=== PATIENT | male | born 1960 | race Caucasian/White ===

== ENCOUNTER 2020-06-11 11:12 | Emergency (ER) | payer MEDICAID, SELFPAY ==
[2020-06-11 11:17] VITALS: BP 150/98; PULSE 59; RESP 20; TEMP 36.6; O2SAT 99
--- NOTE | 2020-06-11 11:27 | ECG_ITS ---
Measurements Intervals [place] Rate: 51 P: 88 [place]: 156 QRS: 61 QRSD: 141 T: 87 QT: 467 QTc: 432 Interpretive Statements SINUS BRADYCARDIA RIGHT BUNDLE BRANCH BLOCK INFERIOR ST ELEVATION MYOCARDIAL INFARCT- ACUTE ABNORMAL ECG Electronically Signed On 06-11-2020 14:20:57 CDT by Steve De La Garza D.O.
--- NOTE | 2020-06-11 11:38 | ED.CHESTPAIN ---
HPI - Chest Pain General Chief Complaint: Chest Pain Stated Complaint: chest pain/lt arm pain/sore throat Time Seen by Provider: 06/11/20 11:20 Source: patient Mode of arrival: ambulatory Limitations: no limitations History of Present Illness HPI narrative: 59-year-old male. Presents to [facility] today ambulatory via triage. Chief complaint is onset of midsternal chest pressure radiating down left arm since yesterday. The patient denies any history of hypertension [place]. He is a non-smoker nondiabetic. The patient describes the pain as a burning sensation and pressure. It started intermittent and has now become constant. He notes associated dyspnea and trouble swallowing. Patient applied to EKG immediately upon arrival and noted to have ST elevations in lead I and II. MD complaint: chest pain and chest discomfort Pertinent past history: other (Denies ) Onset (ago): day(s) (1) Timing of current episode: constant Prior episodes: No Onset: during rest Pain location: substernal and left chest Pain radiation: left arm Severity: moderate Pain scale (0-10): 8 Quality: heaviness, sharp and burning Relieving factors: nothing Exacerbating factors: nothing Context: other (None reported ) Associated symptoms: dyspnea Treatment prior to arrival: none Related Data Home Medications Medication Instructions Recorded Confirmed No Home Medications 06/11/20 06/11/20 Allergies Allergy/AdvReac Type Severity Reaction Status Date / Time No Known Allergies Allergy Mild Unverified 06/11/20 11:24 Review of Systems Review of Systems: Narrative: CONSTITUTIONAL: Denies fever, chills, sweats. EYES: Denies visual changes, redness, discharge. ENT: Denies rhinorrhea, congestion, sore throat, otalgia. CARDIOVASCULAR: Mid-sternal Chest pain, dyspnea. RESPIRATORY: Denies dyspnea, wheezing, cough GASTROINTESTINAL: Denies abdominal pain, nausea, vomiting, diarrhea. GENITOURINARY: Denies dysuria, hematuria, abnormal discharge SKIN: Denies rash or itching. MUSCULOSKELETAL: Denies acute back pain, joint pain, or myalgia. NEUROLOGIC: Denies numbness, or focal weakness. PSYCHIATRIC: Denies anxiety or depression. All systems reviewed & are unremarkable except as noted in HPI and below PMFSH Past Medical History Medical History (Updated 06/11/20 @ 12:08 by Sachi A. Huegen, PROFESSOR OF GRAPHIC DESIGN-C) No known problems Exam Narrative: Exam Narrative: GENERAL: This is a well-nourished, well-developed patient, in no apparent distress. Obese. HEAD: normocephalic, atraumatic. EYES: PERRL. Sclera clear/white. Vision is grossly intact. EARS: External ears normal, auditory canals clear and without drainage, TMs normal without perforation. Hearing grossly intact. NOSE: External nose normal with no obvious nasal discharge, nares without redness, no rhinorrhea. THROAT: Mucous membranes moist, posterior pharynx clear. NECK: Neck supple, non-tender without lymphadenopathy, masses or thyromegaly. CARDIOVASCULAR: Bradycardia. RESPIRATORY: Clear to auscultation. Breath sounds equal bilaterally. No wheezes, rales, or rhonchi. GASTROINTESTINAL: Abdomen soft, non-tender, nondistended. Bowel sounds are active. No hepato-splenomegaly, or palpable masses. No guarding. SKIN: warm, intact with no suspicious lesions or rash, good texture and turgor. NEURO: awake, alert, and oriented to person, place and time. There were no obvious focal neurologic abnormalities. Steady gait EXTREMITIES: Normal range of motion. No edema. No calf tenderness. Negative Homans sign bilaterally. BACK: Nontender without deformity or crepitance. No flank tenderness. Vernal Coma Scale Eye Opening: Spontaneous 4 Vernal Coma Scale Motor: Obeys Commands 6 Davis Coma Scale Verbal: Oriented 5 Course Course Emergency Course: EKG completed 1132. ASA 324 given in clinic. Transfer Transfered to: [facility]: [facility] Transfer rationale: STEMI. Accepting physician: Concepcion CARDENAS @ [id number].
[2020-06-11] MEDS: ASPIRIN 81 MG CHEWABLE TABLET 324 MG PO (11:40)
== END 2020-06-11 11:43 | disposition short-term general hospital (02) ==
PROVIDERS: Emergency Provider Nurse Practitioner Adult Health
DX: I21.3 ST elevation (STEMI) myocardial infarction of unspecified site (principal)
CPT/HCPCS: 93005; 99215; A9270; G0463; J2250; J3010

== ENCOUNTER 2020-06-11 12:03 | Inpatient (IN) | payer MEDICAID, SELFPAY ==
[2020-06-11] VITALS (11 sets, daily range): BP systolic 128–161; BP diastolic 78–104; PULSE 48–78; RESP 16–22; TEMP 36.4–36.7; O2SAT 94–100; BMI 33.7
--- NOTE | ~2020-06-11 | US_ITS ---
EXAMINATION: US right upper quadrant EXAM DATE: 06/12/2020 11:41 INDICATION: Right upper quadrant pain. TECHNIQUE: Multiple grayscale and Doppler images of the abdomen right upper quadrant were obtained (b y a technologist who performed the scan) and subsequently reviewed. There is no prior study for shercie sutton. FINDINGS: Poor acoustic window, limiting evaluation of liver and pancreas. There is echogenic liver parenchyma, hepatic steatosis. Small region focal fatty sparing. There is no evidence of intrahepatic biliary duct dilation. Portal venous flow was seen in the hepatopedal, n ormal direction and has normal Doppler waveform. No right-sided hydronephrosis. Common bile duct is within normal size limits. Gallbladder is unremarkable. No cholelithiasis or p ericholecystic fluid. Technologist performing exam reports patient did not demonstrate sonographic Mu rphy's sign. Please note that this sign is less reliable in patients who have received pain medicati on. IMPRESSION: 1. Hepatic steatosis. Reviewed, dictated and finalized at location B. IMPRESSION: 1. Hepatic steatosis.
--- NOTE | 2020-06-11 11:55 | ED.CHESTPAIN ---
HPI - Chest Pain General Chief Complaint: Chest Pain Stated Complaint: STEMI Source: patient and EMS Mode of arrival: EMS Limitations: no limitations History of Present Illness HPI narrative: Patient presented via EMS for evaluation of chest pain. Patient initially seen at an urgent care this morning where he reported symptoms were present for over 24 hours. Patient had EKG done at which was consistent with STEMI, thus patient given ASA and transferred via EMS. Patient was not given nitroglycerin. At the time of arrival to our facility, patient is awake, alert and oriented. He reports mild neck discomfort, mild central chest pain. He reports pain is worse from yesterday but still mild overall in nature. He has some associated nausea, no vomiting, no shortness of breath or diaphoresis. Patient denies any abdominal pain. Patient states he does not see a primary care physician because he has no medical problems. Related Data Home Medications Medication Instructions Recorded Confirmed No Home Medications 06/11/20 06/11/20 Allergies Allergy/AdvReac Type Severity Reaction Status Date / Time No Known Allergies Allergy Mild Unverified 06/11/20 11:24 Review of Systems Review of Systems: Narrative: CONSTITUTIONAL: Denies fever CARDIOVASCULAR: Reports chest pain RESPIRATORY: Denies cough or dyspnea. GASTROINTESTINAL: Denies abdominal pain, reports nausea SKIN: Denies rash MUSCULOSKELETAL: Denies back pain NEUROLOGIC: Denies headache [facility] Social History Social History (Updated 06/11/20 @ 12:21 by Stacy Javier MD) Smoking status: Never smoker Exam Narrative: Exam Narrative: GENERAL: Awake, alert, conversant HEAD: Normocephalic, atraumatic. EYES: PERRLA and EOMI. ENT: Nares clear, no rhinorrhea or epistaxis. Mucous membranes moist. NECK: Supple. CHEST: No respiratory distress, breathing even and non labored HEART: Regular rate, sinus rhythm ABDOMEN:Non distended, non tender EXTREMITIES: Normal range of motion. No edema. SKIN: Warm, dry, no rash. NEURO:No focal deficits. Alert and oriented x3 Course Vital Signs Vital signs: Vital Signs Temperature 36.7 C 06/11/20 12:05 Pulse Rate 64 06/11/20 12:05 Respiratory Rate 20 06/11/20 12:05 Blood Pressure 138/82 06/11/20 12:05 Pulse Oximetry 97 06/11/20 12:05 Temperature 36.7 C 06/11/20 12:24 Pulse Rate 70 06/11/20 12:24 Respiratory Rate 18 06/11/20 12:24 Blood Pressure 132/78 06/11/20 12:24 Pulse Oximetry 98 06/11/20 12:24 MDM - Chest Pain MDM Narrative Medical decision making narrative: Patient is a 59-year-old who presented via EMS for evaluation of EKG changes and chest pain consistent with STEMI. Initial EKG from urgent care consistent with inferior STEMI, patient had began of an aspirin and nitroglycerin was held. Patient transported to our facility with stable vital signs, mild pain. At the time of assessment, pain continues to be mild he reports only mild nausea. He was given Zofran, pain medication, heparin bolus. Cardiology/Community Health Planning Director team reviewed the EKG and also felt it was consistent with inferior STEMI. Patient will be taking emergently to cardiac catheterization lab. Differential Diagnosis Differential diagnosis: Likely stable angina, unstable angina pectoris, atypical chest pain, st elevation myocardial infarction and chest pain Medical Records Data Attestation: I reviewed the patient's medical records. Lab Data Attestation: I reviewed the patient's lab results. ECG Data EKG #1: ECG completion date: 06/11/20 ECG completion time: 12:06 Interpretation: Rate 61, sinus rhythm, MD interval normal, QRS narrow, QTC normal, ST elevation inferiorly, leads II, 3, aVF with reciprocal changes, consistent with STEMI, STEMI called Compared to EKG from urgent care also consistent with STEMI. Critical Care Time Critical Care Time Critical Care Time: Yes Total Critical Care Time: 30 Discharg
--- NOTE | 2020-06-11 12:10 | ECG_ITS ---
Measurements Intervals [place] Rate: 61 P: 56 [place]: 123 QRS: 47 QRSD: 139 T: 88 QT: 429 QTc: 434 Interpretive Statements SINUS RHYTHM ATRIAL PREMATURE COMPLEX RIGHT BUNDLE BRANCH BLOCK INFERIOR ST ELEVATION MYOCARDIAL INFARCT- ACUTE BASELINE ARTIFACT- V1, V5 ABNORMAL ECG Electronically Signed On 06-11-2020 14:22:12 CDT by Steve De La Garza D.O.
--- NOTE | 2020-06-11 13:12 | ECG_ITS ---
Measurements Intervals [place] Rate: 69 P: 123 [place]: 110 QRS: 27 QRSD: 146 T: 34 QT: 417 QTc: 448 Interpretive Statements SINUS RHYTHM WITH SHORT [place] INTERVAL ATRIAL PREMATURE COMPLEXES RIGHT BUNDLE BRANCH BLOCK INFERIOR ST ELEVATION MYOCARDIAL INFARCT- ACUTE BASELINE WANDER- I, AVR, AVL ABNORMAL ECG Electronically Signed On 06-11-2020 14:22:40 CDT by Steve De La Garza D.O.
--- NOTE | 2020-06-11 13:18 | WPDCARDPROC ---
Cardiac Cath Procedure Note Date of procedure:: 06/11/20 Performing physician:: Jt Benoit MD Indication:: inferior wall ST-elevation [place] with late presentation Brief clinical history:: 59-year-old man without previous cardiac history reports onset of significant retrosternal chest pain with nausea yesterday afternoon at 3:00 p.m.. Symptoms worsened this morning and so he came to the emergency room late morning/ early afternoon. ECG demonstrates evidence of acute inferior wall injury pattern. Procedure Procedure performed:: Emergency coronary angiography and left ventriculography emergency PCI to distal RCA bifurcation with PTCA/kissing balloon angioplasty Sedation/Medication given:: fentanyl 50 mg Versed 2 mg case start time 12:26 p.m. case end time 1:07 p.m. sedation provided by Ioana [facility] RN, trained observer Access site:: right femoral Estimated blood loss:: 20-30 CC Procedure note:: patient was brought to the cardiac catheterization lab in the emergency setting as described above. The right femoral triangle was prepped and draped in the normal fashion. Anesthesia was provided with 10 cc of 1% lidocaine infiltrated locally. Using the modified Seldinger technique the femoral artery was punctured and a 6 [place] vascular sheath was placed. After this I used a standard 5 [place] FL4 catheter to engage inject the left coronary artery in multiple projections. Following this a 6 [place] JR4 guiding catheter was used to engage inject the right coronary artery. The same catheter was used to initiate PCI of the distal RCA as detailed below. Following initial inflations this catheter was exchanged for a 6 [place] JR4 with side holes. Prior to PCI the patient was systemically anticoagulated with Angiomax. He did receive 1 dose of Brilinta 180 mg p.o.. Patient received aspirin and heparin in the emergency room as well. Following completion of PCI the guiding catheter was removed and a 5 [place] angled pigtail catheter was used to measure left-sided hemodynamics and to injected LV g in the HOBBS projection. Pullback pressures were measured across the aortic valve. The case was then terminated the sheath was sutured into position any was taken to the ICU for recovery. Findings:: Hemodynamics: Central aortic pressure was 121/73 left ventricle 121/6 end-diastolic pressure 14 there is no systolic gradient on pullback across the aortic valve. The left ventricle is normal in size the mid to basal segment of the inferior wall is akinetic. The diaphragmatic segment contracts well the anterior wall contracts well global ejection fraction I would visually estimate to be 50%. The left main coronary artery is medium in caliber and nicely patent the LAD is a medium caliber artery that is diffusely disease. There is about 80% stenosis proximally and 70-80% stenosis in the midportion of the vessel. The entire vessel however has visible atherosclerosis the circumflex is a moderate caliber artery that is also severely diffusely diseased. The 1st OM takes off is a high ramus intermedius branch and has proximal 90-95% stenosis. The 2nd marginal branch is also a medium-sized artery that has proximal and mid 90% lesion. The distal 3rd OM branch is relatively small but also has proximal 90% stenosis. The right coronary artery is dominant to the posterior circulation is medium in caliber. The trunk of the right coronary artery is free of significant lesions but it is 100% occluded distally at the site of the PDA/PL bifurcation this is the culprit for the patient's presentation. Intervention: The patient initially as stated above had the right coronary engaged with the standard JR4 guiding catheter. a artery was wired using a 0.014 BMW wire which passed into the RPL system. I made a balloon inflation at the occlusion which did restore flow into the PL as well as into the PDA with these vessels could be visualized. It was clear
[2020-06-11 13:41] LABS: Basophils Absolute Auto 0.1 K/mm3 (0.0-0.1); Basophils Percent Auto 0.8 % (0.2-1.2); Eosinophils Absolute Auto 0.1 K/mm3 (0-0.3); Eosinophils Percent Auto 0.9 % (0-4.4); Hematocrit 46.9 % (42.0-52.0); Hemoglobin 16.3 g/dL (14.0-18.0); Immature Granulocyte Absolute 0.01 K/mm3 (0.00-0.031); Immature Granulocyte Percent A 0.1 % (0-0.5); Lymphocytes Absolute Auto 1.13 K/mm3 (0.9-3.2); Lymphocytes Percent Auto 14.6 % (18.3-44.2); Mean Corpuscular HGB Conc 34.8 g/dl (32-36); Mean Corpuscular Hemoglobin 31.1 pg (26-34); Mean Corpuscular Volume 89.5 fl (80-100); Mean Platelet Volume 10.7 fl (7.4-10.4); Monocytes Absolute Auto 0.4 K/mm3 (0.1-0.6); Neutrophils Absolute Auto 6.1 K/mm3 (1.3-6.7); Neutrophils Percent Auto 78.6 % (45.5-73.1); Platelet Count Result 165 k/mm3 (150-375); Red Blood Count 5.24 M/mm3 (4.6-6.20); Red Cell Distribution Width 12.4 % (11.5-14.5); White Blood Count 7.7 K/mm3 (4.5-10.0)
--- NOTE | 2020-06-11 13:50 | PM.IMHP ---
H&P: HPI History of Present Illness Date/Time: 06/11/20 13:50 Chief complaint: STEMI Narrative: Papa Fields is a 59 year old male Who presented to the emergency room a short time ago with chest pain and his electrocardiogram was consistent with an acute inferior wall myocardial infarction. I am seeing the patient in the cardiac catheterization lab very briefly while he is prepared for emergency angiography as the STEMI protocol was activated following his presentation. The patient reports that he has not been known to have any cardiac problems in the past in fact he was on no home medications for any prior medical problems. He reports that he started to experience these symptoms at about 3:00 p.m. yesterday afternoon he describes a retrosternal pain / burning like sensation associated with nausea. The symptoms were waxing and waning but they were present throughout the evening and worsened this morning so he came to the emergency room and called an ambulance. The patient as he is being prepped for emergency catheterization appears to be comfortable but is reporting residual 5/10 retrosternal chest pain. He is in sinus rhythm and there is no evidence of AV node dysfunction as of this time. Review of Systems Review of Systems: ROS unobtainable: Yes unobtainable due to medical condition [facility] Social History Social History (Updated 06/11/20 @ 12:21 by Stacy Javier MD) Smoking status: Never smoker Meds Home Medications and Allergies Home Medications Medication Instructions Recorded Confirmed Type No Home Medications 06/11/20 06/11/20 History Allergies Allergy/AdvReac Type Severity Reaction Status Date / Time No Known Allergies Allergy Mild Unverified 06/11/20 11:24 Vital Signs Vital Signs - 24 hr 06/11/20 12:05 06/11/20 12:24 Temperature 36.7 C 36.7 C Pulse Rate 64 70 Respiratory Rate 20 18 Blood Pressure 138/82 132/78 Pulse Oximetry 97 98 Exam Const: General: in distress and uncomfortable Other: 59-year-old man as described above with moderate chest pain appears to be otherwise reasonably comfortable given the situation HENMT: Mouth: Yes moist mucous membranes Eyes: Sclera: sclerae normal Pupils: Equal, round and reactive pupils present Neck: Neck: supple and no JVD Thyroid: thyroid normal Other: carotid pulses are intact and are free of bruits Resp: Effort & Inspection: normal respiratory effort Auscultation: clear to auscultation bilaterally Cardio: Rate: regular rate Rhythm: regular rhythm Other: no murmur no gallop no rub PMI is difficult to palpate GI: GI Palp: Yes Soft to palpation Auscultation: normal bowel sounds Skin: General skin exam: normal color Neuro: Cognition (Neuro): normal cognition Extrem: General: normal to inspection H&P: Results Labs Labs: Short CBC 06/11/20 Range/Units 13:36 WBC 7.7 (4.5-10.0) K/mm3 Hgb 16.3 (14.0-18.0) g/dL Hct 46.9 (42.0-52.0) % Plt Count 165 (150-375) k/mm3 Assessment and Plan Additional Plan 59-year-old man without many previous health problems presenting to the emergency room with acute inferior wall myocardial infarction. Unfortunately presentation is rather late in the course of the his event. He is nonetheless still having chest pain and so is being brought to the cardiac catheterization lab for emergency angiography in hopes of providing revascularization. Jt Benoit MD [facility]
[2020-06-11 13:52] LABS: INR 1.2
[2020-06-11 13:53] LABS: Partial Thromboplastin Time 39.4 SECONDS (22.3-36.8)
[2020-06-11 13:53] LABS: Alanine Aminotransferase 49 U/L (4-50); Alkaline Phosphatase 67 U/L (38-126); Anion Gap 9 mmol/L (8-16); Aspartate Amino Transferase 64 U/L (17-59); Bilirubin,Total 2.5 mg/dL (0.2-1.3); Blood Urea Nitrogen 11 mg/dL (9-20); Calcium 8.7 mg/dL (8.4-10.2); Carbon Dioxide 28 mmol/L (22-30); Chloride 103 mmol/L (98-107); Cholesterol 180 mg/dL (0-200); Estimated Glomerular Filt Rate > 60; Glucose 113 mg/dL (75-110); HDL Direct 31 mg/dL; Potassium 4.4 mmol/L (3.4-5.0); Sodium 140 mmol/L (137-145); Triglycerides 91 mg/dL (<150)
--- NOTE | 2020-06-11 13:56 | ADMGEN ---
This patient, Papa Fields, was admitted to Intensive Care Unit-10. Patient/family oriented to hospital policies and general routines including ID bracelet, bed and alarms, visiting hours, pain management, procedures, bathroom and other care routines, personal items, smoking policy, room service/diet, and visiting hours. Valuables list has been completed. Information on how to activate the Rapid Response Team has been discussed. Patient/Family are encouraged to report perceived risks to care and to ask questions if they do not understand what they are told or what they should do.
--- NOTE | 2020-06-11 14:04 | WPDCNINT ---
Assessment and Plan Assessment and plan (1) ST elevation (STEMI) myocardial infarction: Code(s): I21.3 - ST elevation (STEMI) myocardial infarction of unspecified site Status: Acute Assessment and Plan: status post diagnostic catheterization and balloon angioplasty. It showed multivessel coronary disease. No stent was placed as patient will likely need CABG. Plan to transfer patient to outside hospital for CABG by Cardiology . EKG done in ICU shows persistent ST-elevation in inferior leads continue Angiomax for now. Plan to remove sheath once Angiomax infusion is complete aspirin, beta-goran, ARB, statin troponin pending and serial troponin ordered will check echocardiogram (2) Dysphagia: Code(s): R13.10 - Dysphagia, unspecified Status: Acute Assessment and Plan: patient reports dysphagia with solid and liquid. No abnormality seen from outside. Will check CT without contrast (3) CAD (coronary artery disease): Code(s): I25.10 - Atherosclerotic heart disease of [place] coronary artery without angina pectoris Status: Acute Assessment and Plan: see above (4) DVT prophylaxis: Code(s): Z29.9 - Encounter for prophylactic measures, unspecified Status: Acute Assessment and Plan: currently on Angiomax. Start Lovenox tomorrow (5) Chest pain: Code(s): R07.9 - Chest pain, unspecified Status: Acute Assessment and Plan: patient continues to have mild chest pain although it is better since presentation. Will give sublingual nitroglycerin at this time and if persistent will start nitroglycerin infusion. Composite Bond Technician Consult Note Consult date: 06/11/20 Time Seen: 13:50 HPI: Papa Fields is a 59 year old male With no significant past med history who presented today to ER with chief complaint of chest pain that started suddenly yesterday around 3:00 p.m.. Pain in lower part of his chest, tightening in Quality, 5/10 severe, constant, radiated to left arm and jaw. pain was associated with nausea but no vomiting. No shortness of breath or palpitations. Pain persisted through today and led him to present to urgent care. An EKG was done there which was consistent with STEMI. Patient was given aspirin and sent to ER. Patient was emergently taken to cardiac catheterization lab and underwent balloon angioplasty. Catheterization showed 50% EF and multivessel coronary artery disease. Postprocedure patient was admitted to ICU for further evaluation and management. Patient states that his pain is now 2 to 3/10 severe but the radiation to his jaw and neck has gone. He denies any other complaints at this time. Review of system is positive for dysphagia which is intermittent has been going on for months. Patient states this both with solids and liquids and feels the food sticks in his throat like and knot with symptoms resolved spontaneously and he has not look for any medical treatment or evaluation for it. he has not seen a physician in last 5 years. Review system is also positive for left knee pain which is intermittent and not present at this time. it started and he was working while weight-bearing on his knee. he denies any pain with regular walking or knee movement but states that it hurts sometimes when he per presses on his knee and a specific point Review of Systems Review of Systems: All systems reviewed & are unremarkable except as noted in HPI and below (HPI) PMFSH Past Medical History Medical History No known problems Social History Social History Smoking status: Never smoker Alcohol intake: never Substance use: never Substance use type: does not use Gender identity (if verbalized by the patient): Male Spiritual care concerns: No Meds Home Medications and Allergies Home Medications
[2020-06-11 14:05] LABS: LDL Cholesterol Direct 124 mg/dL
[2020-06-11] MEDS: NITROGLYCERIN SL 0.4 MG TABLET SUBLINGUAL (14:22)
[2020-06-11] MEDS: SODIUM CHLORIDE 0.9% IV 1,000 ML 125 ML IV CONT (14:32)
[2020-06-11 15:01] LABS: Thyroid Stimulating Hormone 0.791 uIU/mL (0.465-4.680)
[2020-06-11] MEDS: ACETAMINOPHEN 500 MG TABLET 1000 MG PO (15:58)
--- NOTE | 2020-06-11 17:30 | PC.NURSE ---
sheath pulled and hemostasis achieved at 1700, vital monitored every 5 minutes during process and remained stable, site clean dry, no hematoma present
[2020-06-12] VITALS (11 sets, daily range): BP systolic 100–134; BP diastolic 61–85; PULSE 48–65; RESP 20–25; TEMP 36.5–37; O2SAT 95–98
--- NOTE | 2020-06-12 | ECHO_ITS ---
Patient Info Name: Papa Fields Age: 59 years : 1960 Gender: Male Ht: 75 in Wt: 263 lbs BSA: 2.54 m2 HR: 53 bpm BP: 100 / 66 mmHg Heart Rhythm: Bradycardia, Sinus Rhythm Technical Quality: Good Exam Date: 06/12/2020 8:49 AM Exam Location: [facility] Pulmonary Patient Status: Inpatient Admit Date: 06/11/2020 Staff Ordering Physician: Troy Vargas MD Control Chemist: Jonny Rosario, JORJE, RT Attending Provider: Jt Benoit MD Exam Type: CA echo dop color flow w con Study Info Indications I21.3 - ST elevation (STEMI) myocardial infarction of unspecified site Complete two-dimensional, color flow and Doppler transthoracic echocardiogram is performed with contrast to opacify the left ventricle and to improve the deliniation of the left ventricle endocardial borders. Summary 1. Normal left ventricular size with mild concentric hypertrophy. There is severe hypokinesis of the mid and distal inferior septal and inferior posterior abdullahi but the remainder of the ventricle has good contractility with an overall estimated ejection fraction of 60-65%. Normal diastolic function. 2. Right ventricular chamber dimension is mildly enlarged. 3. Left atrial chamber dimension is mildly enlarged. 4. Right ventricular systolic pressure could not be estimated on this study. 5. Sinus bradycardia. 6. Technically difficult study, definity echo contrast used. Left Ventricle Left ventricular chamber dimension is normal. Left ventricular systolic function is mildly reduced, estimated at 60-65%. There is mildly increased left ventricular wall thickness. Left ventricular septal wall motion is normal. The left ventricular diastolic function is normal. Normal left ventricular size with mild concentric hypertrophy. There is severe hypokinesis of the mid and distal inferior septal and inferior posterior abdullahi but the remainder of the ventricle has good contractility with an overall estimated ejection fraction of 60-65%. Normal diastolic function. Right Ventricle Right ventricular chamber dimension is mildly enlarged. Right ventricular systolic function is normal. Left Atria Left atrial chamber dimension is mildly enlarged. Right Atria Right atrial chamber dimension is normal. Aortic Valve The aortic valve is trileaflet. There is no aortic valve sclerosis. There is no aortic valve stenosis. There is no aortic valve regurgitation. Pulmonic Valve The pulmonic valve is normal. There is no pulmonic valve stenosis. There is no pulmonic regurgitation. Mitral Valve The mitral valve has normal leaflets. There is no mitral valve stenosis. There is trace mitral valve regurgitation. Tricuspid Valve The tricuspid valve leaflets are normal. There is no significant tricuspid valve stenosis. There is trace tricuspid valve regurgitation. No pulmonary hypertension, estimated pulmonary arterial systolic pressure is Empty. Pericardium/Pleural The pericardium appears normal. There is no pericardial effusion. Inferior Vena Cava Normal inferior vena cava with >50% collapse upon inspiration consistent with Empty right atrial pressure, Empty. Aorta The aortic root size at the sinus of Valsalva is normal. The prox ascending aorta size is normal. There is mild aortic atherosclerosis. Left Ventricular Outflow Tract Name Value Normal
[2020-06-12 04:49] LABS: Hematocrit 45.5 % (42.0-52.0); Hemoglobin 15.7 g/dL (14.0-18.0); Mean Corpuscular HGB Conc 34.5 g/dl (32-36); Mean Corpuscular Hemoglobin 30.9 pg (26-34); Mean Corpuscular Volume 89.6 fl (80-100); Mean Platelet Volume 11.3 fl (7.4-10.4); Platelet Count Result 172 k/mm3 (150-375); Red Blood Count 5.08 M/mm3 (4.6-6.20); Red Cell Distribution Width 12.2 % (11.5-14.5); White Blood Count 11.5 K/mm3 (4.5-10.0)
[2020-06-12 05:05] LABS: Alanine Aminotransferase 65 U/L (4-50); Alkaline Phosphatase 70 U/L (38-126); Anion Gap 10 mmol/L (8-16); Aspartate Amino Transferase 260 U/L (17-59); Bilirubin,Total 3.5 mg/dL (0.2-1.3); Blood Urea Nitrogen 10 mg/dL (9-20); Carbon Dioxide 25 mmol/L (22-30); Chloride 104 mmol/L (98-107); Estimated CRCL calculation 100 ml/min; Estimated Glomerular Filt Rate > 60; Glucose 120 mg/dL (75-110); Magnesium 1.9 mg/dL (1.6-2.3); Potassium 3.9 mmol/L (3.4-5.0); Sodium 139 mmol/L (137-145)
--- NOTE | 2020-06-12 05:11 | ECG_ITS ---
Measurements Intervals [place] Rate: 54 P: MT: 0 QRS: -42 QRSD: 140 T: -52 QT: 476 QTc: 452 Interpretive Statements SINUS OR ECTOPIC ATRIAL RHYTHM WITH SHORT MT INTERVAL RIGHT BUNDLE BRANCH BLOCK VOLTAGE CRITERIA FOR LVH INFERIOR ST ELEVATION MYOCARDIAL INFARCT- RECENT BASELINE ARTIFACT- II, III ABNORMAL ECG Electronically Signed On 06-12-2020 10:40:50 CDT by Steve De La Garza D.O.
--- NOTE | 2020-06-12 07:00 | WPDINTPN ---
Progress Note: A&P Assessment and Plan (1) ST elevation (STEMI) myocardial infarction: Code(s): I21.3 - ST elevation (STEMI) myocardial infarction of unspecified site Status: Acute Assessment and Plan: status post diagnostic catheterization and balloon angioplasty. It showed multivessel coronary disease. No stent was placed as patient will likely need CABG. Plan to transfer patient to outside hospital for CABG by Cardiology . patient now chest pain-free. Completed Angiomax yesterday and sheath removed continue aspirin, beta-goran, ARB, statin pending echocardiogram (2) Dysphagia: Code(s): R13.10 - Dysphagia, unspecified Status: Acute Assessment and Plan: patient reports dysphagia with solid and liquid. No abnormality seen from outside. Will check CT without contrast which is pending (3) CAD (coronary artery disease): Code(s): I25.10 - Atherosclerotic heart disease of [place] coronary artery without angina pectoris Status: Acute Assessment and Plan: see above (4) Chest pain: Code(s): R07.9 - Chest pain, unspecified Status: Acute Assessment and Plan: resolved at this time (5) Hyperbilirubinemia: Code(s): E80.6 - Other disorders of bilirubin metabolism Status: Acute Assessment and Plan: bilirubin 3.5 with normal alkaline phosphatase likely intrahepatic cholestasis elevated AST > ALT are likely more consistent with his SD check right upper quadrant ultrasound (6) DVT prophylaxis: Code(s): Z29.9 - Encounter for prophylactic measures, unspecified Status: Acute Assessment and Plan: subcutaneous Lovenox Subjective Date/time seen: 06/12/20 Overnight events reviewed. Afebrile. Vitals acceptable Patient denies any chest pain today. He does still have some nausea. no other complaints Patient denies fever, chest pain, shortness of breath, cough, vomiting, abdominal pain, diarrhea, headache or constipation. Review of Systems Review of Systems: All systems reviewed & are unremarkable except as noted in HPI and below (HPI) Exam Narrative: Exam Narrative: General: Pt is alert awake and in NAD Lungs/Chest: Trachea central Clear BS B/L, No crackles or wheezing. Cardiac: RRR. Normal S1 S2. No murmurs Circulation: Pedal pulses are intact and symmetrical. Abdomen: Normal bowel sounds.. Soft. NT. ND. Extremities: No clubbing, cyanosis or edema. Warm right groin with no swelling or hematoma, no swelling redness or tenderness noticed on his left knee : Keith in place Neurologic: Follows commands. Moves all 4 extremities PERRL Skin: No Rash ENNT: no mass identified on palpation Objective Data Vital Signs Vital Signs: Vital Signs - 24 hr 06/11/20 12:05 06/11/20 12:24 06/11/20 13:27 Temperature 36.7 C 36.7 C Pulse Rate 64 70 67 Respiratory Rate 20 18 22 H Blood Pressure 138/82 132/78 142/97 H Pulse Oximetry 97 98 99 06/11/20 13:57 06/11/20 14:00 06/11/20 14:57 Temperature 36.6 C Pulse Rate 58 L 63 78 Respiratory Rate 17 20 Blood Pressure 161/104 H 128/100 H Pulse Oximetry 100 94 06/11/20 16:00 06/11/20 18:00 06/11/20 18:57 Temperature 36.4 C L Pulse Rate 51 L 49 L 48 L Respiratory Rate 20 16 Blood Pressure 149/89 H Pulse Oximetry 94 100 06/11/20 20:00 06/11/20 22:00 06/12/20 00:00 Temperature 37.0 C Pulse Rate 58 L 56 L 49 L Respiratory Rate 18 22 H Blood Pressure 110/70 Pulse Oximetry 100 95 06/12/20 00:46 06/12/20 02:00 06/12/20 04:00 Temperature 36.7 C Pulse Rate 49 L 55 L 52 L Respiratory Rate 23 H Blood Pressure 100/66 Pulse Oximetry 97 06/12/20 06:00 06/12/20 08:00 06/12/20 09:30 Temperature 36.7 C Pulse Rate 56 L 58 L 50 L Respiratory Rate 20 Blood Pressure 120/61 Pulse Oximetry 95 Intake/Output Intake/Output: Intake & Output 06/09/20 06/10/20 06/11/20 06/12/20 23:59 23:59 23:59 23:59 Inta
[2020-06-12] MEDS: ONDANSETRON INJ 4 MG/2 ML VIAL IV PUSH (07:47)
[2020-06-12] MEDS: MAGNESIUM SULF 1 GM/D5W 100 ML 1 GM/100 ML BAG IVPB (07:47)
[2020-06-12] MEDS: ASPIRIN 81 MG CHEWABLE TABLET PO (09:29)
[2020-06-12] MEDS: ROSUVASTATIN 10 MG TABLET 20 MG PO (09:29)
[2020-06-12] MEDS: LOSARTAN POTASSIUM 12.5 MG TABLET PO (09:29)
[2020-06-12] MEDS: PERFLUTREN LIPID MICROSPHERES 1.5 ML VIAL DILUTED TO 10 ML TOTAL VOLUME IV PUSH (09:36)
--- NOTE | 2020-06-12 09:52 | PC.NURSE ---
EKG completed by central service technician. Noted ST elevation. EKG shown to Bobbi Hubbard NP.
--- NOTE | 2020-06-12 12:49 | PM.PNCARD ---
Progress Note: A&P Assessment and Plan (1) ST elevation (STEMI) myocardial infarction: Code(s): I21.3 - ST elevation (STEMI) myocardial infarction of unspecified site Status: Acute Assessment and Plan: 59 year old male who presented to the emergency room with chest pain and his electrocardiogram was consistent with an acute inferior wall myocardial infarction. He was taken emergently to the cardiac catheterization lab by Dr. Benoit. Findings significant for: Severe diffuse multivessel coronary artery disease involving high-grade stenosis in the proximal and mid LAD as well as in the ramus intermedius, but both marginal branches of the circumflex. Acute inferior wall infarction due to 100% distal occlusion of the RCA at the bifurcation. He proceeded on to successful balloon angioplasty of the distal RCA bifurcation using kissing balloons restoring flow into both the PDA and PL branches. Mid to inferior akinesia overall ejection fraction appears to be in the vicinity of 50%. He had some discomfort post procedure which was resolved with 2 nitroglycerines. He was monitored overnight. Vital signs were stable. He complained of nausea this morning which is slowly resolved. He also notes some slight muscle achiness in his left chest that seems to wax and wane. Right groin site was without swelling or bleeding. No femoral bruit. Distal pulses intact. He will be transferred to [facility] for bypass surgery (2) Dysphagia: Code(s): R13.10 - Dysphagia, unspecified Status: Acute Assessment and Plan: Notes on occasion any feels that there is a lump in his throat and it is difficult for him to swallow foods. He states that he continues to try to eat in all of the sudden the lump disappears. Additional Plan plan discussed with Dr Linares 1250 06/12/2020 Subjective Date/time seen: 06/12/20 12:49 Interval history: Follow-up for: STEMI with balloon angioplasty to RCA. Multi-vessel disease needing bypass. Dysphagia. Date of service: 06/12/2020 Subjective: Nausea this morning which has resolved. Sipped on an Ensure. Muscle type aching coming and going in the left chest. Barely noticeable. Denied shortness of breath or lightheadedness. Review of Systems Constitutional: Constitutional: Denies chills and Denies fatigue Eyes: Eyes: Denies blurry vision ENT: Reports Normal hearing present and Denies epistaxis Cardiovascular: Cardiovascular: Denies chest pain, Denies pedal edema, Denies irregular heart rhythm, Denies lightheadedness, Denies radiating jaw, neck or arm pain, Denies palpitations and Denies dyspnea on exertion Respiratory: Respiratory: Denies dyspnea and Denies dyspnea on exertion Gastrointestinal: Gastrointestinal: Reports dysphagia and Reports nausea Genitourinary: Genitourinary: Denies hematuria Musculoskeletal: Musculoskeletal: Denies back pain and Denies neck pain Integumentary/Breasts: Skin/Breast: Denies erythema, Denies rash and Denies unusual bruising Neurologic: Denies headache(s) and Denies numbness Psychiatric: Psychiatric: Denies anxiety and Denies depression Exam Const: General: cooperative, comfortable and no acute distress Nutritional Appearance: overweight Orientation/consciousness: patient oriented x3 Other: 59-year-old man as described above with moderate chest pain appears to be otherwise reasonably comfortable given the situation HENMT: Mouth: Yes moist mucous membranes Eyes: Sclera: sclerae normal Pupils: Equal, round and reactive pupils present Neck: Neck: supple and no JVD Other: carotid pulses are intact and are free of bruits Resp: Effort & Inspection: normal respiratory effort and able to speak in complete sentences Auscultation: clear to auscultation bilaterally Cardio: Rate: regular rate Rhythm: regular rhythm Heart sounds: S1 normal heart sound present, S2 normal h
--- NOTE | 2020-06-12 13:25 | PM.TDS ---
Transfer Discharge Sum: Prov Provider Date of admission: 06/11/20 12:13 Primary care physician: No primary care physician at this time Admitting clinician: Jt Benoit MD DS: Admitting Diagnosis Admitting Diagnosis Admitting Diagnosis: STEMI DS: Discharge Diagnosis Discharge Diagnosis (1) ST elevation (STEMI) myocardial infarction: Code(s): I21.3 - ST elevation (STEMI) myocardial infarction of unspecified site Status: Acute Assessment and Plan: 59 year old male who presented to the emergency room with chest pain and his electrocardiogram was consistent with an acute inferior wall myocardial infarction. He was taken emergently to the cardiac catheterization lab by Dr. Benoit. Findings significant for: Severe diffuse multivessel coronary artery disease involving high-grade stenosis in the proximal and mid LAD as well as in the ramus intermedius, but both marginal branches of the circumflex. Acute inferior wall infarction due to 100% distal occlusion of the RCA at the bifurcation. He proceeded on to successful balloon angioplasty of the distal RCA bifurcation using kissing balloons restoring flow into both the PDA and PL branches. Mid to inferior akinesia overall ejection fraction appears to be in the vicinity of 50% . He had some discomfort post procedure which was resolved with nitroglycerin x2. He was monitored overnight. Vital signs were stable. He complained of nausea this morning which is slowly resolved. He also notes some slight muscle achiness in his left chest that seems to wax and wane. Right groin site was without swelling or bleeding. No femoral bruit. Distal pulses intact. He will be transferred to [facility] for bypass surgery (2) Dysphagia: Code(s): R13.10 - Dysphagia, unspecified Status: Acute Assessment and Plan: Notes on occasion any feels that there is a lump in his throat and it is difficult for him to swallow foods. He states that he continues to try to eat in all of the sudden the lump disappears. (3) Hyperbilirubinemia: Code(s): E80.6 - Other disorders of bilirubin metabolism Status: Acute Assessment and Plan: Abdominal ultrasound: Hepatic steatosis. Transfer Discharge Sum: Med Medications Active and Home Medications: Home Medications No Home Medications 06/11/20 [History Confirmed 06/11/20] Active Medications Acetaminophen (Tylenol Tablet) 1,000 mg PO Q6H PRN PRN Reason: Mild Pain (1-3) or Fever Last Admin: 06/11/20 15:58 Dose: 1,000 mg Documented by: Aspirin (Aspirin Chewable) 81 mg PO DAILY@0800 [facility] Last Admin: 06/12/20 09:29 Dose: 81 mg Documented by: Calcium Carbonate (Tums) 500 mg PO Q6H PRN PRN Reason: Indigestion Enoxaparin Sodium (Lovenox) 40 mg SUB-Q DAILY [facility] Losartan Potassium (Losartan Potassium) 12.5 mg PO DAILY [facility] Last Admin: 06/12/20 09:29 Dose: 12.5 mg Documented by: Metoprolol Tartrate (Lopressor) 25 mg PO Q12HR [facility] Last Admin: 06/12/20 09:30 Dose: Not Given Documented by: Morphine Sulfate (Morphine Sulfate Inj (*Crx)) 2 mg IV PUSH Q4H PRN PRN Reason: Pain Rated 7-10 Nitroglycerin (Nitrostat Subl 0.4 Mg (1/150)) 0.4 mg SUBLINGUAL Q5MIN PRN PRN Reason: Chest Pain Last Admin: 06/11/20 14:22 Dose: 0.4 mg Documented by: Ondansetron HCl (Zofran Inj) 4 mg IV PUSH Q4H PRN PRN Reason: Nausea And Vomiting Last Admin: 06/12/20 07:47 Dose: 4 mg Documented by: Rosuvastatin Calcium (Crestor) 20 mg PO DAILY [facility] Last Admin: 06/12/20 09:29 Dose: 20 mg Documented by: Transfer Discharge Sum: Hosp Hospital Course Hospital course: Papa Fields is a 59 year old male that was brought to the emergency room via EMS from Urgent Care 06/11/2020. He had had chest discomfort starting in the afternoon prior to admission. EKG done there revealed ST-elevation in the inferi
== END 2020-06-12 16:50 | disposition short-term general hospital (02) | DRG 174 ==
LOC: ANHED 12:15 → ANHICU 12:17
PROVIDERS: Internal Medicine; Admitting Provider Specialist; Emergency Provider Emergency Medicine; Visit Provider Internal Medicine Cardiovascular Disease
PROC: 4A023N7 Measurement of Cardiac Sampling and Pressure, Left Heart, Percutaneous Approach (ICD-10-PCS; CPT 93452; principal; 2020-06-11 12:15)
PROC: 02703ZZ Dilation of Coronary Artery, One Artery, Percutaneous Approach (ICD-10-PCS; CPT 92920; 2020-06-11 12:15)
DX: I21.19 ST elevation (STEMI) myocardial infarction involving other coronary artery of inferior wall (principal); I25.10 Atherosclerotic heart disease of native coronary artery without angina pectoris; R13.10 Dysphagia, unspecified; E80.6 Other disorders of bilirubin metabolism
CPT/HCPCS: 36415; 76705; 80053; 80061; 83735; 84443; 84484; 85025; 85027; 85610; 85730; 86850; 86900; 86901; 92920; 93005; 93458; 99291; A9270; C1725; C1769; C1887; C1894; C8929; J0461; J0583; J1644; J2250; J2405; J3010; J3475; J7030; J7040; Q9957

== ENCOUNTER 2022-03-23 22:25 | Inpatient (IN) | payer OTHER, SELFPAY ==
--- NOTE | ~2022-03-23 | XR_ITS ---
EXAMINATION: XR chest 1V portable DATE: 03/23/2022 23:10 INDICATION: Dyspnea TECHNIQUE: frontal view of the chest was obtained. COMPARISON: None FINDINGS: Cardiomegaly. Opacities in the left mid to lower lung zone. Small bilateral pleural effusions. Median sternotomy wires and mediastinal surgical clips are seen, likely from prior coronary artery bypass g rafting. There has also been clipping of the left atrial appendage. IMPRESSION: 1. Opacities in the left mid and lower lung zone which could represent atelectasis or pneumonia. 2. Small bilateral pleural effusions. 3. Cardiomegaly. Reviewed, dictated and finalized at location A. IMPRESSION: 1. Opacities in the left mid and lower lung zone which could represent atelecta sis or pneumonia. 2. Small bilateral pleural effusions. 3. Cardiomegaly.
--- NOTE | ~2022-03-23 | XR_ITS ---
EXAMINATION: XR soft tissue neck DATE: 03/24/2022 11:20 INDICATION: Anterior neck pain and swelling. TECHNIQUE: 2 views of the neck soft tissues were obtained. COMPARISON: Chest CT 03/24/2022 FINDINGS: The adenoids, palatine tonsils, epiglottis, prevertebral soft tissues, and airway are chasity l. IMPRESSION: 1. Normal neck soft tissues. If there is clinical concern for neck infection, neck CT with contrast i s recommended. Reviewed, dictated and finalized at location A. IMPRESSION: 1. Normal neck soft tissues. If there is clinical concern for neck infection, n fallon CT with contrast is recommended.
--- NOTE | ~2022-03-23 | XR_ITS ---
EXAMINATION: XR chest 1V portable DATE: 03/27/2022 05:58 INDICATION: Acute congestive heart failure. Cardiomyopathy. TECHNIQUE: frontal view of the chest was obtained. COMPARISON: Chest radiograph dated 03/23/[address] dated 03/24/2022 FINDINGS: And seen is blunting at the costophrenic angles consistent with small bilateral pleural effusions. rspace opacities in the left mid and lower lung zones. No pulmonary edema or pneumothorax. Cardiomega ly. Median sternotomy wires and mediastinal surgical clips are seen, likely from prior coronary arter y bypass grafting. . Left atrial appendage closure device. IMPRESSION: 1. Cardiomegaly but without pulmonary edema. 2. Persistent small bilateral pleural effusions. 3. Airspace opacities in the left mid and lower lung zones which could represent associated atelectas is or pneumonia. Reviewed, dictated and finalized at location A. IMPRESSION: 1. Cardiomegaly but without pulmonary edema. 2. Persistent small bilateral pleural effusions. 3. Airspace opacities in the left mid and lower lung zones which could represen t associated atelectasis or pneumonia.
--- NOTE | ~2022-03-23 | CT_ITS ---
EXAMINATION: CTA chest PE protocol DATE: 03/24/2022 00:13 INDICATION: Dyspnea TECHNIQUE: Computed tomography angiography (CTA) of the chest was performed with 100 mL Omnipaque-350 intravenous contrast timed to evaluate the pulmonary arteries. Coronal maximum intensity projection 3D-reconstructions were created by the technologist. Automated exposure control and iterative reconst ruction technique were employed. Exam dose: 855.44 mGy-cm total exam DLP. COMPARISON: 03/23/2022 portable AP chest FINDINGS: There is diagnostic contrast enhancement of the pulmonary arteries and no evidence of pulmo nary embolism. No thoracic aortic aneurysm. Status post sternotomy and probable coronary bypass surgery. Cardiomegaly. No pericardial effusion. There are mild bilateral pleural effusions, right greater than left. Scattered mediastinal and hilar nonenlarged lymph nodes, possibly reactive. There are scattered bilateral pulmonary infiltrates and/atelectasis, mild in the right upper lobe pos terior segment left upper lobe lingula, prominent in the lower lobes, especially on the left. Normal morphology of the adrenal glands. Small sliding hiatal hernia. No suspicious osteolytic or osteosclerotic lesions. IMPRESSION: Cardiomegaly, mild bilateral pleural effusions, suggesting congestive changes Patchy bilateral pulmonary infiltrates and/atelectasis involving the upper lobes and to a greater ext ent lower lobes, especially on the left No evidence of pulmonary embolism Status post sternotomy and coronary bypass graft surgery Small sliding hiatal hernia Reviewed, dictated and finalized at Location A. Reviewed, dictated and finalized at location B. IMPRESSION: Cardiomegaly, mild bilateral pleural effusions, suggesting congest ebonie changes Patchy bilateral pulmonary infiltrates and/atelectasis involving the upper lobe s and to a greater extent lower lobes, especially on the left No evidence of pulmonary embolism Status post sternotomy and coronary bypass graft surgery Small sliding hiatal hernia
--- NOTE | 2022-03-23 22:26 | ECG_ITS ---
Measurements Intervals [place] Rate: 126 P: [place]: 0 QRS: 97 QRSD: 150 T: -33 QT: 360 QTc: 523 Interpretive Statements ATRIAL FLUTTER/TACHYCARDIA WITH RAPID VENTRICULAR RESPONSE RIGHT BUNDLE BRANCH BLOCK MINIMAL Q WAVES- INFERIOR LEADS BASELINE ARTIFACT- II, III, AVF ABNORMAL ECG Electronically Signed On 03-23-2022 23:27:33 CDT by Steve De La Garza D.O.
[2022-03-23 22:27] VITALS: BP 153/117; PULSE 63; RESP 18; TEMP 36.1; O2SAT 99
[2022-03-23 22:52] LABS: Basophils Absolute Auto 0.1 K/mm3 (0.0-0.1); Basophils Percent Auto 0.7 % (0.2-1.2); Eosinophils Absolute Auto 0.1 K/mm3 (0-0.3); Eosinophils Percent Auto 0.9 % (0-4.4); Hematocrit 42.5 % (42.0-52.0); Hemoglobin 13.7 g/dL (14.0-18.0); Immature Granulocyte Absolute 0.02 K/mm3 (0.00-0.031); Immature Granulocyte Percent A 0.2 % (0-0.5); Lymphocytes Absolute Auto 1.34 K/mm3 (0.9-3.2); Lymphocytes Percent Auto 15.4 % (18.3-44.2); Mean Corpuscular HGB Conc 32.2 g/dl (32-36); Mean Corpuscular Hemoglobin 28.4 pg (26-34); Mean Corpuscular Volume 88.2 fl (80-100); Mean Platelet Volume 10.7 fl (7.4-10.4); Monocytes Absolute Auto 0.5 K/mm3 (0.1-0.6); Monocytes Percent Auto 5.7 % (2.6-8.5); Neutrophils Absolute Auto 6.7 K/mm3 (1.3-6.7); Neutrophils Percent Auto 77.1 % (45.5-73.1); Platelet Count Result 172 k/mm3 (150-375); Red Blood Count 4.82 M/mm3 (4.6-6.20); Red Cell Distribution Width 15.2 % (11.5-14.5); White Blood Count 8.7 K/mm3 (4.5-10.0)
[2022-03-23 23:02] LABS: Alanine Aminotransferase 24 U/L (6-50); Albumin Level 4.2 g/dL (3.5-5.1); Alkaline Phosphatase 170 U/L (38-126); Anion Gap 11 mmol/L (8-16); Aspartate Amino Transferase 23 U/L (17-59); Bilirubin,Total 4.7 mg/dL (0.2-1.3); Blood Urea Nitrogen 28 mg/dL (9-20); Carbon Dioxide 19 mmol/L (22-30); Chloride 107 mmol/L (98-107); Estimated CRCL calculation 70 ml/min; Estimated Glomerular Filt Rate 52; Glucose 126 mg/dL (65-110); Potassium 3.9 mmol/L (3.4-5.0); Sodium 137 mmol/L (137-145)
[2022-03-23 23:21] LABS: Magnesium 1.9 mg/dL (1.6-2.3)
[2022-03-23 23:31] VITALS: BP 143/111; PULSE 126; RESP 29; O2SAT 94
[2022-03-23 23:31] LABS: NT Pro B Type Natriuretic Pept 7050 pg/mL (5-100)
[2022-03-23 23:37] LABS: Troponin I 0.047 ng/mL (0.000-0.034)
[2022-03-23 23:46] LABS: INR 1.3; Prothrombin Time 15.8 Seconds (11.1-14.7)
[2022-03-23 23:47] LABS: Partial Thromboplastin Time 32.9 SECONDS (22.3-36.8)
[2022-03-24] VITALS (18 sets, daily range): BP systolic 111–154; BP diastolic 64–116; PULSE 40–126; RESP 18–28; TEMP 35.9–36.5; O2SAT 95–99; BMI 29.7
--- NOTE | 2022-03-24 | ECHO_ITS ---
Patient Info Name: Papa Fields Age: 61 years : 1960 Gender: Male Ht: 75 in Wt: 237 lbs BSA: 2.41 m2 HR: 110 bpm BP: 136 / 109 mmHg Heart Rhythm: Atrial Fibrillation Technical Quality: Poor Exam Date: 03/24/2022 11:38 AM Exam Location: [facility] Pulmonary Exam Room: 212 Patient Status: Inpatient Admit Date: 03/24/2022 Staff Ordering Physician: Jt Benoit MD [employer] Custodian: Radha Gray RDCS Attending Provider: Minesh Mills MD Referring Physician: Kaycee PERDUE; Exam Type: CA echo doppler color flow Study Info Indications I50.20 - Unspecified systolic (congestive) heart failure - cad s/p cabg Complete two-dimensional, color flow and Doppler transthoracic echocardiogram is performed with contrast to opacify the left ventricle and to improve the deliniation of the left ventricle endocardial borders. Contrast/Agitated Saline Contrast/Ag. Saline: Definity Amount: 2.00 ml Administered By: Radha Gray [facility] Existing IV Access: Yes IV Access Condition: patent with no signs of infiltration Reason for Poor Study: patient body habitus Summary 1. Left ventricular chamber dimension is moderately enlarged. 2. Left ventricular systolic function is severely reduced, estimated at 20-25%. 3. The inferior posterior segments are akinetic. The remainder of the LV is severely hypodynamic. 4. Right ventricular chamber dimension is moderately enlarged. 5. Small amount of mitral and tricuspid regurgitation. 6. Comparison to prior exam LV function has declined and the patient is now in atrial fibrillation. Left Ventricle Left ventricular chamber dimension is moderately enlarged. Left ventricular systolic function is severely reduced, estimated at 20-25%. There is mild concentric increased left ventricular wall thickness. The left ventricular diastolic function is indeterminate. The inferior posterior segments are akinetic. The remainder of the LV is severely hypodynamic. Right Ventricle Right ventricular chamber dimension is moderately enlarged. Left Atria Left atrial chamber dimension is mildly enlarged. Right Atria Right atrial chamber dimension is mildly enlarged. Aortic Valve The aortic valve is normal. Pulmonic Valve The pulmonic valve is not well visualized. Mitral Valve The mitral valve has normal leaflets. There is trace mitral valve regurgitation. Tricuspid Valve The tricuspid valve leaflets are normal. There is mild tricuspid valve regurgitation. Pericardium/Pleural The pericardium appears normal. Aorta The aortic root size at the sinus of Valsalva is normal. Left Ventricular Outflow Tract Name Value Normal LVOT 2D LVOT Diameter 2.1 cm LVOT Doppler LVOT Peak Gradient 5 mmHg LVOT Mean Gradient 3 mmHg LVOT VTI 17 cm LVOT VTI/AV VTI Ratio 1.2 LVOT Stroke Volume 57 ml LVOT CO 14.3 l/min
[2022-03-24 00:20] LABS: Influenza A QL RT-PCR Negative (Negative); Influenza B QL RT-PCR Negative (Negative); SARS-CoV-2 RNA PCR Negative
--- NOTE | 2022-03-24 01:21 | ED.GENADULT ---
HPI - General Adult General Chief complaint: Shortness of Breath/Dyspnea Stated complaint: SOB Time Seen by Provider: 03/23/22 22:41 History of Present Illness HPI narrative: Patient is a 61-year-old gentleman who presents to the emergency department with chief complaint of shortness of breath. Patient states over the last several days has been having increasing shortness of breath worse with exertion. The patient states is also had a full feeling in the right side of his neck where he feels as though his neck is pulsating. Patient states that he has prior history of cardiac disease has had a bypass before in the past patient denies fever or chills denies abdominal pain diarrhea or vomiting. Patient reports no fever patient reports no prior history of congestive heart failure in the past Related Data Home Medications Medication Instructions Recorded Confirmed aspirin 81 mg capsule mg 03/23/22 atorvastatin 40 mg tablet tablet 03/23/22 metoprolol succinate 25 mg tablet PO 03/23/22 tablet,extended release 24 hr ramipril 5 mg capsule cap 03/23/22 Allergies Allergy/AdvReac Type Severity Reaction Status Date / Time No Known Allergies Allergy Mild Verified 03/23/22 22:38 Review of Systems Review of Systems: A 10 system review of systems was completed on the patient and is negative except for what is stated in the HPI. Nursing and ancillary documentation was reviewed. PMFSH Past Medical History Medical History (Updated 03/24/22 @ 03:33 by Mic Ceja MD) No known problems Family History Family History Other Unknown family medical history Social History Social History Smoking status: Never smoker Alcohol intake: never Substance use: never Substance use type: does not use Gender identity (if verbalized by the patient): Male Spiritual care concerns: No Comments Patient has past medical history significant for acute ST elevation TN and cardiac bypass surgery Exam Narrative: GENERAL: Well-appearing, well-nourished, and in no acute distress. HEAD: Normocephalic, atraumatic. EYES: PERRLA and EOMI. ENT: Nares clear, no rhinorrhea or epistaxis. Mucous membranes moist. NECK: Supple. CHEST: Clear to auscultation. No respiratory distress. HEART: Tachycardic rate and rhythm. No murmur heard. Normal peripheral pulses. ABDOMEN: Soft, nontender, nondistended, normal active bowel sounds. EXTREMITIES: Normal range of motion. No edema. SKIN: Warm, dry, no rash. NEURO: No focal deficits. Alert and oriented x3. PSYCH: Normal mood and affect. Course Course Emergency Course: EKG showed no evidence of acute ST elevation. Initial troponin was mildly elevated patient has had no chest pain with this. BNP was significantly elevated a chest x-ray showed evidence of pulmonary vascular congestion and cardiomegaly. PE protocol was obtained because the patient was tachycardic this showed no evidence of PE but did show findings of acute congestive heart failure with pleural effusions. Vital Signs Vital signs: Vital Signs Temperature 36.1 C L 03/23/22 22:27 Pulse Rate 63 03/23/22 22:27 Respiratory Rate 18 03/23/22 22:27 Blood Pressure 153/117 H 03/23/22 22:27 Pulse Oximetry 99 03/23/22 22:27 Oxygen Delivery Room Air 03/23/22 22:27 Temperature 36.4 C 03/24/22 02:31 Pulse Rate 126 H 03/24/22 02:45 Respiratory Rate 22 H 03/24/22 02:45 Blood Pressure 154/93 H 03/24/22 02:31 Pulse Oximetry 99 03/24/22 02:45 Oxygen Delivery Room Air 03/24/22 02:45 Medical Decision Making Vital Signs Vital Signs: Vital Signs Temperature 36.1 C L 03/23/22 22:27 Pulse Rate 63 03/23/22 22:27 Respiratory Rate 18 03/23/22 22:27 Blood Pressure 153/117 H 03/23/22 22:27 Pulse Oximetry 99 03/23/22 22:27 Oxygen Delivery Room Air 03/23/22
--- NOTE | 2022-03-24 01:23 | PM.IMHP ---
H&P: HPI History of Present Illness Date/Time: 03/24/22 01:23 Chief Complaint: Shortness of breath Narrative: This is a 61-year-old male with past medical history significant for coronary artery disease, status post coronary artery bypass graft, hypertension, obesity, dyslipidemia. Patient comes to the emergency room due to worsening shortness of breath for the last several days or so PND, orthopnea, decreased stamina, had to sleep in recliner, however denies any chest pain, no leg swelling, no ankle swelling, no pedal swelling, no dizziness, no lightheadedness, no syncope or near syncope, no calves pain, no palpitations, no chest fluttering, no nausea, no vomiting, no abdominal pain, no cough, no sputum production, no fevers, no rigors, no chills, appetite has been okay. Preliminary workup was significant for slight elevation of troponins EKG with atrial flutter with rapid ventricular response, chest x-ray shows bilateral pleural effusions. Patient is been admitted for further evaluation management and treatment. Review of Systems Review of Systems: Worsening shortness of breath with activity now at rest, PND, orthopnea, fatigue, decreased stamina. Constitutional: Constitutional: Denies chills, Reports fatigue, Denies fever(s), Reports lethargy, Denies malaise, Denies night sweats and Denies weakness Eyes: Eyes: Denies change in vision ENT: Denies dysphagia, Denies vertigo, Denies dizziness and Denies odynophagia Cardiovascular: Cardiovascular: Denies chest pain at rest, Denies chest pain with activity, Denies diaphoresis, Denies rapid heart rate, Denies pedal edema, Denies edema, Denies irregular heart rhythm, Denies claudication, Denies leg edema, Denies lightheadedness, Denies radiating jaw, neck or arm pain, Denies palpitations, Reports dyspnea on exertion, Reports orthopnea and Reports paroxysmal nocturnal dyspnea Respiratory: Respiratory: Denies cough Gastrointestinal: Gastrointestinal: Denies abdominal pain, Denies dyspepsia, Denies heartburn, Denies diarrhea, Denies nausea and Denies vomiting Genitourinary: Genitourinary: Denies dysuria Musculoskeletal: Musculoskeletal: Denies back pain, Denies myalgias, Denies arthralgias, Denies joint swelling and Denies muscle weakness Integumentary/Breasts: Skin/Breast: Denies rash Neurologic: Denies vertigo, Denies dizziness, Denies focal weakness and Denies Sensory deficit (Neuro) Psychiatric: Psychiatric: Reports no additional psychiatric complaints and Reports as per HPI Endocrine: Endocrine: Denies cold intolerance, Denies fatigue, Denies flushing, Denies heat intolerance, Denies polyphagia, Denies polydipsia and Denies palpitations Hematologic/Lymphatic: Hematologic/Lymphatic: Reports no additional hematologic/lymphatic complaints and Reports as per HPI Allergic/Immunologic: Allergic/Immunologic: Reports no additional allergic/immunologic complaints and Reports as per HPI PMFSH Past Medical History Medical History (Updated 03/24/22 @ 04:41 by Minesh Mills MD) No known problems Family History Family History Other Unknown family medical history Social History Social History Smoking status: Never smoker Alcohol intake: never Substance use: never Substance use type: does not use Gender identity (if verbalized by the patient): Male Spiritual care concerns: No Meds Home Medications and Allergies Home Medications Medication Instructions Recorded Confirmed Type aspirin 81 mg capsule 81 mg PO DAILY 03/23/22 03/24/22 History atorvastatin 40 mg tablet 1 tablet PO DAILY 03/23/22 03/24/22 History metoprolol succinate 25 mg 1 tablet PO DAILY 03/23/22 03/24/22 History tablet,extended release 24 hr ramipril 5 mg capsule 1 cap PO DAILY 03/23/22 03/24/22 History Allergies Allergy/AdvReac Type Severity Reaction Status Date /
[2022-03-24] MEDS: ASPIRIN 81 MG CHEWABLE TABLET 324 MG PO (01:42)
[2022-03-24] MEDS: FUROSEMIDE INJ 40 MG/4 ML VIAL IV PUSH ×3 (01:42→20:37)
--- NOTE | 2022-03-24 02:23 | ADMGEN ---
This patient, Papa Fields, was admitted to IMU Room 212-01 at 0223. Patient/family oriented to hospital policies and general routines including ID bracelet, bed and alarms, visiting hours, pain management, procedures, bathroom and other care routines, personal items, smoking policy, room service/diet, and visiting hours. Information on how to activate the Rapid Response Team has been discussed. Patient/Family are encouraged to report perceived risks to care and to ask questions if they do not understand what they are told or what they should do.
[2022-03-24 03:03] LABS: Troponin I 0.051 ng/mL (0.000-0.034)
[2022-03-24 07:28] LABS: Troponin I 0.057 ng/mL (0.000-0.034)
--- NOTE | 2022-03-24 08:23 | PM.IMPN ---
Progress Note: A&P Assessment and Plan (1) Acute exacerbation of CHF (congestive heart failure): Code(s): I50.9 - Heart failure, unspecified Status: Acute Assessment and Plan: CT chest w/ patch bilateral infiltrates and mild bilateral pulmonary effusions. Improved this morning. -Appreciate recommendations from Cardiology. -Continue diuresis -See H&P after midnight for full details. (2) Elevated troponin: Code(s): R77.8 - Other specified abnormalities of plasma proteins Status: Acute Assessment and Plan: Likely due to abnormal heart rhythm plus volume overload. Appreciate recommendations from Cardiology. Will monitor. (3) CAD (coronary artery disease): Code(s): I25.10 - Atherosclerotic heart disease of [place] coronary artery without angina pectoris Status: Acute Assessment and Plan: S/p CABG in 2020. On metoprolol, ASA and statin at home. Will continue. (4) MILKA (acute kidney injury): Code(s): N17.9 - Acute kidney failure, unspecified Status: Acute Assessment and Plan: Suspect cardiorenal syndrome. Sotalol started by Cardiology. Will monitor for now. (5) BMI 29.0-29.9,adult: Code(s): Z68.29 - Body mass index [BMI] 29.0-29.9, adult Status: Acute Assessment and Plan: Hx of CAD s/p CABG and does not have a PCP with new onset congestive heart failure. -A1C form AM labs Subjective Date/time seen: 03/24/22 08:23 Patient reports having CABG at [facility] after presenting to [facility] ED from urgent care. Says he has been well since the CABG without any issues. At home reports having some shortness of breath with exertion that has been wosrsening making a task like putting on his socks cause him to become breathless. Patient denies lightheadedness, palpitations. Patient does report he is now having right sided neck pain similar to a pain he had during his visit at [facility] for the heart attack. Describes the pain as an ache. Says there was no workup at that time as the CABG was emergent. Patient says he feels much better and has already been walking up and down the moss near his room without developing shortness of breath. Patient states he does not have a primary care physician and only sees a Contract Admin. Exam Narrative: GENERAL: NAD, cooperative HEENT: Normocephalic, atraumatic, anicteric, nares clear, oropharynx moist and clear, ok dentition NECK: Thick, asymmetric with R>L. Bulge is not pulsatile or tender to palpation. CV: Normal S1, S2, RRR, No MRG RESP: CTAB, Normal work of breathing. EXTREMITIES: Warm and well perfused, no clubbing, cyanosis. Objective Data Vital Signs Vital Signs: Vital Signs - 24 hr 03/23/22 22:27 03/23/22 22:37 03/23/22 23:31 Temperature 97.0 F L Pulse Rate 63 126 H Respiratory Rate 18 29 H Blood Pressure 153/117 H 143/111 H Pulse Oximetry 99 94 Oxygen Delivery Room Air Room Air 03/24/22 00:24 03/24/22 01:11 03/24/22 02:20 Temperature Pulse Rate 124 H 124 H 124 H Respiratory Rate 25 H 28 H 26 H Blood Pressure 136/116 H 144/115 H 142/115 H Pulse Oximetry 96 97 97 Oxygen Delivery 03/24/22 02:30 03/24/22 02:45 03/24/22 02:45 Temperature 97.6 F Pulse Rate 126 H 126 H 126 H Respiratory Rate 22 H 22 H Blood Pressure 154/93 H Pulse Oximetry 99 99 Oxygen Delivery Room Air 03/24/22 04:00 03/24/22 04:00 03/24/22 04:00 Temperature 97.7 F Pulse Rate 124 H 114 H 114 H Respiratory Rate 20 20 Blood Pressure 149/87 H Pulse Oximetry 99 99 Oxygen Delivery Room Air 03/24/22 06:00 03/24/22 08:00 03/24/22 02:31 Temperature 97.7 F 97.6 F Pulse Rate 122 H 115 H 126 H Respiratory Rate 18 22 H Blood Pressure 136/109 H 154/93 H Pulse Oximetry 95 99 Oxygen Delivery Meds/Results Medications: Active Medications Generic Name Dose Route Start Last Admin Trade Name Freq PRN Reason Stop Dose Admin Aspirin 81 mg
[2022-03-24] MEDS: METOPROLOL SUCCINATE EXT REL 25 MG TABCR PO (08:39)
[2022-03-24] MEDS: ATORVASTATIN 40 MG TABLET PO (08:39)
[2022-03-24] MEDS: ASPIRIN 81 MG CHEWABLE TABLET PO (08:39)
[2022-03-24 08:40] LABS: Basophils Absolute Auto 0.1 K/mm3 (0.0-0.1); Basophils Percent Auto 1.2 % (0.2-1.2); Eosinophils Absolute Auto 0.1 K/mm3 (0-0.3); Eosinophils Percent Auto 2.1 % (0-4.4); Hematocrit 43.8 % (42.0-52.0); Hemoglobin 14.1 g/dL (14.0-18.0); Immature Granulocyte Absolute 0.01 K/mm3 (0.00-0.031); Immature Granulocyte Percent A 0.1 % (0-0.5); Lymphocytes Absolute Auto 1.37 K/mm3 (0.9-3.2); Lymphocytes Percent Auto 20.1 % (18.3-44.2); Mean Corpuscular HGB Conc 32.2 g/dl (32-36); Mean Corpuscular Hemoglobin 28.5 pg (26-34); Mean Corpuscular Volume 88.5 fl (80-100); Monocytes Absolute Auto 0.5 K/mm3 (0.1-0.6); Monocytes Percent Auto 7.9 % (2.6-8.5); Neutrophils Absolute Auto 4.7 K/mm3 (1.3-6.7); Neutrophils Percent Auto 68.6 % (45.5-73.1); Platelet Count Result 154 k/mm3 (150-375); Red Blood Count 4.95 M/mm3 (4.6-6.20); Red Cell Distribution Width 15.2 % (11.5-14.5); White Blood Count 6.8 K/mm3 (4.5-10.0)
[2022-03-24] MEDS: ramipriL 5 MG CAPSULE PO (08:40)
[2022-03-24] MEDS: ENOXAPARIN 120 MG/0.8 ML SYRINGE 105 MG SUB-Q ×2 (08:40→20:36)
[2022-03-24 08:50] LABS: Anion Gap 10 mmol/L (8-16); Blood Urea Nitrogen 26 mg/dL (9-20); Calcium 8.7 mg/dL (8.4-10.2); Carbon Dioxide 23 mmol/L (22-30); Chloride 105 mmol/L (98-107); Estimated CRCL calculation 65 ml/min; Estimated Glomerular Filt Rate 57; Glucose 99 mg/dL (65-110); Potassium 3.7 mmol/L (3.4-5.0); Sodium 138 mmol/L (137-145)
--- NOTE | 2022-03-24 11:11 | PM.CNCAR ---
Assessment and Plan Assessment and plan (1) Acute exacerbation of CHF (congestive heart failure): Code(s): I50.9 - Heart failure, unspecified Status: Acute (2) Atrial flutter by electrocardiogram: Code(s): I48.92 - Unspecified atrial flutter Status: Acute Plan This is a 61-year-old man with multivessel coronary disease who underwent surgical revascularization in the fall of 2019 after he presented with acute inferior infarction. He has been doing well and was stable is recently as the February when he was seen in the office. He now presents with some decompensated heart failure. The obvious changes that he is now in atrial flutter which appears to be atypical flutter with heart rate in the 120s which has not been seen in this patient in the past. I am going to get an echocardiogram performed today and transition him from metoprolol to sotalol. I will anticoagulate him with Lovenox for the time being although he would not need long-term anticoagulation because of the fact that he has had his left atrial appendage amputated. If he remains in atrial flutter despite antiarrhythmic therapy we can electrically cardiovert him during this hospitalization since we do not have to be concerned about left atrial appendage clot. Jt Benoit MD [facility] History of Present Illness History of Present Illness Consult date/time: 03/24/22 11:11 Consult reason: congestive heart failure Reason For Visit: New Onset CHF,Elevated Troponin,Tachycardia Narrative: This is a 61-year-old man with coronary artery disease known to me in office follow-up. He entered the hospital yesterday with a 1-2 week history of increasing shortness of breath orthopnea and PND. He was found to be in some congestive heart failure in the emergency department and admitted to the hospital. It was a he was been treated with intravenous furosemide overnight and does feel noticeably better this morning he is not in any distress of any kind at this time and provides a very comfortable history. He is not having any chest pain pressure or heaviness he has not noticed any accumulating lower extremity edema. His chest x-ray shows enlargement of his cardiac silhouette and some left pleural fluid. He also was noted to be in what appears to be atypical atrial flutter with a heart rate in the 125 range since being seen in the emergency room. He has in the past in my office been in sinus rhythm. I last saw this gentleman in the office for an appointment on 02/13/2022 at which time he had no complaints and his heart rate was in the mid 50s. He noted the onset of the symptoms about 1-2 weeks ago. He did notice the last couple of days that if he a inspected his neck there was a more rapid pulse a dean that he used to seeing. Otherwise he was not aware of the sense of palpitations. His ECG did also demonstrates a chronic right bundle branch block. He has a significant history of coronary artery disease where he presented initially in June of 2020 with acute inferior wall infarction. He had total occlusion of his distal right coronary artery at the bifurcation of PDA and PL. He also had extensive disease in the left coronary artery for that reason I did standard about balloon angioplasty in the RPDA and PL branches and restored flow in the distal right coronary and sent him over to [facility] for surgical revascularization. He was taken to the OR where he received an CLAY graft to the LAD, a radial artery graft to the OM and a saphenous vein graft to the PDA. He also had an intraoperative Maze procedure with excision of the left atrial appendage. Following all of this in the office he has been doing well he does have mild LV dysfunction by echo in the office with an ejection fraction of about 45%. For this reason beta-goran and RESHMA-inhibitor therapy were continued. Review of Systems Constitutional: Constitutional: Reports no additional constitutional compla
[2022-03-24] MEDS: PERFLUTREN LIPID MICROSPHERES 1.5 ML VIAL DILUTED TO 10 ML TOTAL VOLUME IV PUSH (11:50)
[2022-03-24] MEDS: SOTALOL HCL 80 MG TABLET PO ×2 (13:32→20:37)
--- NOTE | 2022-03-24 15:00 | ECG_ITS ---
Measurements Intervals [place] Rate: 97 P: [place]: 0 QRS: 114 QRSD: 153 T: -5 QT: 413 QTc: 526 Interpretive Statements ATRIAL FLUTTER/TACHYCARDIA RIGHT AXIS DEVIATION RIGHT BUNDLE BRANCH BLOCK MINIMAL Q WAVES- INFERIOR LEADS ABNORMAL ECG Electronically Signed On 03-24-2022 18:47:08 CDT by Steve De La Garza D.O.
--- NOTE | 2022-03-24 22:21 | ECG_ITS ---
Measurements Intervals [place] Rate: 102 P: -57 [place]: 126 QRS: 111 QRSD: 159 T: -5 QT: 408 QTc: 532 Interpretive Statements ATRIAL FLUTTER/TACHYCARDIA WITH RAPID VENTRICULAR RESPONSE RIGHT AXIS DEVIATION RIGHT BUNDLE BRANCH BLOCK AND POSSIBLE RIGHT VENTRICULAR HYPERTROPHY BASELINE ARTIFACT- I, II, III, AVR, AVL, AVF ABNORMAL ECG Electronically Signed On 03-25-2022 7:50:25 CDT by Steve De La Garza D.O.
[2022-03-25] VITALS (16 sets, daily range): BP systolic 102–141; BP diastolic 68–94; PULSE 95–122; RESP 18–22; TEMP 36.3–36.4; O2SAT 16–100
--- NOTE | 2022-03-25 08:06 | PC.NURSE ---
Addendum entered by Ilene Tovar RN 03/25/22 08:10: This conversation took place at 0800 Original Note: Emmy Vidal, [employer] notified of elongating QTc on 12 lead EKG's. Pt to receive Sotalol 80mg Po q12h. QTc on first 12 lead EKG was 526. QTc on second EKG was 532. New order to hold morning dose of Sotalol. This RN also discussed making pt NPO. Dr. Benoit's note mentioned possibly Cardioverting patient during this hospital stay. New order to make pt NPO until seen by Cardiology.
[2022-03-25] MEDS: ASPIRIN 81 MG CHEWABLE TABLET PO (08:26)
[2022-03-25] MEDS: ENOXAPARIN 120 MG/0.8 ML SYRINGE 105 MG SUB-Q ×2 (08:27→21:12)
[2022-03-25] MEDS: ramipriL 5 MG CAPSULE PO (08:27)
[2022-03-25] MEDS: ATORVASTATIN 40 MG TABLET PO (08:27)
--- NOTE | 2022-03-25 08:43 | PM.IMPN ---
Progress Note: A&P Assessment and Plan (1) Acute exacerbation of CHF (congestive heart failure): Code(s): I50.9 - Heart failure, unspecified Status: Acute Assessment and Plan: CT chest w/ patch bilateral infiltrates and mild bilateral pulmonary effusions. Improved. -Appreciate recommendations from Cardiology. -Continue diuresis (2) Elevated troponin: Code(s): R77.8 - Other specified abnormalities of plasma proteins Status: Acute Assessment and Plan: Likely due to abnormal heart rhythm plus volume overload. Appreciate recommendations from Cardiology. Will monitor. (3) CAD (coronary artery disease): Code(s): I25.10 - Atherosclerotic heart disease of [place] coronary artery without angina pectoris Status: Acute Assessment and Plan: S/p CABG in 2020. On metoprolol, ASA and statin at home. Will continue. (4) MILKA (acute kidney injury): Code(s): N17.9 - Acute kidney failure, unspecified Status: Acute Assessment and Plan: Suspect cardiorenal syndrome. Sotalol started by Cardiology. Will monitor for now. (5) BMI 29.0-29.9,adult: Code(s): Z68.29 - Body mass index [BMI] 29.0-29.9, adult Status: Acute Assessment and Plan: Hx of CAD s/p CABG and does not have a PCP with new onset congestive heart failure. Subjective Date/time seen: 03/25/22 08:43 Patient says he feels much better and no longer has shortness of breath when walking up and down the moss. Says his baseline heart rate is usually in the 50s and he notices that it is higher when he moves around. Denies chest pain, shortness of breath, difficulty breathing. Review of Systems Cardiovascular: Cardiovascular: Denies chest pain and Denies palpitations Respiratory: Respiratory: Denies dyspnea Exam Narrative: GENERAL: NAD, cooperative HEENT: Normocephalic, atraumatic, anicteric, nares clear, oropharynx moist and clear, ok dentition NECK: Supple CV: Tachycardia no murmurs RESP: CTAB, Normal work of breathing. EXTREMITIES: Warm and well perfused, no clubbing, cyanosis. Objective Data Vital Signs Vital Signs: Vital Signs - 24 hr 03/24/22 12:00 03/24/22 10:00 03/24/22 14:00 Temperature 97.1 F L Pulse Rate 60 111 H 100 Respiratory Rate 18 Blood Pressure 123/82 Pulse Oximetry 98 Oxygen Delivery 03/24/22 16:00 03/24/22 16:00 03/24/22 18:00 Temperature 97.7 F Pulse Rate 40 L 106 H 111 H Respiratory Rate 18 Blood Pressure 111/66 Pulse Oximetry 95 Oxygen Delivery 03/24/22 20:00 03/24/22 20:37 03/24/22 20:00 Temperature 97.5 F L Pulse Rate 122 H 113 H 121 H Respiratory Rate 22 H Blood Pressure 125/92 H Pulse Oximetry 97 Oxygen Delivery 03/24/22 20:00 03/24/22 23:09 03/24/22 22:00 Temperature 96.7 F L Pulse Rate 113 H 121 H 105 H Respiratory Rate 22 H 22 H Blood Pressure 112/64 Pulse Oximetry 97 98 Oxygen Delivery Room Air 03/25/22 00:00 03/25/22 00:00 03/25/22 02:00 Temperature Pulse Rate 103 H 121 H 101 H Respiratory Rate 22 H Blood Pressure Pulse Oximetry 98 Oxygen Delivery Room Air 03/25/22 04:00 03/25/22 04:00 03/25/22 04:00 Temperature 97.6 F Pulse Rate 95 101 H 95 Respiratory Rate 22 H 20 Blood Pressure 113/84 Pulse Oximetry 98 99 Oxygen Delivery Room Air 03/25/22 06:00 03/25/22 08:00 Temperature 97.5 F L Pulse Rate 95 101 H Respiratory Rate 20 Blood Pressure 141/90 H Pulse Oximetry 100 Oxygen Delivery Intake/Output Intake/Output: Intake & Output 03/22/22 03/23/22 03/24/22 03/25/22 23:59 23:59 23:59 23:59 Intake Total 1080 500 Output Total 1750 800 Balance -670 -300 Meds/Results Medications: Active Medications Generic Name Dose Route Start Last Admin Trade Name Freq PRN Reason Stop Dose Admin Aspirin 81 mg 03/24/22 08:00 03/25/22 08:26 Aspirin 81 Mg Chewable Tablet PO 81 mg DAILY@0
[2022-03-25 09:19] LABS: Basophils Absolute Auto 0.1 K/mm3 (0.0-0.1); Basophils Percent Auto 1.5 % (0.2-1.2); Eosinophils Absolute Auto 0.3 K/mm3 (0-0.3); Hematocrit 45.4 % (42.0-52.0); Hemoglobin 14.7 g/dL (14.0-18.0); Immature Granulocyte Absolute 0.02 K/mm3 (0.00-0.031); Immature Granulocyte Percent A 0.3 % (0-0.5); Lymphocytes Absolute Auto 1.62 K/mm3 (0.9-3.2); Lymphocytes Percent Auto 22.5 % (18.3-44.2); Mean Corpuscular HGB Conc 32.4 g/dl (32-36); Mean Corpuscular Hemoglobin 28.4 pg (26-34); Mean Corpuscular Volume 87.6 fl (80-100); Monocytes Absolute Auto 0.5 K/mm3 (0.1-0.6); Monocytes Percent Auto 7.4 % (2.6-8.5); Neutrophils Absolute Auto 4.6 K/mm3 (1.3-6.7); Neutrophils Percent Auto 64.3 % (45.5-73.1); Platelet Count Result 192 k/mm3 (150-375); Red Blood Count 5.18 M/mm3 (4.6-6.20); Red Cell Distribution Width 15.1 % (11.5-14.5); White Blood Count 7.2 K/mm3 (4.5-10.0)
[2022-03-25 09:36] LABS: Anion Gap 10 mmol/L (8-16); Blood Urea Nitrogen 26 mg/dL (9-20); Calcium 8.7 mg/dL (8.4-10.2); Carbon Dioxide 26 mmol/L (22-30); Chloride 104 mmol/L (98-107); Estimated CRCL calculation 65 ml/min; Estimated Glomerular Filt Rate 57; Glucose 104 mg/dL (65-110); Potassium 3.6 mmol/L (3.4-5.0); Sodium 140 mmol/L (137-145)
--- NOTE | 2022-03-25 11:42 | PM.PNCARD ---
Progress Note: A&P Assessment and Plan (1) Persistent atrial fibrillation: Code(s): I48.19 - Other persistent atrial fibrillation Status: Acute Assessment and Plan: Patient presents with persistent atrial fibrillation and intermittent atrial flutter, often RVR. Started on sotalol 03/24/2022 (dose held this a.m.; requested RN provide for pt). Anticoagulated with Lovenox at this time, future anticoagulation per Dr. Benoit Plan is to cardiovert tomorrow, with Dr. Benoit. (2) Acute systolic heart failure: Code(s): I50.21 - Acute systolic (congestive) heart failure Status: Acute Assessment and Plan: Patient presents with acute systolic heart failure Due to persistent AFib/flutter RVR and worsening of his cardiomyopathy. Feels much better after diuresis. Judging from the patient's chest x-ray and exam, I think he needs more diuresis; will resume furosemide 40 mg daily and add potassium for now. Daily BMP (3) Cardiomyopathy: Code(s): I42.9 - Cardiomyopathy, unspecified Status: Acute Assessment and Plan: Worsening cardiomyopathy EF now 20-25% Hopefully will improve with heart rate control/cardioversion (4) Medication monitoring encounter: Code(s): Z51.81 - Encounter for therapeutic drug level monitoring Status: Acute Assessment and Plan: Sotalol initiated Will need periodic check of QT interval with EKGs etc.. Continue telemetry monitoring So far, despite the patient's poor LV function, he seems to be tolerating sotalol. (5) CAD (coronary artery disease): Code(s): I25.10 - Atherosclerotic heart disease of [place] coronary artery without angina pectoris Status: Acute Assessment and Plan: History of CAD, CABG in 2019. No angina or chest pain Continue aspirin, atorvastatin etc.. Subjective Date/time seen: 03/25/22 11:42 Follow-up for atrial flutter of recent onset, new onset CHF and history of CAD. History of STEMI, CABG, Maze procedure, and ligation of the left atrial appendage In June 2020. EF 45% postop. Followed by Dr. Benoit. Date of service 03/25/2022: Started on sotalol and Lovenox . Patient feels well. Breathing is better, slept well. IV Lasix now held. Echo now shows EF 20-25% with akinesis of the inferior wall and severe hypokinesis of the remaining segments, RV enlargement. Telemetry: Atrial fib and flutter, heart rate 90s to 120s. Review of Systems Constitutional: Constitutional: Denies fever(s) Cardiovascular: Cardiovascular: Denies chest pain, Denies pedal edema, Denies lightheadedness and Denies dyspnea Respiratory: Respiratory: Denies chest congestion and Denies dyspnea Gastrointestinal: Gastrointestinal: Denies abdominal pain and Denies hematochezia Musculoskeletal: Musculoskeletal: Reports no additional musculoskeletal complaints Integumentary/Breasts: Skin/Breast: Reports system reviewed and no additional complaints, except as docu Neurologic: Reports system reviewed and no additional complaints, except as documented, Denies behavioral changes and Denies confusion Psychiatric: Psychiatric: Denies behavioral changes and Denies confusion Exam Const: General: cooperative, healthy appearing and comfortable; No confusion Orientation/consciousness: oriented to person, patient oriented x3 and No confusion Other: Up ambulating in his room, no distress Resp: Effort & Inspection: normal respiratory effort Auscultation: diminished lung sounds (Both bases) Cardio: Rate: regular rate and tachycardic Rhythm: regular rhythm and abnormal rhythm irregularly irregular Heart sounds: no murmurs GI: Inspection: normal to inspection GI Palp: No abdominal tenderness Neuro: General: oriented to person, patient oriented x3 and No confusion Extrem: Right lower extremity: no edema Left lower extremity: no edema Psych: Appearance: grossly normal Mental Status: mental sta
--- NOTE | 2022-03-25 12:46 | PC.NURSE ---
Spoke with Dr. Linares regarding the elongating QTc on 12 lead EKG, and the new order to give this AM dose of Sotalol that was held . New order to continue to hold morning dose. I will look into this. Thanks for letting me know. This RN will wait for new orders from Dr. Linares on whether to give Sotalol or continue to hold.
--- NOTE | 2022-03-25 15:15 | ECG_ITS ---
Measurements Intervals [place] Rate: 111 P: [place]: 0 QRS: 120 QRSD: 153 T: -38 QT: 398 QTc: 543 Interpretive Statements ATRIAL FLUTTER/TACHYCARDIA WITH RAPID VENTRICULAR RESPONSE RIGHT AXIS DEVIATION RIGHT BUNDLE BRANCH BLOCK AND POSSIBLE RIGHT VENTRICULAR HYPERTROPHY MINIMAL Q WAVES- INFERIOR LEADS ABNORMAL ECG Electronically Signed On 03-25-2022 19:28:13 CDT by Steve De La Garza D.O.
[2022-03-25] MEDS: SOTALOL HCL 80 MG TABLET PO ×2 (15:32→21:13)
--- NOTE | 2022-03-25 22:46 | ECG_ITS ---
Measurements Intervals [place] Rate: 111 P: -21 ME: 255 QRS: 107 QRSD: 152 T: -21 QT: 407 QTc: 555 Interpretive Statements ATRIAL FLUTTER/TACHYCARDIA WITH RAPID VENTRICULAR RESPONSE RIGHT AXIS DEVIATION RIGHT BUNDLE BRANCH BLOCK BASELINE ARTIFACT- II, III ABNORMAL ECG Electronically Signed On 03-26-2022 6:32:03 CDT by Steve De La Garza D.O.
[2022-03-26] VITALS (41 sets, daily range): BP systolic 76–131; BP diastolic 52–110; PULSE 35–119; RESP 13–26; TEMP 35.8–37.2; O2SAT 16–100
[2022-03-26 05:14] LABS: Basophils Absolute Auto 0.1 K/mm3 (0.0-0.1); Basophils Percent Auto 1.1 % (0.2-1.2); Eosinophils Absolute Auto 0.3 K/mm3 (0-0.3); Eosinophils Percent Auto 4.2 % (0-4.4); Hematocrit 42.1 % (42.0-52.0); Hemoglobin 13.9 g/dL (14.0-18.0); Immature Granulocyte Absolute 0.02 K/mm3 (0.00-0.031); Immature Granulocyte Percent A 0.3 % (0-0.5); Lymphocytes Absolute Auto 1.65 K/mm3 (0.9-3.2); Lymphocytes Percent Auto 26.8 % (18.3-44.2); Mean Corpuscular Hemoglobin 28.8 pg (26-34); Mean Corpuscular Volume 87.2 fl (80-100); Mean Platelet Volume 11.7 fl (7.4-10.4); Monocytes Absolute Auto 0.4 K/mm3 (0.1-0.6); Monocytes Percent Auto 6.8 % (2.6-8.5); Neutrophils Absolute Auto 3.7 K/mm3 (1.3-6.7); Neutrophils Percent Auto 60.8 % (45.5-73.1); Platelet Count Result 166 k/mm3 (150-375); Red Blood Count 4.83 M/mm3 (4.6-6.20); Red Cell Distribution Width 15.2 % (11.5-14.5); White Blood Count 6.2 K/mm3 (4.5-10.0)
[2022-03-26 05:23] LABS: Anion Gap 9 mmol/L (8-16); Blood Urea Nitrogen 27 mg/dL (9-20); Calcium 8.6 mg/dL (8.4-10.2); Carbon Dioxide 25 mmol/L (22-30); Chloride 104 mmol/L (98-107); Estimated CRCL calculation 71 ml/min; Estimated Glomerular Filt Rate > 60; Glucose 91 mg/dL (65-110); Potassium 3.5 mmol/L (3.4-5.0); Sodium 138 mmol/L (137-145)
[2022-03-26 05:29] LABS: Hemoglobin A1C 5.8 % (<5.7)
--- NOTE | 2022-03-26 07:53 | PM.IMPN ---
Progress Note: A&P Assessment and Plan (1) Acute exacerbation of CHF (congestive heart failure): Code(s): I50.9 - Heart failure, unspecified Status: Acute Assessment and Plan: CT chest w/ patch bilateral infiltrates and mild bilateral pulmonary effusions. Improved. -Appreciate recommendations from Cardiology. -Continue diuresis (2) Elevated troponin: Code(s): R77.8 - Other specified abnormalities of plasma proteins Status: Acute Assessment and Plan: Likely due to abnormal heart rhythm plus volume overload. Appreciate recommendations from Cardiology. Will monitor. (3) CAD (coronary artery disease): Code(s): I25.10 - Atherosclerotic heart disease of [place] coronary artery without angina pectoris Status: Acute Assessment and Plan: S/p CABG in 2020. On metoprolol, ASA and statin at home. Will continue. (4) MILKA (acute kidney injury): Code(s): N17.9 - Acute kidney failure, unspecified Status: Acute Assessment and Plan: Suspect cardiorenal syndrome. Sotalol started by Cardiology. Will monitor for now. (5) BMI 29.0-29.9,adult: Code(s): Z68.29 - Body mass index [BMI] 29.0-29.9, adult Status: Acute Assessment and Plan: Hx of CAD s/p CABG and does not have a PCP with new onset congestive heart failure. (6) Atrial flutter by electrocardiogram: Code(s): I48.92 - Unspecified atrial flutter Status: Acute Assessment and Plan: HR 100s-120 prior to cardioversion now with HR 40s. Will continue monitoring in ICU until bradycardia resolves. Subjective Date/time seen: 03/26/22 07:53 Patient denies chest pain, shortness of breath, difficulty breathing, lightheadedness. Patient seen in ICU after cardioversion. Review of Systems Cardiovascular: Cardiovascular: Denies chest pain Respiratory: Respiratory: Denies dyspnea Exam Narrative: GENERAL: NAD, cooperative HEENT: Normocephalic, atraumatic, anicteric, nares clear, oropharynx moist and clear, ok dentition NECK: Supple CV: Tachycardia no murmurs RESP: CTAB, Normal work of breathing. EXTREMITIES: Warm and well perfused, no clubbing, cyanosis. Objective Data Vital Signs Vital Signs: Vital Signs - 24 hr 03/25/22 20:00 03/25/22 21:13 03/25/22 20:00 Temperature 97.6 F Pulse Rate 120 H 121 H 120 H Respiratory Rate Blood Pressure 124/81 Pulse Oximetry 16 L Oxygen Delivery Oxygen Flow Rate 03/25/22 20:00 03/25/22 22:00 03/26/22 00:00 Temperature Pulse Rate 120 H 110 H 101 H Respiratory Rate 18 Blood Pressure Pulse Oximetry 16 L Oxygen Delivery Room Air Oxygen Flow Rate 03/26/22 00:00 03/26/22 00:00 03/26/22 02:00 Temperature 97.6 F Pulse Rate 101 H 118 H 106 H Respiratory Rate 18 15 Blood Pressure 120/90 Pulse Oximetry 16 L 100 Oxygen Delivery Room Air Oxygen Flow Rate 03/26/22 04:00 03/26/22 04:00 03/26/22 04:00 Temperature 97.4 F L Pulse Rate 101 H 101 H 100 Respiratory Rate 15 16 Blood Pressure 98/83 L Pulse Oximetry 100 99 Oxygen Delivery Room Air Oxygen Flow Rate 03/26/22 06:00 03/26/22 08:00 03/26/22 08:50 Temperature 96.4 F L Pulse Rate 93 102 H 102 H Respiratory Rate 14 Blood Pressure 131/91 H Pulse Oximetry 98 Oxygen Delivery Oxygen Flow Rate 03/26/22 09:30 03/26/22 09:38 03/26/22 09:41 Temperature 97.8 F Pulse Rate 114 H 105 H 38 L Respiratory Rate 25 H 26 H 17 Blood Pressure 127/108 H 88/54 L Pulse Oximetry 100 100 100 Oxygen Delivery Nasal Cannula Nasal Cannula Nasal Cannula Oxygen Flow Rate 3 3 3 03/26/22 08:00 03/26/22 08:00 03/26/22 09:21 Temperature Pulse Rate 119 H 117 H Respiratory Rate 26 H Blood Pressure 125/99 H Pulse Oximetry 100 100 Oxygen Delivery Room Air Room Air Oxygen Flow Rate 03/26/22 10:10 03/26/22 09:43 03/26/22 09:35 Temperature Pulse Rate 40 L 38 L
--- NOTE | 2022-03-26 08:00 | ECG_ITS ---
Measurements Intervals [place] Rate: 114 P: -25 NC: 247 QRS: 110 QRSD: 158 T: -30 QT: 401 QTc: 554 Interpretive Statements ATRIAL FLUTTER/TACHYCARDIA WITH RAPID VENTRICULAR RESPONSE LEFT ATRIAL ENLARGEMENT RIGHT BUNDLE BRANCH BLOCK ABNORMAL ECG Electronically Signed On 03-26-2022 22:14:56 CDT by Steve De La Garza D.O.
[2022-03-26] MEDS: SOTALOL HCL 80 MG TABLET PO (08:50)
[2022-03-26] MEDS: ATORVASTATIN 40 MG TABLET PO (08:50)
[2022-03-26] MEDS: ASPIRIN 81 MG CHEWABLE TABLET PO (08:50)
[2022-03-26] MEDS: ENOXAPARIN 120 MG/0.8 ML SYRINGE 105 MG SUB-Q ×2 (08:50→21:13)
[2022-03-26] MEDS: ramipriL 5 MG CAPSULE PO (08:50)
[2022-03-26] MEDS: POTASSIUM CHLORIDE 10 MEQ TABLET.ER PO (08:50)
--- NOTE | 2022-03-26 09:12 | PC.NURSE ---
Pt to micro lab analyst for cardioversion via wheelchair
[2022-03-26] MEDS: SODIUM CHLORIDE 0.9% IV 500 ML 100 ML (09:25)
--- NOTE | 2022-03-26 09:30 | WPDMODSED ---
Moderate Sedation Note-Pt Data Patient Data Diagnosis: Ischemic heart disease with recent onset of congestive heart failure Previous CABG/including amputation of left atrial appendage LV systolic dysfunction Recent onset of atrial fibrillation Present Complaint: Feels well this morning Procedure to be performed/Plan: DC cardioversion Allergies Allergy/AdvReac Type Severity Reaction Status Date / Time No Known Allergies Allergy Mild Verified 03/26/22 09:30 Home Medications Medication Instructions Recorded Confirmed Type aspirin 81 mg capsule 81 mg PO DAILY 03/23/22 03/24/22 History atorvastatin 40 mg tablet 1 tablet PO DAILY 03/23/22 03/24/22 History metoprolol succinate 25 mg 1 tablet PO DAILY 03/23/22 03/24/22 History tablet,extended release 24 hr ramipril 5 mg capsule 1 cap PO DAILY 03/23/22 03/24/22 History Current Medications: Active Medications Aspirin (Aspirin 81 Mg Chewable Tablet) 81 mg PO DAILY@0800 [facility] Last Admin: 03/26/22 08:50 Dose: 81 mg Atorvastatin Calcium (Atorvastatin 40 Mg Tablet) 40 mg PO DAILY [facility] Last Admin: 03/26/22 08:50 Dose: 40 mg Enoxaparin Sodium (Enoxaparin 120 Mg/0.8 Ml Syringe) 105 mg SUB-Q Q12HR [facility] Last Admin: 03/26/22 08:50 Dose: 105 mg Furosemide (Furosemide Inj 40 Mg/4 Ml Vial) 40 mg IV PUSH DAILY [facility] Ondansetron HCl (Ondansetron Inj 4 Mg/2 Ml Vial) 4 mg IV PUSH Q4H PRN PRN Reason: Nausea Potassium Chloride (Potassium Chloride 10 Meq Tablet.Er) 10 meq PO DAILY@0800 [facility] Last Admin: 03/26/22 08:50 Dose: 10 meq Ramipril (Ramipril 5 Mg Capsule) 5 mg PO DAILY [facility] Last Admin: 03/26/22 08:50 Dose: 5 mg Sotalol HCl (Sotalol Hcl 80 Mg Tablet) 80 mg PO Q12HR [facility] Last Admin: 03/26/22 08:50 Dose: 80 mg Sedation/Anesthesia: No previous sedation/anesthesia problems (including family history). [facility] Past Medical History Medical History (Updated 03/25/22 @ 12:19 by Kecia Linares MD) No known problems Family History Family History Other Unknown family medical history Social History Social History Smoking status: Never smoker Alcohol intake: never Substance use: never Substance use type: does not use Gender identity (if verbalized by the patient): Male Spiritual care concerns: No Mod Sed Physical Exam Physical Exam Pre Procedural Exam: Normal: Appearance (Anxious gentleman otherwise no distress), Neck, Throat, Airway, Lungs, Heart Rate, Neuro Exam and Extremities and Variation: Heart Size (PMI difficult to palpate) and Heart Rhythm (Irregularly irregular) Hours since solid foods: 12 Hours since liquid intake: 12 Mallampati Classification: class II Internal Medicine - PN: Obj Da Vital Signs Vital Signs: Vital Signs - 24 hr 03/25/22 09:32 03/25/22 10:00 03/25/22 11:49 Temperature 36.3 C L Pulse Rate 121 H 120 H Respiratory Rate 18 Blood Pressure 119/94 H Pulse Oximetry 99 98 Oxygen Delivery Room Air 03/25/22 12:00 03/25/22 12:00 03/25/22 14:00 Temperature Pulse Rate 121 H 117 H Respiratory Rate Blood Pressure Pulse Oximetry 98 Oxygen Delivery Room Air 03/25/22 15:32 03/25/22 16:00 03/25/22 16:00 Temperature 36.3 C L Pulse Rate 102 H 113 H 101 H Respiratory Rate 18 Blood Pressure 102/68 Pulse Oximetry 99 Oxygen Delivery 03/25/22 16:00 03/25/22 18:00 03/25/22 20:00 Temperature 36.4 C Pulse Rate 121 H 120 H Respiratory Rate Blood Pressure 124/81 Pulse Oximetry 98 16 L Oxygen Delivery Room Air 03/25/22 21:13 03/25/22 20:00 03/25/22 20:00 Temperature Pulse Rate 121 H 120 H 120 H Respiratory Rate 18 Blood Pressure Pulse Oximetry 16 L Oxygen Delivery Room Air 03/25/22 22:00 03/26/22 00:00 03/26/22 00:00 Temperature Pulse Rate 110 H 101 H 101 H Respiratory Rate 18 Blood Pressure Pulse O
--- NOTE | 2022-03-26 09:32 | SUR.OPER ---
8910 Dr. Benoit at bedside discussing procedure with patient.
[2022-03-26] MEDS: ATROPINE SULFATE 1 MG/10 ML SYRINGE (09:42)
--- NOTE | 2022-03-26 09:43 | SUR.OPER ---
0942 0.5 mg atropine given for sinus bradycardia and hypotension post cardioversion. Dr. Benoit at bedside aware of bradycardia and patient deeply sedated. jaw thrust applied. ETCO2 27 RR19. patient snoring on 3 liters nasal cannula
--- NOTE | 2022-03-26 09:50 | WPDCARDPROC ---
Cardiac Cath Procedure Note Date of procedure:: 03/26/22 Performing physician:: Jt Benoit MD Indication:: Atrial fibrillation of recent onset Ischemic heart disease with previous CABG Previous amputation of left atrial appendage Brief clinical history:: This is a 61-year-old patient with history of multivessel coronary disease previous inferior infarction and previous surgical revascularization. He entered the hospital with some decompensated heart failure was found to be in atrial fibrillation which was not present previously. He has significant LV systolic dysfunction compared to previous echocardiogram. In an attempt to restore sinus rhythm DC cardioversion has been scheduled for this morning. The patient was given sotalol for antiarrhythmic therapy prior to this procedure. Procedure Procedure performed:: DC cardiovert Sedation/Medication given:: Propofol in aliquots total dosage 80 mg Estimated blood loss:: None Procedure note:: Patient was brought to the cardiac catheterization lab holding area in the supine position and the postabsorptive state. The defibrillator patches were placed in the AP position and connected to the defibrillator which was synchronized 200 joules. He was then sedated with propofol a total dosage of 80 mg was given. He was counter shocked x1 restoring sinus bradycardia. Immediately after the counter shocked the patient was significantly bradycardic with heart rates in the 30s. He also had a significant asystolic pause at a at the time of conversion. Findings:: As above Conclusion:: Successful uncomplicated DC cardioversion terminating atrial fibrillation restoring sinus bradycardia using 200 joules x1 shock. Jt Benoit MD [facility]
--- NOTE | 2022-03-26 10:09 | ECG_ITS ---
Measurements Intervals [place] Rate: 41 P: [place]: 0 QRS: 97 QRSD: 157 T: 72 QT: 586 QTc: 488 Interpretive Statements SINUS BRADYCARDIA ATRIAL COUPLET RIGHT BUNDLE BRANCH BLOCK ABNORMAL ECG Electronically Signed On 03-26-2022 22:25:55 CDT by Steve De La Garza D.O.
--- NOTE | 2022-03-26 10:51 | SUR.PHASEII ---
1048 Dr. Benoit notified of 3 systolic blood pressures in a row below 90 systolic. No new orders aside from heart healthy diety order.
--- NOTE | 2022-03-26 11:23 | SUR.PHASEII ---
Patient still remaining hypotensive with systolics frequently below 90. Manual check with doppler and Sachi Moreau RN was 84/58. HR still in 30s with junctional beats and occasional sinus beats. Dr. Benoit made aware. He will plan to transfer patient to ICU. No new orders aside from plan to change patient to ICU status.
--- NOTE | 2022-03-26 11:45 | PC.NURSE ---
fabric worker supervisor notified this RN that patient will be going to ICU-11. Bedside report given to DECORATOR HAND at 0340.
--- NOTE | 2022-03-26 11:52 | SUR.PHASEII ---
TODAR sent and report given to ICU NURSE Ramona.
[2022-03-26] MEDS: hetaSTARCH 6%/NACL 500 ML 250 ML IV CONT (12:24)
--- NOTE | 2022-03-26 12:31 | WPDCNINT ---
Assessment and Plan Assessment and plan (1) Bradycardia: Code(s): R00.1 - Bradycardia, unspecified Status: Acute Assessment and Plan: Could be multifactorial, patient got cardioverted which could be a reason for his bradycardia, patient also received 80 mg of propofol, he also received sotalol this morning which could all course bradycardic episodes -patient did receive half an amp of atropine in the cardiac dairy and food laboratory assistant -continue to monitor in the ICU, patient is asymptomatic at this time -if heart rate and blood pressures does not improved, will start low-dose dopamine, will be cautious as patient was just cardioverted from atrial fib/atrial flutter. -discussed with cardiology, agreeable to the above (2) Hypotension: Code(s): I95.9 - Hypotension, unspecified Status: Acute Assessment and Plan: Hypotension could be related to ramipril, propofol and sotalol -will give Hespan, -monitor blood pressures along with urine output -patient does have cardiomyopathy is a will be cautious with IV fluids (3) Acute systolic heart failure: Code(s): I50.21 - Acute systolic (congestive) heart failure Status: Acute Assessment and Plan: New onset acute systolic heart failure, repeat echocardiogram shows EF of 20-25% -this could be related to atrial fib/flutter and a worsening cardiomyopathy -patient's proBNP was 7050 on 03/23/2022, - currently on room air (4) Cardiomyopathy: Code(s): I42.9 - Cardiomyopathy, unspecified Status: Acute Assessment and Plan: As above -hopefully improves with heart rate control (5) Atrial flutter by electrocardiogram: Code(s): I48.92 - Unspecified atrial flutter Status: Acute Assessment and Plan: Patient is on therapeutic Lovenox, will continue (6) CAD (coronary artery disease): Code(s): I25.10 - Atherosclerotic heart disease of [place] coronary artery without angina pectoris Status: Acute Assessment and Plan: History of stay acute inferior [facility] status post CABG in June 2020 along with intraoperative Maze procedure with excision of the left atrial appendage -continue aspirin, statin -hold RESHMA-inhibitor as patient is hypotensive Plan Monitor blood pressure and heart rate Clear liquid diet for now Hespan and 500 IV x1 Additional Plan Discussed with patient updated with his condition and plan of care Code status: Full code Critical care time spent: 44 minutes This dictation may have been done utilizing a voice recognition system. Attempts have been made to correct errors. However, there may be uncorrected grammatical, spelling, and recognition errors present. Due to a high probability of clinically significant, life threatening deterioration, the patient required my highest level of preparedness to intervene emergently and I personally spent this critical care time directly and personally managing the patient. This critical care time included obtaining a history; examining the patient; pulse oximetry; ordering and review of studies; arranging urgent treatment with development of a management plan; evaluation of patient's response to treatment; frequent reassessment; and discussions with other providers. It was exclusive of separately billable procedures and treating other patients and teaching time. Please see Assessment and Plan section and the rest of the note for further information on patient assessment and treatment Floor Runner Consult Note Consult date: 03/26/22 Reason for consult: Bradycardia and hypotension status post cardioversion HPI: Papa Fields is a 61 year old male with past medical coronary artery disease with acute inferior wall infarction June 2020, had a total occlusion of his distal right coronary artery at the bifurcation of PDA and PL, in extensive disease in the left coronary artery, he was transferred to [facility] for surgical revascularization where he underwent a bypass
--- NOTE | 2022-03-26 13:13 | SUR.PHASEII ---
Once patient aroused from sedation at 0950 he voiced no complaints of pain, dizziness, shortness of breath throughout the duration of his time in [employer]OT[employer] IN[employer]OR and phase II recovery. He felt well and tolerated PO water. He did remain bradycardic and hypotensive Dr. Benoit was aware and ordered transfer to ICU. Patient did get winded transferring to stretcher and recovered within 1 minute. O2 sats remained stable on room air.
[2022-03-27] VITALS (15 sets, daily range): BP systolic 105–136; BP diastolic 66–94; PULSE 36–72; RESP 10–21; TEMP 36.4–36.8; O2SAT 92–100
[2022-03-27 04:43] LABS: Basophils Absolute Auto 0.1 K/mm3 (0.0-0.1); Basophils Percent Auto 1.1 % (0.2-1.2); Eosinophils Absolute Auto 0.1 K/mm3 (0-0.3); Eosinophils Percent Auto 1.9 % (0-4.4); Hematocrit 40.4 % (42.0-52.0); Hemoglobin 12.7 g/dL (14.0-18.0); Immature Granulocyte Absolute 0.01 K/mm3 (0.00-0.031); Immature Granulocyte Percent A 0.2 % (0-0.5); Lymphocytes Absolute Auto 1.48 K/mm3 (0.9-3.2); Lymphocytes Percent Auto 27.5 % (18.3-44.2); Mean Corpuscular HGB Conc 31.4 g/dl (32-36); Mean Corpuscular Hemoglobin 28.2 pg (26-34); Mean Corpuscular Volume 89.6 fl (80-100); Mean Platelet Volume 11.6 fl (7.4-10.4); Monocytes Absolute Auto 0.4 K/mm3 (0.1-0.6); Monocytes Percent Auto 7.8 % (2.6-8.5); Neutrophils Absolute Auto 3.3 K/mm3 (1.3-6.7); Neutrophils Percent Auto 61.5 % (45.5-73.1); Platelet Count Result 144 k/mm3 (150-375); Red Blood Count 4.51 M/mm3 (4.6-6.20); Red Cell Distribution Width 15.5 % (11.5-14.5); White Blood Count 5.4 K/mm3 (4.5-10.0)
[2022-03-27 05:03] LABS: Alanine Aminotransferase 31 U/L (6-50); Albumin Level 3.6 g/dL (3.5-5.1); Alkaline Phosphatase 138 U/L (38-126); Anion Gap 7 mmol/L (8-16); Aspartate Amino Transferase 34 U/L (17-59); Bilirubin,Total 2.6 mg/dL (0.2-1.3); Blood Urea Nitrogen 32 mg/dL (9-20); Calcium 8.1 mg/dL (8.4-10.2); Carbon Dioxide 26 mmol/L (22-30); Chloride 104 mmol/L (98-107); Estimated CRCL calculation 64 ml/min; Estimated Glomerular Filt Rate 48; Glucose 91 mg/dL (65-110); Magnesium 1.9 mg/dL (1.6-2.3); Phosphorus 4.5 mg/dL (2.5-4.5); Sodium 137 mmol/L (137-145)
--- NOTE | 2022-03-27 08:00 | ECG_ITS ---
Measurements Intervals [place] Rate: 44 P: [place]: 0 QRS: 224 QRSD: 167 T: -55 QT: 594 QTc: 509 Interpretive Statements ATRIAL FIBRILLATION WITH SLOW VENTRICULAR RESPONSE VENTRICULAR PREMATURE COMPLEXES RIGHT BUNDLE BRANCH BLOCK LEFT POSTERIOR FASCICULAR BLOCK Electronically Signed On 03-27-2022 9:52:54 CDT by Steve De La Garza D.O.
[2022-03-27] MEDS: ASPIRIN 81 MG CHEWABLE TABLET PO (08:32)
[2022-03-27] MEDS: POTASSIUM CHLORIDE 10 MEQ TABLET.ER PO (08:33)
[2022-03-27] MEDS: ATORVASTATIN 40 MG TABLET PO (08:33)
--- NOTE | 2022-03-27 09:06 | PM.IMPN ---
Progress Note: A&P Assessment and Plan (1) Bradycardia: Code(s): R00.1 - Bradycardia, unspecified Status: Acute Assessment and Plan: Bradycardia s/p cardioversion. Not hypotensive at this time and is asymptomatic. Will likely transfer out of ICU today. Will monitor. (2) Acute exacerbation of CHF (congestive heart failure): Code(s): I50.9 - Heart failure, unspecified Status: Acute Assessment and Plan: CT chest w/ patch bilateral infiltrates and mild bilateral pulmonary effusions. EF 20-25% with akinetic inferior posteiro segments, severely hypodynamic LV, RV enlarged. -Appreciate recommendations from Cardiology. -Continue diuresis -No bb due to bradycardia. -On furosemide, RESHMA (3) Elevated troponin: Code(s): R77.8 - Other specified abnormalities of plasma proteins Status: Acute Assessment and Plan: Likely due to abnormal heart rhythm plus volume overload. Appreciate recommendations from Cardiology. Will monitor. (4) CAD (coronary artery disease): Code(s): I25.10 - Atherosclerotic heart disease of [place] coronary artery without angina pectoris Status: Acute Assessment and Plan: S/p CABG in 2020. On metoprolol, ASA and statin at home. Holding bb due to bradycardia. Continue asa. (5) MILKA (acute kidney injury): Code(s): N17.9 - Acute kidney failure, unspecified Status: Acute Assessment and Plan: Suspect cardiorenal syndrome. Improving. (6) BMI 29.0-29.9,adult: Code(s): Z68.29 - Body mass index [BMI] 29.0-29.9, adult Status: Acute Assessment and Plan: Hx of CAD s/p CABG and does not have a PCP with new onset congestive heart failure. (7) Atrial flutter by electrocardiogram: Code(s): I48.92 - Unspecified atrial flutter Status: Acute Assessment and Plan: HR 100s-120 prior to cardioversion now with HR 40s in sinus. Will monitor. Subjective Date/time seen: 03/27/22 09:06 Patient denies chest pain, shortness of breath, lightheadedness, dizziness. Says he has been walking to the bathroom without issue. Review of Systems Cardiovascular: Cardiovascular: Denies chest pain, Denies lightheadedness and Reports palpitations Respiratory: Respiratory: Denies dyspnea and Denies dyspnea on exertion Exam Narrative: GENERAL: NAD, cooperative HEENT: Normocephalic, atraumatic, anicteric, nares clear, oropharynx moist and clear, ok dentition NECK: Supple CV: bradycardia no murmurs RESP: CTAB, Normal work of breathing. EXTREMITIES: Warm and well perfused, no clubbing, cyanosis. Objective Data Vital Signs Vital Signs: Vital Signs - 24 hr 03/26/22 09:30 03/26/22 09:38 03/26/22 09:41 Temperature 97.8 F Pulse Rate 114 H 105 H 38 L Respiratory Rate 25 H 26 H 17 Blood Pressure 127/108 H 88/54 L Pulse Oximetry 100 100 100 Oxygen Delivery Nasal Cannula Nasal Cannula Nasal Cannula Oxygen Flow Rate 3 3 3 03/26/22 09:21 03/26/22 10:10 03/26/22 09:43 Temperature Pulse Rate 117 H 40 L 38 L Respiratory Rate 26 H 21 H 20 Blood Pressure 125/99 H 98/64 L 87/55 L Pulse Oximetry 100 100 100 Oxygen Delivery Room Air Nasal Cannula Nasal Cannula Oxygen Flow Rate 3 3 03/26/22 09:35 03/26/22 09:45 03/26/22 09:50 Temperature Pulse Rate 38 L 39 L Respiratory Rate 23 H 20 Blood Pressure 124/110 H 78/52 L 76/57 L Pulse Oximetry 100 100 100 Oxygen Delivery Nasal Cannula Nasal Cannula Nasal Cannula Oxygen Flow Rate 3 3 3 03/26/22 09:55 03/26/22 10:00 03/26/22 10:05 Temperature Pulse Rate 39 L 41 L 42 L Respiratory Rate 22 H 21 H 21 H Blood Pressure 77/61 L 87/69 L 90/73 L Pulse Oximetry 99 99 100 Oxygen Delivery Nasal Cannula Nasal Cannula Nasal Cannula Oxygen Flow Rate 3 3 3 03/26/22 10:15 03/26/22 10:20 03/26/22 10:25 Temperature Pulse Rate 40 L 37 L 42 L Respiratory Rate 22 H 17 23 H Blood Pressure 92/70 L 94/60 L 80/70 L Pul
--- NOTE | 2022-03-27 09:33 | WPDINTPN ---
Progress Note: A&P Assessment and Plan (1) Bradycardia: Code(s): R00.1 - Bradycardia, unspecified Status: Acute Assessment and Plan: Could be multifactorial, patient got cardioverted which could be a reason for his bradycardia, patient also received 80 mg of propofol, he also received sotalol this morning which could all course bradycardic episodes -patient did receive half an amp of atropine in the [employer] on 03/26 -patient has been asymptomatic, heart rates do get up to the 50s and 60s at times -if heart rate and blood pressures does not improved, will start low-dose dopamine, will be cautious as patient was just cardioverted from atrial fib/atrial flutter. -will discuss with Cardiology (2) Hypotension: Code(s): I95.9 - Hypotension, unspecified Status: Acute Assessment and Plan: Hypotension could be related to ramipril, propofol and sotalol -patient was given his pain on 03/26 -blood pressures have improved -monitor blood pressures along with urine output (3) Acute systolic heart failure: Code(s): I50.21 - Acute systolic (congestive) heart failure Status: Acute Assessment and Plan: New onset acute systolic heart failure, repeat echocardiogram shows EF of 20-25% -this could be related to atrial fib/flutter and a worsening cardiomyopathy -patient's proBNP was 7050 on 03/23/2022, - currently on room air -03/27 chest x-ray showed cardiomegaly but without pulmonary edema, persistent small bilateral pleural effusions, airspace opacities in the left mid and lower lung zones which could represent atelectasis or pneumonia -holding diuretics as patient has been hypotensive (4) Cardiomyopathy: Code(s): I42.9 - Cardiomyopathy, unspecified Status: Acute Assessment and Plan: As above -hopefully improves with heart rate control (5) Atrial flutter by electrocardiogram: Code(s): I48.92 - Unspecified atrial flutter Status: Acute Assessment and Plan: Patient is on therapeutic Lovenox, will continue (6) CAD (coronary artery disease): Code(s): I25.10 - Atherosclerotic heart disease of [place] coronary artery without angina pectoris Status: Acute Assessment and Plan: History of acute inferior [place] status post CABG in June 2020 along with intraoperative Maze procedure with excision of the left atrial appendage -continue aspirin, statin -hold RESHMA-inhibitor as patient has been hypotensive Plan Blood pressure is much improved Heart rate also improving Continue to monitor in the hospital Additional Plan Discussed with patient updated with his condition and plan of care Code status: Full code Critical care time spent: 34 minutes This dictation may have been done utilizing a voice recognition system. Attempts have been made to correct errors. However, there may be uncorrected grammatical, spelling, and recognition errors present. Due to a high probability of clinically significant, life threatening deterioration, the patient required my highest level of preparedness to intervene emergently and I personally spent this critical care time directly and personally managing the patient. This critical care time included obtaining a history; examining the patient; pulse oximetry; ordering and review of studies; arranging urgent treatment with development of a management plan; evaluation of patient's response to treatment; frequent reassessment; and discussions with other providers. It was exclusive of separately billable procedures and treating other patients and teaching time. Please see Assessment and Plan section and the rest of the note for further information on patient assessment and treatment Subjective Date/time seen: 03/27/22 09:33 Interval history: Reason for consult: Bradycardia and hypotension status post cardioversion 03/27/2022: Patient seen and examined the ICU, remains bradycardic in the 30s to 50s range, blood pressu
[2022-03-27] MEDS: ENOXAPARIN 120 MG/0.8 ML SYRINGE 105 MG SUB-Q ×2 (10:51→20:00)
--- NOTE | 2022-03-27 14:12 | P.PNCA_ITS ---
Progress Note: A&P Assessment and Plan (1) Persistent atrial fibrillation: Code(s): I48.19 - Other persistent atrial fibrillation Status: Acute Assessment and Plan: Patient presents with persistent atrial fibrillation and intermittent atrial flutter, often RVR. * Started on sotalol 03/24/2022 * Anticoagulated with Lovenox at this time, future anticoagulation per Dr. Benoit * DCCV yesterday, successful sabianism of sinus rhythm. * Developed bradycardia any hypotension, was given atropine in the [employer] * Transferred to ICU for observation. * Remains bradycardic in the 40's generally, asymptomatic and BP stable * OK to transfer to IMU status * Continue telemetry (2) Acute systolic heart failure: Code(s): I50.21 - Acute systolic (congestive) heart failure Status: Acute Assessment and Plan: Patient presents with acute systolic heart failure * Due to persistent AFib/flutter RVR and worsening of his cardiomyopathy. * Feels much better after diuresis and sabianism of sinus rhythm * Will shift to p.o. furosemide tomorrow in antitipation of discharge * Check BMP tomorrow (3) Cardiomyopathy: Code(s): I42.9 - Cardiomyopathy, unspecified Status: Acute Assessment and Plan: Worsening cardiomyopathy * EF now 20-25% * Hopefully will improve with heart rate control/cardioversion (4) Medication monitoring encounter: Code(s): Z51.81 - Encounter for therapeutic drug level monitoring Status: Acute Assessment and Plan: Sotalol has been discontinued because of bradycardia. (5) CAD (coronary artery disease): Code(s): I25.10 - Atherosclerotic heart disease of [place] coronary artery without angina pectoris Status: Acute Assessment and Plan: History of CAD, CABG in 2019. * No angina or chest pain * Continue aspirin, atorvastatin etc.. Subjective Date/time seen: 03/27/22 14:12 Cardiology follow up for atrial fibrillation S/p DCCV yesterday. Developed bradycardia and hypotension and was transferrred to the ICU. Did not require any dopamine support or atropine overnight. HR has generally been in the 40's today, BP stable. HR does increase to 60's-70's with ambulation. Review of Systems Constitutional: Constitutional: Reports no additional constitutional complaints and Denies fever(s) Eyes: Eyes: Reports no additional eye complaints ENT: Reports system reviewed and no additional complaints, except as documented Cardiovascular: Cardiovascular: Reports as per HPI, Denies chest pain, Denies pedal edema, Denies lightheadedness and Denies dyspnea Respiratory: Respiratory: Denies chest congestion and Denies dyspnea Gastrointestinal: Gastrointestinal: Reports no additional gastrointestinal complaints, Denies abdominal pain and Denies hematochezia Musculoskeletal: Musculoskeletal: Reports no additional musculoskeletal complaints Integumentary/Breasts: Skin/Breast: Reports system reviewed and no additional complaints, except as docu Neurologic: Reports system reviewed and no additional complaints, except as documented, Denies behavioral changes and Denies confusion Psychiatric: Psychiatric: Denies behavioral changes and Denies confusion Endocrine: Endocrine: Reports no additional endocrine complaints Hematologic/Lymphatic: Hematologic/Lymphatic: Reports no additional hematologic/lymphatic complaints Allergic/Immunologic: Allergic/Immunologic: Reports no additional allergic/immunologic complaints
--- NOTE | 2022-03-27 14:12 | PM.PNCARD ---
Progress Note: A&P Assessment and Plan (1) Persistent atrial fibrillation: Code(s): I48.19 - Other persistent atrial fibrillation Status: Acute Assessment and Plan: Patient presents with persistent atrial fibrillation and intermittent atrial flutter, often RVR. Started on sotalol 03/24/2022 Anticoagulated with Lovenox at this time, future anticoagulation per Dr. Benoit DCCV yesterday, successful zoroastrianism of sinus rhythm. Developed bradycardia any hypotension, was given atropine in the [employer] Transferred to ICU for observation. Remains bradycardic in the 40's generally, asymptomatic and BP stable OK to transfer to IMU status Continue telemetry (2) Acute systolic heart failure: Code(s): I50.21 - Acute systolic (congestive) heart failure Status: Acute Assessment and Plan: Patient presents with acute systolic heart failure Due to persistent AFib/flutter RVR and worsening of his cardiomyopathy. Feels much better after diuresis and zoroastrianism of sinus rhythm Will shift to p.o. furosemide tomorrow in antitipation of discharge Check BMP tomorrow (3) Cardiomyopathy: Code(s): I42.9 - Cardiomyopathy, unspecified Status: Acute Assessment and Plan: Worsening cardiomyopathy EF now 20-25% Hopefully will improve with heart rate control/cardioversion (4) Medication monitoring encounter: Code(s): Z51.81 - Encounter for therapeutic drug level monitoring Status: Acute Assessment and Plan: Sotalol has been discontinued because of bradycardia. (5) CAD (coronary artery disease): Code(s): I25.10 - Atherosclerotic heart disease of [place] coronary artery without angina pectoris Status: Acute Assessment and Plan: History of CAD, CABG in 2019. No angina or chest pain Continue aspirin, atorvastatin etc.. Subjective Date/time seen: 03/27/22 14:12 Cardiology follow up for atrial fibrillation S/p DCCV yesterday. Developed bradycardia and hypotension and was transferrred to the ICU. Did not require any dopamine support or atropine overnight. HR has generally been in the 40's today, BP stable. HR does increase to 60's-70's with ambulation. Review of Systems Constitutional: Constitutional: Reports no additional constitutional complaints and Denies fever(s) Eyes: Eyes: Reports no additional eye complaints ENT: Reports system reviewed and no additional complaints, except as documented Cardiovascular: Cardiovascular: Reports as per HPI, Denies chest pain, Denies pedal edema, Denies lightheadedness and Denies dyspnea Respiratory: Respiratory: Denies chest congestion and Denies dyspnea Gastrointestinal: Gastrointestinal: Reports no additional gastrointestinal complaints, Denies abdominal pain and Denies hematochezia Musculoskeletal: Musculoskeletal: Reports no additional musculoskeletal complaints Integumentary/Breasts: Skin/Breast: Reports system reviewed and no additional complaints, except as docu Neurologic: Reports system reviewed and no additional complaints, except as documented, Denies behavioral changes and Denies confusion Psychiatric: Psychiatric: Denies behavioral changes and Denies confusion Endocrine: Endocrine: Reports no additional endocrine complaints Hematologic/Lymphatic: Hematologic/Lymphatic: Reports no additional hematologic/lymphatic complaints Allergic/Immunologic: Allergic/Immunologic: Reports no additional allergic/immunologic complaints Exam Const: General: cooperative, healthy appearing, comfortable and no acute distress; No confusion Orientation/consciousness: oriented to person, patient oriented x3 and No confusion Other: Up ambulating in his room, no distress HENMT: Mouth: Yes moist mucous membranes Eyes: Sclera: sclerae normal Pupils: Equal, round and reactive pupils present Neck: Neck: supple and no JVD Other: Carotid pulses are intact bilaterally and without any bruits Resp:
[2022-03-27 15:50] LABS: Anion Gap 8 mmol/L (8-16); Blood Urea Nitrogen 32 mg/dL (9-20); Calcium 8.6 mg/dL (8.4-10.2); Carbon Dioxide 25 mmol/L (22-30); Chloride 105 mmol/L (98-107); Estimated CRCL calculation 72 ml/min; Estimated Glomerular Filt Rate 52; Glucose 101 mg/dL (65-110); Magnesium 2.2 mg/dL (1.6-2.3); Potassium 3.3 mmol/L (3.4-5.0); Sodium 138 mmol/L (137-145)
--- NOTE | 2022-03-27 16:15 | PC.NURSE ---
This patient, Papa Fields, was transferred to [[id number]] on 03/27/22 at 1615. Personal belongings sent with patient. Report given to [Ilene CHILDS]. Appropriate documentation sent with patient.
--- NOTE | 2022-03-27 16:18 | PC.NURSE ---
This patient, Papa Fields, was received from [ [id number]] on 03/27/22 at 1618. Patient/family oriented to unit policies and routines. Report received from AMADEO Romano @ [phone]
[2022-03-27] MEDS: POTASSIUM CHLORIDE 20 MEQ TABLET 40 MEQ PO (17:07)
[2022-03-28] VITALS (13 sets, daily range): BP systolic 101–125; BP diastolic 56–81; PULSE 37–75; RESP 16–20; TEMP 36.1–36.6; O2SAT 97–100
[2022-03-28 05:44] LABS: Potassium 3.8 mmol/L (3.4-5.0)
[2022-03-28] MEDS: ENOXAPARIN 120 MG/0.8 ML SYRINGE 105 MG SUB-Q (08:24)
[2022-03-28] MEDS: POTASSIUM CHLORIDE 10 MEQ TABLET.ER PO (08:25)
[2022-03-28] MEDS: ATORVASTATIN 40 MG TABLET PO (08:25)
[2022-03-28] MEDS: ASPIRIN 81 MG CHEWABLE TABLET PO (08:37)
--- NOTE | 2022-03-28 09:08 | PM.IMPN ---
Progress Note: A&P Assessment and Plan (1) Bradycardia: Code(s): R00.1 - Bradycardia, unspecified Status: Acute Assessment and Plan: Bradycardia s/p cardioversion. Not hypotensive at this time and is asymptomatic. On monitor in IMU patient is ranging 30s-60s. Documented vitals with HR still in 40s. Will monitor. (2) Acute exacerbation of CHF (congestive heart failure): Code(s): I50.9 - Heart failure, unspecified Status: Acute Assessment and Plan: CT chest w/ patch bilateral infiltrates and mild bilateral pulmonary effusions. EF 20-25% with akinetic inferior posteiro segments, severely hypodynamic LV, RV enlarged. -Appreciate recommendations from Cardiology. -Continue diuresis -No bb due to bradycardia. -Started on entresto today with plan for possible discharge tomorrow if BP tolerates entresto (3) Elevated troponin: Code(s): R77.8 - Other specified abnormalities of plasma proteins Status: Acute Assessment and Plan: This was likely due to the abnormal heart rhythm and tachycardia. This has resolved. (4) CAD (coronary artery disease): Code(s): I25.10 - Atherosclerotic heart disease of [place] coronary artery without angina pectoris Status: Acute Assessment and Plan: S/p CABG in 2020. On metoprolol, ASA and statin at home. Holding bb due to bradycardia. Continue asa. (5) MILKA (acute kidney injury): Code(s): N17.9 - Acute kidney failure, unspecified Status: Acute Assessment and Plan: Suspect cardiorenal syndrome. Creatinine improved now that patient is in sinus. Resolved. (6) BMI 29.0-29.9,adult: Code(s): Z68.29 - Body mass index [BMI] 29.0-29.9, adult Status: Acute Assessment and Plan: Hx of CAD s/p CABG and does not have a PCP with new onset congestive heart failure. (7) Atrial flutter by electrocardiogram: Code(s): I48.92 - Unspecified atrial flutter Status: Acute Assessment and Plan: HR 100s-120 prior to cardioversion now with HR 40s in sinus. Will monitor. Subjective Date/time seen: 03/28/22 09:08 Patient denies lightheadedness, chest pain, shortness of breath, difficulty breathing. Exam Narrative: GENERAL: NAD, cooperative HEENT: Normocephalic, atraumatic, anicteric, nares clear, oropharynx moist and clear, ok dentition NECK: Supple CV: bradycardia no murmurs RESP: CTAB, Normal work of breathing. EXTREMITIES: Warm and well perfused, no clubbing, cyanosis. Objective Data Vital Signs Vital Signs: Vital Signs - 24 hr 03/27/22 10:00 03/27/22 10:00 03/27/22 12:00 Temperature Pulse Rate 41 L 41 L 41 L Respiratory Rate 17 Blood Pressure 132/85 Pulse Oximetry 96 Oxygen Delivery 03/27/22 12:00 03/27/22 12:00 03/27/22 14:00 Temperature 98.2 F Pulse Rate 38 L 39 L Respiratory Rate 10 L Blood Pressure 110/74 Pulse Oximetry 92 96 Oxygen Delivery Room Air 03/27/22 15:42 03/27/22 16:00 03/27/22 16:00 Temperature 98.2 F Pulse Rate 39 L 42 L Respiratory Rate 13 Blood Pressure 131/74 Pulse Oximetry 96 95 Oxygen Delivery Room Air 03/27/22 16:56 03/27/22 18:00 03/27/22 20:00 Temperature 97.5 F L 97.6 F Pulse Rate 45 L 72 64 Respiratory Rate 20 15 Blood Pressure 126/83 118/66 Pulse Oximetry 99 98 Oxygen Delivery 03/27/22 20:00 03/27/22 20:00 03/27/22 22:00 Temperature Pulse Rate 41 L 64 72 Respiratory Rate 15 Blood Pressure Pulse Oximetry 98 Oxygen Delivery Room Air 03/27/22 23:41 03/28/22 00:00 03/28/22 00:00 Temperature 97.6 F Pulse Rate 40 L 38 L 40 L Respiratory Rate 18 18 Blood Pressure 136/85 Pulse Oximetry 100 100 Oxygen Delivery Room Air 03/28/22 02:00 03/28/22 04:00 03/28/22 04:00 Temperature Pulse Rate 42 L 37 L 42 L Respiratory Rate 18 Blood Pressure Pulse Oximetry 100 Oxygen Delivery Room Air 03/28/22 04:00
[2022-03-28 09:30] LABS: Anion Gap 7 mmol/L (8-16); Blood Urea Nitrogen 28 mg/dL (9-20); Calcium 8.8 mg/dL (8.4-10.2); Carbon Dioxide 26 mmol/L (22-30); Chloride 106 mmol/L (98-107); Estimated CRCL calculation 74 ml/min; Estimated Glomerular Filt Rate 57; Glucose 84 mg/dL (65-110); Potassium 3.8 mmol/L (3.4-5.0); Sodium 139 mmol/L (137-145)
--- NOTE | 2022-03-28 13:52 | PM.PNCARD ---
Progress Note: A&P Assessment and Plan (1) Cardiomyopathy: Code(s): I42.9 - Cardiomyopathy, unspecified Status: Acute (2) Bradycardia: Code(s): R00.1 - Bradycardia, unspecified Status: Acute Plan 61-year-old man with: Ischemic heart disease recent development of atrial fibrillation and decompensated heart failure. He is much better clinically with amish of sinus rhythm. He hemodynamically will not tolerate beta-goran at this time. Sotalol obviously has been stopped. He had been on ramipril and has not had any of that for couple of days because of the hypotension. I will take the opportunity to start him on some Entresto today. Will discontinue Lovenox and start apixaban for oral anticoagulation. Will anticipate discharge tomorrow as long as he gets a couple of doses of Entresto and is not having difficulty with hypotension. The patient lives alone and I do not feel comfortable starting this agent and then sending him home immediately with no one else in his resident. Jt Benoit MD [facility] Subjective Date/time seen: Date of service: 03/28/22 13:52 Interval history: Follow-up visit in this 61-year-old man with: Ischemic heart disease and LV dysfunction and recent development of atrial fibrillation. Patient was anticoagulated and started on sotalol. He was cardioverted to sinus rhythm/sinus bradycardia 2 days ago. He was very bradycardic and hypotensive following cardioversion. Sotalol and ramipril have been discontinued. Over the last 48 hours his blood pressure has responded and is back to normal. He still is in sinus bradycardia with heart rate between 45 and low 50s. Feels well he is up ambulating on the floors and does not have any complaints of any kind. Exam Const: General: cooperative, healthy appearing, comfortable and no acute distress; No confusion Orientation/consciousness: oriented to person, patient oriented x3 and No confusion Other: Up ambulating in his room, no distress HENMT: Mouth: Yes moist mucous membranes Eyes: Sclera: sclerae normal Pupils: Equal, round and reactive pupils present Neck: Neck: supple and no JVD Other: Carotid pulses are intact bilaterally and without any bruits Resp: Effort & Inspection: normal respiratory effort Auscultation: clear to auscultation bilaterally and diminished lung sounds (Both bases) Other: No significant rales reduced breath sounds at the left base Cardio: Rate: regular rate and tachycardic Rhythm: regular rhythm and abnormal rhythm irregularly irregular Heart sounds: no murmurs Other: No significant murmur no gallop GI: Inspection: normal to inspection Auscultation: normal bowel sounds Skin: General skin exam: normal color Neuro: General: oriented to person, patient oriented x3 and No confusion Cranial nerves: Yes Equal, round and reactive pupils present Other: Normal cognition Extrem: Right lower extremity: no edema Left lower extremity: no edema Other: Good pulses, no edema Psych: Appearance: grossly normal Mental Status: mental status grossly normal Objective Data Vital Signs Vital Signs: Vital Signs - 24 hr 03/27/22 14:00 03/27/22 15:42 03/27/22 16:00 Temperature 36.8 C Pulse Rate 39 L 39 L Respiratory Rate 13 Blood Pressure 131/74 Pulse Oximetry 96 95 Oxygen Delivery Room Air 03/27/22 16:00 03/27/22 16:56 03/27/22 18:00 Temperature 36.4 C L Pulse Rate 42 L 45 L 72 Respiratory Rate 20 Blood Pressure 126/83 Pulse Oximetry 99 Oxygen Delivery 03/27/22 20:00 03/27/22 20:00 03/27/22 20:00 Temperature 36.4 C Pulse Rate 64 41 L 64 Respiratory Rate 15 15 Blood Pressure 118/66 Pulse Oximetry 98 98 Oxygen Delivery Room Air 03/27/22 22:00 03/27/22 23:41 03/28/22 00:00 Temperature 36.4 C Pulse Rate 72 40 L 38 L Respiratory Rate 18 Blood Pressure 136/85 Pulse Oximetry 100 Oxygen Delivery 03/28/22 00:00 03/28/22 02:
[2022-03-28] MEDS: APIXABAN 5 MG TABLET PO (20:05)
[2022-03-28] MEDS: SACUBITRIL/VALSARTAN 24-26 MG TABLET 1 TAB PO (20:05)
[2022-03-29] VITALS (7 sets, daily range): BP systolic 122–138; BP diastolic 56–90; PULSE 39–46; RESP 15–24; TEMP 36.4–36.6; O2SAT 99–100
[2022-03-29 04:56] LABS: Anion Gap 6 mmol/L (8-16); Blood Urea Nitrogen 22 mg/dL (9-20); Calcium 8.1 mg/dL (8.4-10.2); Carbon Dioxide 27 mmol/L (22-30); Chloride 106 mmol/L (98-107); Estimated CRCL calculation 81 ml/min; Estimated Glomerular Filt Rate > 60; Glucose 88 mg/dL (65-110); Sodium 139 mmol/L (137-145)
[2022-03-29] MEDS: POTASSIUM CHLORIDE 10 MEQ TABLET.ER PO (08:14)
[2022-03-29] MEDS: ASPIRIN 81 MG CHEWABLE TABLET PO (08:14)
[2022-03-29] MEDS: ATORVASTATIN 40 MG TABLET PO (08:14)
[2022-03-29] MEDS: SACUBITRIL/VALSARTAN 24-26 MG TABLET 1 TAB PO (08:14)
[2022-03-29] MEDS: APIXABAN 5 MG TABLET PO (08:14)
--- NOTE | 2022-03-29 09:23 | PM.DS ---
DS: Admitting Diagnosis Discharge Date 03/29/2022 Admitting Diagnosis Acute exacerbation of systolic congestive heart DS: Discharge Diagnosis Discharge Diagnosis (1) Bradycardia: Code(s): R00.1 - Bradycardia, unspecified Status: Acute Assessment and Plan: Bradycardia s/p cardioversion. Not hypotensive at this time and is asymptomatic. On monitor in IMU patient is ranging 30s-60s. Documented vitals with HR still in 40s. Will monitor. (2) Acute exacerbation of CHF (congestive heart failure): Code(s): I50.9 - Heart failure, unspecified Status: Acute Assessment and Plan: CT chest w/ patch bilateral infiltrates and mild bilateral pulmonary effusions. EF 20-25% with akinetic inferior posteiro segments, severely hypodynamic LV, RV enlarged. -Appreciate recommendations from Cardiology. -Continue diuresis -No bb due to bradycardia. -Started on entresto today with plan for possible discharge tomorrow if BP tolerates entresto (3) Elevated troponin: Code(s): R77.8 - Other specified abnormalities of plasma proteins Status: Acute Assessment and Plan: This was likely due to the abnormal heart rhythm and tachycardia. This has resolved. (4) CAD (coronary artery disease): Code(s): I25.10 - Atherosclerotic heart disease of [place] coronary artery without angina pectoris Status: Acute Assessment and Plan: S/p CABG in 2020. On metoprolol, ASA and statin at home. Holding bb due to bradycardia. Continue asa. (5) MILKA (acute kidney injury): Code(s): N17.9 - Acute kidney failure, unspecified Status: Acute Assessment and Plan: Suspect cardiorenal syndrome. Creatinine improved now that patient is in sinus. Resolved. (6) BMI 29.0-29.9,adult: Code(s): Z68.29 - Body mass index [BMI] 29.0-29.9, adult Status: Acute Assessment and Plan: Hx of CAD s/p CABG and does not have a PCP with new onset congestive heart failure. (7) Atrial flutter by electrocardiogram: Code(s): I48.92 - Unspecified atrial flutter Status: Acute Assessment and Plan: HR 100s-120 prior to cardioversion now with HR 40s in sinus. Will monitor. DS: Summary Hospital Course Reason for hospitalization: 61 years old male was admitted complains of a shortness of breath. Patient was found to have atrial flutter with rapid ventricular response and systolic congestive heart failure. Patient was given diuretic and cardiology was consulted. During the stay in the hospital patient did not have any complicating. Today patient is feeling better patient discharged home in stable condition. Hospital Course: 61 years old male was admitted complains of a shortness of breath. Patient was found to have atrial flutter with rapid ventricular response and systolic congestive heart failure. Patient was given diuretic and cardiology was consulted. During the stay in the hospital patient did not have any complicating. Today patient is feeling better patient discharged home in stable condition. Status at Discharge Cognitive/behavioral status at discharge: Stable Time Spent with Patient Time attestation: Total time spent providing and/or coordinating discharge services: less than30 minutes Exam Narrative: GENERAL: NAD, cooperative HEENT: Normocephalic, atraumatic, anicteric, nares clear, oropharynx moist and clear, ok dentition NECK: Supple CV: bradycardia no murmurs RESP: CTAB, Normal work of breathing. EXTREMITIES: Warm and well perfused, no clubbing, cyanosis. Const: General: comfortable (Well-appearing), no acute distress, well developed, alert and awake Nutritional Appearance: average body habitus Orientation/consciousness: patient oriented x3 HENMT: Head: normal to inspection, normocephalic and atraumatic Ears: hearing grossly normal bilaterally Face and sinus: normal facial exam Eyes: General: appearance norm
== END 2022-03-29 11:06 | disposition home or self-care (01) | DRG 194 ==
LOC: ANHED 22:54 → ANHIMU 03-24 01:56 → ANHICU 04-01 13:24 → ANHIMU 04-01 13:24
PROVIDERS: Family Medicine; Internal Medicine; Internal Medicine Cardiovascular Disease; Specialist; Admitting Provider Internal Medicine; Emergency Provider Emergency Medicine; Visit Provider Internal Medicine
PROC: 5A2204Z Restoration of Cardiac Rhythm, Single (ICD-10-PCS; principal; 2022-03-26 09:30)
DX: I11.0 Hypertensive heart disease with heart failure (principal); I48.19 Other persistent atrial fibrillation; I50.21 Acute systolic (congestive) heart failure; R77.8 Other specified abnormalities of plasma proteins; R00.1 Bradycardia, unspecified; I95.9 Hypotension, unspecified; I25.10 Atherosclerotic heart disease of native coronary artery without angina pectoris; N17.9 Acute kidney failure, unspecified; I48.92 Unspecified atrial flutter; I25.9 Chronic ischemic heart disease, unspecified; I42.9 Cardiomyopathy, unspecified; E78.5 Hyperlipidemia, unspecified; E66.9 Obesity, unspecified; Z68.29 Body mass index [BMI] 29.0-29.9, adult; Z20.822 Contact with and (suspected) exposure to COVID-19; Z79.82 Long term (current) use of aspirin; Z79.899 Other long term (current) drug therapy; Z95.1 Presence of aortocoronary bypass graft
CPT/HCPCS: 36415; 70360; 71045; 71275; 80048; 80053; 83036; 83735; 83880; 84100; 84132; 84484; 85025; 85610; 85730; 87502; 92960; 93005; 93306; 96374; 96376; 99285; A9270; C8929; C9803; G0378; G0379; J0461; J1650; J1940; J2704; J7040; Q9957; Q9967; U0003; U0005

== ENCOUNTER 2022-05-31 20:24 | Emergency (ER) | payer OTHER, SELFPAY ==
[2022-05-31 20:26] VITALS: BP 121/66; PULSE 53; RESP 17; TEMP 36.4; O2SAT 100
[2022-05-31 21:04] LABS: Basophils Absolute Auto 0.1 K/mm3 (0.0-0.1); Basophils Percent Auto 0.9 % (0.2-1.2); Eosinophils Absolute Auto 0.2 K/mm3 (0-0.3); Eosinophils Percent Auto 2.5 % (0-4.4); Hematocrit 43.7 % (42.0-52.0); Hemoglobin 14.7 g/dL (14.0-18.0); Immature Granulocyte Absolute 0.01 K/mm3 (0.00-0.031); Immature Granulocyte Percent A 0.1 % (0-0.5); Lymphocytes Absolute Auto 1.07 K/mm3 (0.9-3.2); Lymphocytes Percent Auto 15.8 % (18.3-44.2); Mean Corpuscular HGB Conc 33.6 g/dl (32-36); Mean Corpuscular Hemoglobin 29.5 pg (26-34); Mean Corpuscular Volume 87.8 fl (80-100); Mean Platelet Volume 11.2 fl (7.4-10.4); Monocytes Absolute Auto 0.4 K/mm3 (0.1-0.6); Monocytes Percent Auto 5.6 % (2.6-8.5); Neutrophils Absolute Auto 5.1 K/mm3 (1.3-6.7); Neutrophils Percent Auto 75.1 % (45.5-73.1); Platelet Count Result 150 k/mm3 (150-375); Red Blood Count 4.98 M/mm3 (4.6-6.20); Red Cell Distribution Width 14.1 % (11.5-14.5); White Blood Count 6.8 K/mm3 (4.5-10.0)
[2022-05-31 21:16] LABS: Alanine Aminotransferase 51 U/L (6-50); Albumin Level 4.5 g/dL (3.5-5.1); Alkaline Phosphatase 109 U/L (38-126); Anion Gap 10 mmol/L (8-16); Aspartate Amino Transferase 43 U/L (17-59); Bilirubin,Total 2.1 mg/dL (0.2-1.3); Blood Urea Nitrogen 23 mg/dL (9-20); Calcium 9.4 mg/dL (8.4-10.2); Carbon Dioxide 27 mmol/L (22-30); Chloride 103 mmol/L (98-107); Estimated CRCL calculation 61 ml/min; Estimated Glomerular Filt Rate 52; Glucose 107 mg/dL (65-110); Lipase 183 U/L (23-300); Potassium 4.2 mmol/L (3.4-5.0); Sodium 140 mmol/L (137-145)
[2022-05-31] MEDS: GLUCAGON FOR INJ 1 MG VIAL IV PUSH (23:36)
[2022-05-31] MEDS: NITROGLYCERIN SL 0.4 MG TABLET SUBLINGUAL (23:39)
--- NOTE | 2022-05-31 23:54 | ED.GENADULT ---
HPI - General Adult General Chief complaint: Nausea/Vomiting/Diarrhea Stated complaint: vomiting Time Seen by Provider: 05/31/22 22:24 History of Present Illness HPI narrative: Patient 61-year-old gentleman who presents the emergency department with chief complaint of vomiting. The patient reports that he ate some pork steak and Iranian fries and afterwards started having a feeling as though there was fullness in his neck and then vomited several times. The patient states that that was just saliva that he vomited up and white foam. The patient denies abdominal pain states that the area that feels as though the fluid builds up and is in his neck patient reports he has prior history of a outpouching in his neck. The patient states that he has not required endoscopy for esophageal food impactions in the past. Related Data Home Medications Medication Instructions Recorded Confirmed atorvastatin 40 mg tablet 1 tablet PO DAILY 03/23/22 03/24/22 metoprolol succinate 25 mg 25 mg PO DAILY 05/13/22 05/13/22 tablet,extended release 24 hr Allergies Allergy/AdvReac Type Severity Reaction Status Date / Time No Known Allergies Allergy Mild Verified 05/31/22 20:30 Review of Systems Review of Systems: A 10 system review of systems was completed on the patient and is negative except for what is stated in the HPI. Nursing and ancillary documentation was reviewed. PMFSH Past Medical History Medical History No known problems Family History Family History Father ALS (amyotrophic lateral sclerosis) Mother Hypertension Acute myocardial infarction CAD (coronary artery disease) Other Unknown family medical history Social History Social History Smoking status: Never smoker Alcohol intake: never Substance use: never Substance use type: does not use Gender identity (if verbalized by the patient): Male Spiritual care concerns: No Exam Narrative: GENERAL: Well-appearing, well-nourished, and in no acute distress. HEAD: Normocephalic, atraumatic. EYES: PERRLA and EOMI. ENT: Nares clear, no rhinorrhea or epistaxis. Mucous membranes moist. NECK: Supple. CHEST: Clear to auscultation. No respiratory distress. HEART: Regular rate and rhythm. No murmur heard. Normal peripheral pulses. ABDOMEN: Soft, nontender, nondistended, normal active bowel sounds. EXTREMITIES: Normal range of motion. No edema. SKIN: Warm, dry, no rash. NEURO: No focal deficits. Alert and oriented x3. PSYCH: Normal mood and affect. Course Course Emergency Course: Patient received glucagon and a sublingual nitro and was able to pass the obstruction. Vital Signs Vital signs: Vital Signs Temperature 36.4 C 05/31/22 20:26 Pulse Rate 53 L 05/31/22 20:26 Respiratory Rate 17 05/31/22 20:26 Blood Pressure 121/66 05/31/22 20:26 Pulse Oximetry 100 05/31/22 20:26 Oxygen Delivery Room Air 05/31/22 20:26 Temperature 36.4 C 05/31/22 20:26 Pulse Rate 53 L 05/31/22 20:26 Respiratory Rate 17 05/31/22 20:26 Blood Pressure 121/66 05/31/22 20:26 Pulse Oximetry 100 05/31/22 20:26 Oxygen Delivery Room Air 05/31/22 20:26 Medical Decision Making Vital Signs Vital Signs: Vital Signs Temperature 36.4 C 05/31/22 20:26 Pulse Rate 53 L 05/31/22 20:26 Respiratory Rate 17 05/31/22 20:26 Blood Pressure 121/66 05/31/22 20:26 Pulse Oximetry 100 05/31/22 20:26 Oxygen Delivery Room Air 05/31/22 20:26 Temperature 36.4 C 05/31/22 20:26 Pulse Rate 53 L 05/31/22 20:26 Respiratory Rate 17 05/31/22 20:26 Blood Pressure 121/66 05/31/22 20:26 Pulse Oximetry 100 05/31/22 20:26 Oxygen Delivery Room Air 05/31/22 20:26 Lab Data Result diagrams: 05/31/22 20:57 05/31/22 20:57
[2022-06-01 00:15] LABS: Bacteria Urine Trace /hpf; Mucus Urine Heavy /lpf; Squamous Epithelial Cell Urine Rare /hpf (Few); WBC Urine 0-3 /hpf
[2022-06-01 00:18] LABS: Appearance Urine Clear (Clear); Bilirubin Urine 1+ (Negative); Blood Urine Negative (Negative); Color Urine Yellow (Yellow); Glucose Urine UA Negative (Negative); Ketones Urine 1+ mg/dL (Negative); Leukocyte Esterase Ur Negative LEU/UL (Negative); Nitrate Urine Negative (Negative); Protein Urine 1+ mg/dL (Negative); Specific Grav Ur >= 1.030 (1.001-1.035); Urobilinogen Urine 0.2 mg/dL (<2.0); pH Urine 5.5 (5.0-9.0)
[2022-06-01 00:20] LABS: Add Urine Microscopic? YES
== END 2022-06-01 01:00 | disposition home or self-care (01) ==
PROVIDERS: Emergency Provider Emergency Medicine; PCP Specialist
DX: T18.128A Food in esophagus causing other injury, initial encounter (principal)
CPT/HCPCS: 36415; 80053; 81001; 83690; 85025; 96374; 99284; A9270; J1610

== ENCOUNTER 2022-07-08 01:23 | Day surgery (SDC) | payer OTHER, SELFPAY ==
[2022-06-26 10:41] VITALS: BMI 29.7
[2022-07-08 08:22] VITALS: BP 120/78; PULSE 54; RESP 20; TEMP 36.4; O2SAT 99; BMI 31.5
--- NOTE | 2022-07-08 08:25 | WPDANESEPPF ---
Anes - Initial Pre Proc Eval Procedure: Operation Date: 07/08/22 10:00 Proposed Procedures p Esophagogastroduodenoscopy & Screening Colonoscopy - Hector Escalona MD Date/Time: 07/08/22 08:25 Surgeon: Hector Escalona MD Pre Op Diagnosis: dysphagia; neoplasm screening Patient Data Age: 61 Gender: M Height: 1.88 m Weight: 111.3 kg Last Vital Signs Temp 97.5 F L 07/08/22 08:22 Pulse 54 L 07/08/22 08:22 Resp 20 07/08/22 08:22 BP 120/78 07/08/22 08:22 Pulse Ox 99 07/08/22 08:22 O2 Del Method Room Air 07/08/22 08:22 Allergies Allergy/AdvReac Type Severity Reaction Status Date / Time No Known Allergies Allergy Mild Verified 07/08/22 08:21 Home Medications Medication Instructions Recorded Confirmed Type atorvastatin 40 mg tablet 1 tablet PO DAILY 03/23/22 06/26/22 History aspirin 81 mg chewable tablet 81 mg PO DAILY@0800 #30 tabs 03/29/22 06/26/22 Rx (Children's Aspirin) furosemide 20 mg tablet (Lasix) 20 mg PO DAILY #30 tabs 03/29/22 06/26/22 Rx potassium chloride 10 mEq 10 meq PO DAILY@0800 #30 tabs 03/29/22 06/26/22 Rx tablet,extended release (K-Tab) sacubitril 24 mg-valsartan 26 mg 1 tab PO Q12HR #60 tabs 03/29/22 06/26/22 Rx tablet (Entresto) Patient hx anesthesia problems: none Family hx anesthesia problems: none Results Review: All pre-operative results and documents have been reviewed as part of the pre-operative evaluation. [facility] Past Medical History Medical History (Updated 06/10/22 @ 11:45 by JACKIE Kilpatrick) MILKA (acute kidney injury) Atrial flutter by electrocardiogram CHF (congestive heart failure) Heart attack Persistent atrial fibrillation Surgical History Surgical History (Updated 06/10/22 @ 12:02 by JACKIE Kilpatrick) S/P triple vessel bypass Family History Family History Father ALS (amyotrophic lateral sclerosis) Mother Hypertension Acute myocardial infarction CAD (coronary artery disease) Other Unknown family medical history Social History Social History Smoking status: Never smoker Alcohol intake: never Substance use: never Substance use type: does not use Living arrangements: with family Gender identity (if verbalized by the patient): Male Spiritual care concerns: No Anes - Eval Final PreProcedure Day of Procedure 07/08/22 08:25 Patient weight: obese Heart: regular rate and rhythm Lungs: clear to auscultation Airway: Mallampati scale class II Neurological: alert and oriented Last oral intake: >/= 8 hours ASA classification: III Emergent: no Anesthetic plan: proceed Anesthesia type and monitoring: general GIVS and standard monitoring Results Review: All pre-operative results and documents have been reviewed as part of the pre-operative evaluation. Informed Consent: The patient's anesthetic plan and its attendant risks and benefits were discussed with the patient/family/POA. Questions were solicited and answers provided to the satisfaction of the patient/family/POA.
[2022-07-08] MEDS: LACTATED RINGERS 1,000 ML 150 ML IV CONT (08:30)
--- NOTE | 2022-07-08 09:08 | PM.HPGS ---
History of Present Illness History of Present Illness Consent: Risks, benefits, and alternatives have been discussed and questions answered. Patient agrees to proceed with procedure. Chief complaint: dysphagia; neoplasm screening Narrative: Papa Fields is a 61 year old male with dysphagia for over a year, never had scopes. Review of Systems Constitutional: Constitutional: Denies headache(s) and Denies weakness Eyes: Eyes: Denies blurry vision ENT: Reports Normal hearing present, Denies headache(s) and Denies neck pain Cardiovascular: Cardiovascular: Denies chest pain and Denies dyspnea Respiratory: Respiratory: Denies dyspnea Gastrointestinal: Gastrointestinal: Reports no additional gastrointestinal complaints Genitourinary: Genitourinary: Denies dysuria Musculoskeletal: Musculoskeletal: Denies neck pain Integumentary/Breasts: Skin/Breast: Denies dry skin Neurologic: Reports Normal hearing present, Denies headache(s) and Denies weakness Psychiatric: Psychiatric: Denies anxiety Endocrine: Endocrine: Denies change in body appearance Hematologic/Lymphatic: Hematologic/Lymphatic: Denies easy bleeding Allergic/Immunologic: Allergic/Immunologic: Denies urticaria PMFSH Past Medical History Medical History (Updated 06/10/22 @ 11:45 by JACKIE Kilpatrick) MILKA (acute kidney injury) Atrial flutter by electrocardiogram CHF (congestive heart failure) Heart attack Persistent atrial fibrillation Surgical History Surgical History (Updated 06/10/22 @ 12:02 by JACKIE Kilpatrick) S/P triple vessel bypass Family History Family History Father ALS (amyotrophic lateral sclerosis) Mother Hypertension Acute myocardial infarction CAD (coronary artery disease) Other Unknown family medical history Social History Social History Smoking status: Never smoker Alcohol intake: never Substance use: never Substance use type: does not use Living arrangements: with family Gender identity (if verbalized by the patient): Male Spiritual care concerns: No Meds Home Medications and Allergies Home Medications Medication Instructions Recorded Confirmed Type atorvastatin 40 mg tablet 1 tablet PO DAILY 03/23/22 06/26/22 History aspirin 81 mg chewable tablet 81 mg PO DAILY@0800 #30 tabs 03/29/22 06/26/22 Rx (Children's Aspirin) furosemide 20 mg tablet (Lasix) 20 mg PO DAILY #30 tabs 03/29/22 06/26/22 Rx potassium chloride 10 mEq 10 meq PO DAILY@0800 #30 tabs 03/29/22 06/26/22 Rx tablet,extended release (K-Tab) sacubitril 24 mg-valsartan 26 mg 1 tab PO Q12HR #60 tabs 03/29/22 06/26/22 Rx tablet (Entresto) Allergies Allergy/AdvReac Type Severity Reaction Status Date / Time No Known Allergies Allergy Mild Verified 07/08/22 08:21 Vital Signs Vital Signs - 24 hr 07/08/22 08:22 Temperature 97.5 F L Pulse Rate 54 L Respiratory Rate 20 Blood Pressure 120/78 Pulse Oximetry 99 Oxygen Delivery Room Air Exam Const: General: comfortable and no acute distress HENMT: Face/Nose/Sinus: Normal nares present Eyes: General: appearance normal, both eyes and all related structures Neck: Neck: no JVD Resp: Auscultation: clear to auscultation bilaterally Cardio: Rate: regular rate Rhythm: regular rhythm GI: Inspection: non-distended GI Palp: Yes Soft to palpation Skin: General skin exam: normal color Neuro: General: gait normal Speech: normal speech Extrem: General: normal to inspection Psych: Mental Status: mental status grossly normal Assessment and Plan Assessment and plan (1) Screening for colon cancer: Code(s): Z12.11 - Encounter for screening for malignant neoplasm of colon Status: Acute Assessment and Plan: colonoscopy (2) Dysphagia: Code(s): R13.10 - Dysphagia, unspecified Status: Acute
--- NOTE | 2022-07-08 09:18 | SUR.OPER ---
EGD: [id number] COLON: [id number]
[2022-07-08 09:39] VITALS: BP 87/44; PULSE 52; RESP 20; O2SAT 98
[2022-07-08 09:49] VITALS: BP 98/51; PULSE 52; RESP 20; O2SAT 98
[2022-07-08 09:59] VITALS: BP 106/64; PULSE 84; RESP 20; O2SAT 98
== END 2022-07-08 10:23 | disposition home or self-care (01) ==
PROVIDERS: PCP Internal Medicine; Visit Provider Internal Medicine Gastroenterology
PROC: 0DJ08ZZ Inspection of Upper Intestinal Tract, Via Natural or Artificial Opening Endoscopic (ICD-10-PCS; CPT 43235; principal; 2022-07-08 10:00)
DX: Z12.11 Encounter for screening for malignant neoplasm of colon (principal); D12.4 Benign neoplasm of descending colon; K57.30 Diverticulosis of large intestine without perforation or abscess without bleeding; K21.00 Gastro-esophageal reflux disease with esophagitis, without bleeding; K44.9 Diaphragmatic hernia without obstruction or gangrene; K22.2 Esophageal obstruction; K29.50 Unspecified chronic gastritis without bleeding; I48.19 Other persistent atrial fibrillation; I50.9 Heart failure, unspecified; I25.2 Old myocardial infarction; Z95.1 Presence of aortocoronary bypass graft; Z79.82 Long term (current) use of aspirin; E66.9 Obesity, unspecified; Z68.31 Body mass index [BMI] 31.0-31.9, adult
CPT/HCPCS: 45385; 43239; 43249; 88305; C1726; J2704; J7120

== ENCOUNTER 2022-08-06 13:30 | Outpatient (RCR) | payer OTHER, SELFPAY | END 2022-08-07 13:44 | disposition home or self-care (01) | LOC: ANHCPREHAB 13:30 | PROVIDERS: Visit Provider Nurse Practitioner Adult Health | DX: I50.89 Other heart failure (principal) | CPT/HCPCS: 93798 ==

== ENCOUNTER 2023-02-13 01:38 | Day surgery (SDC) | payer OTHER, SELFPAY ==
[2023-02-06 12:09] VITALS: BMI 32.5
--- NOTE | 2023-02-13 09:17 | P.PNAN_ITS ---
Anes - Initial Pre Proc Eval Procedure: Operation Date: 02/13/23 10:00 Proposed Procedures p Esophagogastroduodenoscopy - eHctor Escalona MD Date/Time: 02/13/23 09:17 Surgeon: Hector Escalona MD Pre Op Diagnosis: GERD Patient Data Age: 62 Gender: M Height: 1.91 m Weight: 118 kg Allergies Allergy/AdvReac Type Severity Reaction Status Date / Time No Known Allergies Allergy Mild Verified 02/13/23 09:17 Home Medications Medication Instructions Recorded Confirmed Type atorvastatin 40 mg tablet 40 mg PO DAILY 03/23/22 02/13/23 History aspirin 81 mg chewable tablet 81 mg PO DAILY@0800 #30 tabs 03/29/22 02/13/23 Rx (Children's Aspirin) furosemide 20 mg tablet (Lasix) 20 mg PO DAILY #30 tabs 03/29/22 02/13/23 Rx potassium chloride 10 mEq 10 meq PO DAILY@0800 #30 tabs 03/29/22 02/13/23 Rx tablet,extended release (K-Tab) sacubitril 24 mg-valsartan 26 mg 1 tab PO Q12HR #60 tabs 03/29/22 02/13/23 Rx tablet (Entresto) omeprazole 40 mg capsule,delayed 40 mg PO DAILY 1 month #30 caps 01/12/23 02/13/23 Rx release Patient hx anesthesia problems: none Family hx anesthesia problems: none Results Review: All pre-operative results and documents have been reviewed as part of the pre- operative evaluation. [facility] Past Medical History Medical History (Updated 01/07/23 @ 09:40 by LUIS KendallN-C) MILKA (acute kidney injury) Atrial flutter by electrocardiogram CHF (congestive heart failure) GERD (gastroesophageal reflux disease) Heart attack Persistent atrial fibrillation Surgical History Surgical History (Updated 06/10/22 @ 12:02 by CECILE Kilpatrick-C) S/P triple vessel bypass Family History Family History Father ALS (amyotrophic lateral sclerosis) Mother Hypertension Acute myocardial infarction CAD (coronary artery disease) Other Unknown family medical history Social History Social History Smoking status: Never smoker Alcohol intake: never Substance use: never Substance use type: does not use Living arrangements: alone Gender identity (if verbalized by the patient): Male Spiritual care concerns: No Anes - Eval Final PreProcedure Day of Procedure 02/13/23 09:17 Patient weight: obese Heart: regular rate and rhythm Lungs: clear to auscultation Airway: Mallampati scale class II Neurological: alert and oriented Last oral intake: >/= 8 hours ASA classification: IV Emergent: no Anesthetic plan: proceed Anesthesia type and monitoring: general GIVS and standard monitoring Results Review: All pre-operative results and documents have been reviewed as part of the pre- operative evaluation. Informed Consent: The patient's anesthetic plan and its attendant risks and benefits were discussed with the patient/family/POA. Questions were solicited and answers provided to the satisfaction of the patient/family/POA.
[2023-02-13 09:19] VITALS: BP 135/76; PULSE 49; RESP 18; TEMP 36.2; O2SAT 99
[2023-02-13] MEDS: LACTATED RINGERS 1,000 ML 150 ML IV CONT (09:22)
--- NOTE | 2023-02-13 09:29 | PM.HPGS ---
History of Present Illness History of Present Illness Consent: Risks, benefits, and alternatives have been discussed and questions answered. Patient agrees to proceed with procedure. Chief complaint: GERD Narrative: Papa Fields is a 62 year old male with erosive esophagitis and ring dilated up to 18mm, doing better with ppi, here to reassess Review of Systems Constitutional: Constitutional: Denies headache(s) and Denies weakness Eyes: Eyes: Denies blurry vision ENT: Reports Normal hearing present, Denies headache(s) and Denies neck pain Cardiovascular: Cardiovascular: Denies chest pain and Denies dyspnea Respiratory: Respiratory: Denies dyspnea Gastrointestinal: Gastrointestinal: Reports no additional gastrointestinal complaints Genitourinary: Genitourinary: Denies dysuria Musculoskeletal: Musculoskeletal: Denies neck pain Integumentary/Breasts: Skin/Breast: Denies dry skin Neurologic: Reports Normal hearing present, Denies headache(s) and Denies weakness Psychiatric: Psychiatric: Denies anxiety Endocrine: Endocrine: Denies change in body appearance Hematologic/Lymphatic: Hematologic/Lymphatic: Denies easy bleeding Allergic/Immunologic: Allergic/Immunologic: Denies urticaria PMF Past Medical History Medical History (Updated 01/07/23 @ 09:40 by Rachele Muñoz, [employer]ACHINE OPERATOR-C) MILKA (acute kidney injury) Atrial flutter by electrocardiogram CHF (congestive heart failure) GERD (gastroesophageal reflux disease) Heart attack Persistent atrial fibrillation Surgical History Surgical History (Updated 06/10/22 @ 12:02 by Gauri Carrasquillo [employer] MANAGER-C) S/P triple vessel bypass Family History Family History Father ALS (amyotrophic lateral sclerosis) Mother Hypertension Acute myocardial infarction CAD (coronary artery disease) Other Unknown family medical history Social History Social History Smoking status: Never smoker Alcohol intake: never Substance use: never Substance use type: does not use Living arrangements: alone Gender identity (if verbalized by the patient): Male Spiritual care concerns: No Meds Home Medications and Allergies Home Medications Medication Instructions Recorded Confirmed Type atorvastatin 40 mg tablet 40 mg PO DAILY 03/23/22 02/13/23 History aspirin 81 mg chewable tablet 81 mg PO DAILY@0800 #30 tabs 03/29/22 02/13/23 Rx (Children's Aspirin) furosemide 20 mg tablet (Lasix) 20 mg PO DAILY #30 tabs 03/29/22 02/13/23 Rx potassium chloride 10 mEq 10 meq PO DAILY@0800 #30 tabs 03/29/22 02/13/23 Rx tablet,extended release (K-Tab) sacubitril 24 mg-valsartan 26 mg 1 tab PO Q12HR #60 tabs 03/29/22 02/13/23 Rx tablet (Entresto) omeprazole 40 mg capsule,delayed 40 mg PO DAILY 1 month #30 caps 01/12/23 02/13/23 Rx release Allergies Allergy/AdvReac Type Severity Reaction Status Date / Time No Known Allergies Allergy Mild Verified 02/13/23 09:17 Vital Signs Vital Signs - 24 hr 02/13/23 09:19 Temperature 97.2 F L Pulse Rate 49 L Respiratory Rate 18 Blood Pressure 135/76 Pulse Oximetry 99 Oxygen Delivery Room Air Exam Const: General: comfortable and no acute distress HENMT: Face/Nose/Sinus: Normal nares present Eyes: General: appearance normal, both eyes and all related structures Neck: Neck: no JVD Resp: Auscultation: clear to auscultation bilaterally Cardio: Rate: regular rate Rhythm: regular rhythm GI: Inspection: non-distended GI Palp: Yes Soft to palpation Skin: General skin exam: normal color Neuro: General: gait normal Speech: normal speech Extrem: General: normal to inspection Psych: Mental Status: mental status grossly normal Assessment and Plan Assessment and plan (1) GERD (gastroesophageal reflux disease): Code(s): K21.9 - Gastro-esophageal reflux disease without esophagiti
[2023-02-13 09:44] VITALS: BP 134/99; PULSE 48; RESP 21; O2SAT 99
[2023-02-13 09:54] VITALS: BP 129/75; PULSE 48; RESP 22; O2SAT 98
[2023-02-13 10:04] VITALS: BP 122/80; PULSE 46; RESP 21; O2SAT 97
== END 2023-02-13 10:13 | disposition home or self-care (01) ==
PROVIDERS: PCP Internal Medicine; Visit Provider Internal Medicine Gastroenterology
PROC: 0DJ08ZZ Inspection of Upper Intestinal Tract, Via Natural or Artificial Opening Endoscopic (ICD-10-PCS; CPT 43235; principal; 2023-02-13 10:00)
DX: K21.9 Gastro-esophageal reflux disease without esophagitis (principal); K22.2 Esophageal obstruction; K44.9 Diaphragmatic hernia without obstruction or gangrene; K29.70 Gastritis, unspecified, without bleeding; I50.9 Heart failure, unspecified; I48.19 Other persistent atrial fibrillation; I25.2 Old myocardial infarction; Z79.82 Long term (current) use of aspirin; Z95.1 Presence of aortocoronary bypass graft; E66.9 Obesity, unspecified; Z68.32 Body mass index [BMI] 32.0-32.9, adult
CPT/HCPCS: 43249; C1726; J2704; J7120

== ENCOUNTER 2023-07-06 20:54 | Inpatient (IN) | payer OTHER, SELFPAY ==
--- NOTE | ~2023-07-06 | XR_ITS ---
XR chest 2V 07/06/2023 21:17 Indication: Chest pain Procedure: 2 view chest Comparison: 03/27/2022 Findings: Status post median sternotomy for CABG. Bilateral airspace disease, left greater than right . There is left pleural thickening. Small left pleural effusion. Impression: 1: Bilateral airspace disease, left greater than right. These findings are not significantly changed from prior examination and may reflect chronic asymmetric scarring/atelectasis or atypical pneumonia. Reviewed, dictated and finalized at location A. Impression: 1: Bilateral airspace disease, left greater than right. These findings are not significantly changed from prior examination and may reflect chronic asymmetric scarring/atelectasis or atypical pneumonia.
--- NOTE | ~2023-07-06 | XR_ITS ---
XR chest 1V portable 07/09/2023 23:31 Indication: Central line placement attempt. Assess for pneumothorax. Procedure: AP portable chest Comparison: 07/06/2023 Findings: Status post median sternotomy for CABG. There is pulmonary edema. Left pleural effusion. Ca rdiomegaly. No pneumothorax identified. Impression: 1: Cardiomegaly with mild interstitial edema. 2: Small left pleural effusion. Reviewed, dictated and finalized at location A. Impression: 1: Cardiomegaly with mild interstitial edema. 2: Small left pleural effusion.
--- NOTE | 2023-07-06 20:56 | ECG_ITS ---
Measurements Intervals [place] Rate: 135 P: 108 [place]: 171 QRS: 87 QRSD: 150 T: -10 QT: 344 QTc: 516 Interpretive Statements ATRIAL FLUTTER/TACHYCARDIA WITH RAPID VENTRICULAR RESPONSE RIGHT BUNDLE BRANCH BLOCK [120+ ms QRS DURATION, UPRIGHT V1, 40+ ms S IN I/aVL/V4/V5/V6] COMPARED TO ECG 03/27/2022 09:37:19 ATRIAL FLUTTER/TACHYCARDIA WITH RAPID VENTRICULAR RESPONSE NOW PRESENT Electronically Signed On 07-07-2023 11:26:58 CDT by Daniela Matias M.D.
[2023-07-06 21:02] VITALS: BP 136/102; PULSE 136; RESP 20; TEMP 36.3; O2SAT 100
[2023-07-06 21:19] LABS: Basophils Absolute Auto 0.1 K/mm3 (0.0-0.1); Basophils Percent Auto 0.8 % (0.2-1.2); Eosinophils Absolute Auto 0.3 K/mm3 (0-0.3); Eosinophils Percent Auto 3.7 % (0-4.4); Hematocrit 49.5 % (42.0-52.0); Immature Granulocyte Absolute 0.01 K/mm3 (0.00-0.031); Immature Granulocyte Percent A 0.1 % (0-0.5); Lymphocytes Absolute Auto 1.84 K/mm3 (0.9-3.2); Lymphocytes Percent Auto 25.9 % (18.3-44.2); Mean Corpuscular HGB Conc 32.3 g/dl (32-36); Mean Corpuscular Hemoglobin 30.4 pg (26-34); Mean Corpuscular Volume 94.1 fl (80-100); Monocytes Absolute Auto 0.5 K/mm3 (0.1-0.6); Monocytes Percent Auto 7.3 % (2.6-8.5); Neutrophils Absolute Auto 4.4 K/mm3 (1.3-6.7); Neutrophils Percent Auto 62.2 % (45.5-73.1); Platelet Count Result 178 k/mm3 (150-375); Red Blood Count 5.26 M/mm3 (4.6-6.20); Red Cell Distribution Width 13.2 % (11.5-14.5); White Blood Count 7.1 K/mm3 (4.5-10.0)
[2023-07-06 21:29] LABS: Partial Thromboplastin Time 26.5 SECONDS (22.3-36.8); Prothrombin Time 13.6 Seconds (11.1-14.7)
[2023-07-06 21:30] LABS: Alanine Aminotransferase 50 U/L (6-50); Albumin Level 4.4 g/dL (3.5-5.1); Alkaline Phosphatase 83 U/L (38-126); Anion Gap 9 mmol/L (8-16); Aspartate Amino Transferase 39 U/L (17-59); Bilirubin,Total 2.3 mg/dL (0.2-1.3); Blood Urea Nitrogen 19 mg/dL (9-20); Calcium 9.1 mg/dL (8.4-10.2); Carbon Dioxide 27 mmol/L (22-30); Chloride 103 mmol/L (98-107); Estimated CRCL calculation 66 ml/min; Estimated Glomerular Filt Rate 48; Glucose 116 mg/dL (65-110); Lipase 219 U/L (23-300); Sodium 139 mmol/L (137-145)
[2023-07-06 21:50] LABS: Troponin I 0.046 ng/mL (0.000-0.034)
--- NOTE | 2023-07-06 22:22 | ECG_ITS ---
Measurements Intervals [place] Rate: 83 P: [place]: 0 QRS: 100 QRSD: 158 T: 12 QT: 402 QTc: 473 Interpretive Statements ATRIAL FIBRILLATION WITH VENTRICULAR PREMATURE COMPLEXES RIGHT BUNDLE BRANCH BLOCK COMPARED TO ECG 07/06/2023 22:24:50 RATE CONTROLLED ATRIAL FIBRILLATION NOW PRESENT Electronically Signed On 07-07-2023 11:28:48 CDT by Daniela Matias M.D.
[2023-07-06 22:28] VITALS: BP 127/74; PULSE 136; RESP 22; O2SAT 99
[2023-07-06] MEDS: ASPIRIN 81 MG CHEWABLE TABLET 324 MG PO (22:30)
[2023-07-06 22:41] VITALS: BP 120/94; PULSE 133; RESP 12; O2SAT 96
[2023-07-06] MEDS: dilTIAZem HCl INJ 25 MG/5 ML VIAL 10 MG IV PUSH (22:41)
--- NOTE | 2023-07-06 22:50 | ECG_ITS ---
Measurements Intervals [place] Rate: 130 P: 52 [place]: 189 QRS: 90 QRSD: 155 T: -7 QT: 335 QTc: 494 Interpretive Statements ATRIAL FLUTTER/TACHYCARDIA WITH RAPID VENTRICULAR RESPONSE RIGHT BUNDLE BRANCH BLOCK [120+ ms QRS DURATION, UPRIGHT V1, 40+ ms S IN I/aVL/V4/V5/V6] COMPARED TO ECG 07/06/2023 21:00:14 NO SIGNIFICANT CHANGES Electronically Signed On 07-07-2023 11:27:42 CDT by Daniela Matias M.D.
--- NOTE | 2023-07-06 23:33 | ED.GENADULT ---
HPI - General Adult General Chief complaint: Chest Pain Stated complaint: having a heart attack Time Seen by Provider: 07/06/23 22:18 History of Present Illness HPI narrative: This is a 62-year-old male with significant cardiac history presenting ED with chief complaint of chest pain. Patient says that he started to have achy pain in the center of his chest that radiates to his neck and under both arms at 7:00 p.m.. It is a burning achy tightness. Is 4 out 10 in intensity. Is improving. He says that this feels like when he has had angina in the past. No exacerbating alleviating symptoms. Patient denies shortness of breath vomiting or diaphoresis. He has not noticed any exertional component. Patient denies fever chills. Related Data Home Medications Medication Instructions Recorded Confirmed atorvastatin 40 mg tablet 40 mg PO DAILY 03/23/22 02/13/23 Allergies Allergy/AdvReac Type Severity Reaction Status Date / Time No Known Allergies Allergy Mild Verified 02/13/23 09:17 [facility], LAT[facility] Past Medical History Medical History MILKA (acute kidney injury) Atrial flutter by electrocardiogram CHF (congestive heart failure) GERD (gastroesophageal reflux disease) Heart attack Persistent atrial fibrillation Surgical History Surgical History S/P triple vessel bypass Family History Family History Father ALS (amyotrophic lateral sclerosis) Mother Hypertension Acute myocardial infarction CAD (coronary artery disease) Other Unknown family medical history Social History Social History Smoking status: Never smoker Alcohol intake: never Substance use: never Substance use type: does not use Living arrangements: alone Gender identity (if verbalized by the patient): Male Spiritual care concerns: No Exam Narrative: APPEARANCE: No apparent distress. Head: atraumatic. EYES: EOMI, NOSE: Atraumatic NECK: Trachea midline RESPIRATORY: No increased rate of breathing clear to auscultation CARDIOVASCULAR: tachycardic, irregular heartbeat no peripheral edema ABDOMINAL: soft nontender no guarding rebound MUSCULOSKELETAl: No obvious deformities NEURO: Alert. Moving 4/4 extremities SKIN:: Warm, dry. Normal color PSYCHIATRIC: Normal affect Course Vital Signs Vital signs: Vital Signs Temperature 97.3 F L 07/06/23 21:02 Pulse Rate 136 H 07/06/23 21:02 Respiratory Rate 20 07/06/23 21:02 Blood Pressure 136/102 H 07/06/23 21:02 Pulse Oximetry 100 07/06/23 21:02 Oxygen Delivery Room Air 07/06/23 21:02 Temperature 97.3 F L 07/06/23 21:02 Pulse Rate 90 07/06/23 23:43 Respiratory Rate 15 07/06/23 23:43 Blood Pressure 128/70 07/06/23 23:43 Pulse Oximetry 98 07/06/23 23:43 Oxygen Delivery Room Air 07/06/23 21:02 Medical Decision Making MDM Narrative Medical decision making narrative: -Course: 62-year-old male with significant cardiac history presenting with chest pain. Found to be in AFib with RVR. Given 10mg of Cardizem which converted his heart rate to around 90. No EKG changes of ischemic heart disease. Chest pain improved after Cardizem. troponin ordered by triage and was elevated at .046. this will be trended. Patient Chadsvasc >2 and is not currently taking anticoagulation. Given subQ dose of Lovenox. Patient will be admitted to the hospital for trending of his troponins and cardiac evaluation. 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
[2023-07-06 23:43] VITALS: BP 128/70; PULSE 90; RESP 15; O2SAT 98
[2023-07-07] VITALS (18 sets, daily range): BP systolic 104–136; BP diastolic 72–102; PULSE 48–137; RESP 16–20; TEMP 35.8–36.9; O2SAT 97–99; BMI 35.3
[2023-07-07] MEDS: ENOXAPARIN 120 MG/0.8 ML SYRINGE SUB-Q ×3 (01:03→20:57)
--- NOTE | 2023-07-07 01:29 | ADMGEN ---
This patient, Papa Fields, was admitted to IMU Room 205-01. Patient/family oriented to hospital policies and general routines including ID bracelet, bed and alarms, visiting hours, pain management, procedures, bathroom and other care routines, personal items, smoking policy, room service/diet, and visiting hours. Information on how to activate the Rapid Response Team has been discussed. Patient/Family are encouraged to report perceived risks to care and to ask questions if they do not understand what they are told or what they should do.
--- NOTE | 2023-07-07 08:19 | PM.IMHP ---
H&P: HPI History of Present Illness Date/Time: 07/07/23 08:19 Chief Complaint: neck pain Narrative: This is a 62 y/o M with pmh of cabg triple bypass in 2019, hx of chf and admission for afib rvr 1 yr ago around 03/2022 where he presented in decompensated chf, who is presenting with a 3 day hx of neck and chest pain with no other associated symptoms, seen to have afib rvr on ER admission last night. His PMH is also notable for afib rvr in 03/2022 where he had chf, developed bradycardia and hypotension to sotalol drip, and had to have cardioversion to get him back to SR. He was between afib and aflutter then. He was deemed to not tolerate BB. An echo done at that time was very significant for LVEF 20-25%, inferior posterior akinetic segments with the remainder of the LV diffusely hypokinetic, RV moderately enlarged, and RVSP borderline at 38 mm Hg (low cut off is 36 mmHg). He reports a weight gain of 50 lbs over the past 1.5 years since his last admission. He reports medication compliance. He reports no other associated symptoms. He lives a sedentary lifestyle. He has also been dehydrated over the past week or so. He says he doesn't drink much water, only Sprite. He had an EGD with transendoscopic balloon dilation of the esophagus for a hiatal ring on 02/13/23. Also a hiatal hernia and gastritis was found on endoscopy. He does not smoke or drink. In the ER he was given dilt 10mg x 1, asa 325 and started on therapeutic lovenox. His HR went down briefly, but has been in 100-110's ON, 135 in afib rvr on exam. His BP has wavered between an 130/100's and 100/70's. Review of Systems Review of Systems: see above. cp, no sob or exertional sob. [facility] Past Medical History Medical History (Updated 07/07/23 @ 08:47 by Ran Ruiz MD) MILKA (acute kidney injury) Atrial flutter by electrocardiogram CHF (congestive heart failure) Elevated troponin GERD (gastroesophageal reflux disease) Heart attack Persistent atrial fibrillation Surgical History Surgical History (Updated 07/07/23 @ 08:47 by Ran Ruiz MD) Hx of CABG S/P triple vessel bypass Family History Family History Father ALS (amyotrophic lateral sclerosis) Mother Hypertension Acute myocardial infarction CAD (coronary artery disease) Other Unknown family medical history Social History Social History Smoking status: Never smoker Alcohol intake: never Substance use: never Substance use type: does not use Lack of Transportation: No Lack of Food: Never True Current Housing: I Have Housing Concerned About Future Housing: No Difficulty Paying Gas/Electric Bills: No Difficulty Paying for Meds: No Currently Unemployed: No Education: High School Diploma/GED Difficulty w/ Childcare or Family Care: No Living arrangements: alone Gender identity (if verbalized by the patient): Male Spiritual care concerns: No Meds Home Medications and Allergies Home Medications Medication Instructions Recorded Confirmed Type atorvastatin 40 mg tablet 40 mg PO DAILY 03/23/22 07/07/23 History aspirin 81 mg chewable tablet 81 mg PO DAILY@0800 #30 tabs 03/29/22 07/07/23 Rx ([facility]'s Aspirin) furosemide 20 mg tablet (Lasix) 20 mg PO DAILY #30 tabs 03/29/22 07/07/23 Rx potassium chloride 10 mEq 10 meq PO DAILY@0800 #30 tabs 03/29/22 07/07/23 Rx tablet,extended release (K-Tab) sacubitril 24 mg-valsartan 26 mg 1 tab PO Q12HR #60 tabs 03/29/22 07/07/23 Rx tablet (Entresto) omeprazole 40 mg capsule,delayed 40 mg PO DAILY 1 month #30 caps 01/12/23 07/07/23 Rx release Allergies Allergy/AdvReac Type Severity Reaction Status Date / Time No Known Allergies Allergy Mild Verified 02/13/23 09:17 Vital Signs Vital Signs - 24 hr 07/06/23 21:02 07/06/23 22:28 07/06/23 22:41 Temperature 97.3 F L Pulse Rate 136 H 136 H 133 H Re
[2023-07-07] MEDS: AMIODARONE 360 MG/D5W 200 ML 360 MG/200 ML BAG 33.33 MG IV CONT (08:30)
[2023-07-07] MEDS: AMIODARONE 150 MG/D5W 100 ML 150 MG/100 ML BAG 600 MG IV CONT (08:30)
[2023-07-07] MEDS: PANTOPRAZOLE 40 MG TABLET PO (08:31)
[2023-07-07] MEDS: ASPIRIN 81 MG ENTERIC TABLET PO (08:31)
[2023-07-07] MEDS: ATORVASTATIN 40 MG TABLET PO (10:25)
[2023-07-07] MEDS: SACUBITRIL/VALSARTAN 24-26 MG TABLET 1 TAB PO ×2 (10:25→20:57)
[2023-07-07] MEDS: AMIODARONE 360 MG/D5W 200 ML 360 MG/200 ML BAG 16.67 MG IV CONT (14:09)
[2023-07-07] MEDS: METOPROLOL TARTRATE 25 MG TABLET PO ×2 (17:07→20:57)
[2023-07-07] MEDS: AMIODARONE HCL 200 MG TABLET PO (20:57)
[2023-07-08] VITALS (17 sets, daily range): BP systolic 106–116; BP diastolic 67–89; PULSE 60–125; RESP 16–98; TEMP 36.2–36.8; O2SAT 16–100
--- NOTE | 2023-07-08 | ECHO_ITS ---
Patient Info Name: Papa Fields Age: 62 years : 1960 Gender: Male Ht: 74 in Wt: 275 lbs BSA: 2.59 m2 HR: 82 bpm BP: 113 / 77 mmHg Heart Rhythm: Atrial Flutter Technical Quality: Fair Exam Date: 07/08/2023 10:21 AM Exam Location: Echo Lab Patient Status: Inpatient Admit Date: 07/07/2023 Staff Ordering Physician: Ran Ruiz MD Pump Service Supervisor: Hannah Belcher RDCS Attending Provider: Li Zuniag DO Exam Type: CA echo dop color flow w con Study Info Indications - pt came with A- fib rvr and chf. Complete two-dimensional, color flow and Doppler transthoracic echocardiogram is performed. Summary 1. Complete two-dimensional, color flow and Doppler transthoracic echocardiogram is performed. 2. Left ventricular chamber dimension is normal. 3. Left ventricular systolic function is severely reduced, estimated at 20-25%. 4. There is moderately increased left ventricular wall thickness. 5. Left ventricular septal wall motion is abnormal with septal motion related to bundle branch block. 6. The left ventricular diastolic function is abnormal. 7. Right ventricular chamber dimension is mildly enlarged. 8. Right ventricular systolic function is reduced. 9. Left atrial chamber dimension is mildly enlarged. 10. Right atrial chamber dimension is mildly enlarged. 11. There is mild mitral valve regurgitation. 12. There is mild tricuspid valve regurgitation. 13. Mild pulmonary hypertension, estimated pulmonary arterial systolic pressure is 39 mmHg. Left Ventricle Left ventricular chamber dimension is normal. Left ventricular systolic function is severely reduced, estimated at 20-25%. There is moderately increased left ventricular wall thickness. Left ventricular septal wall motion is abnormal with septal motion related to bundle branch block. The left ventricular diastolic function is abnormal. Right Ventricle Right ventricular chamber dimension is mildly enlarged. Right ventricular systolic function is reduced. Left Atria Left atrial chamber dimension is mildly enlarged. Right Atria Right atrial chamber dimension is mildly enlarged. Atrial Septum Intact interatrial septum visualized by color flow imaging. Aortic Valve The aortic valve is probable trileaflet. There is no aortic valve stenosis. There is trace aortic valve regurgitation. Pulmonic Valve The pulmonic valve is normal. There is no pulmonic valve stenosis. There is trace pulmonic regurgitation. Mitral Valve The mitral valve has normal leaflets. There is no mitral valve stenosis. There is mild mitral valve regurgitation. Tricuspid Valve The tricuspid valve leaflets are normal. There is no significant tricuspid valve stenosis. There is mild tricuspid valve regurgitation. Mild pulmonary hypertension, estimated pulmonary arterial systolic pressure is 39 mmHg. Pericardium/Pleural The pericardium appears normal. There is no pericardial effusion. Inferior Vena Cava Normal inferior vena cava with <50% collapse upon inspiration consistent with elevated right atrial pressure, 10 mmHg. Aorta The aortic root size at the sinus of Valsalva is normal. Left Ventricular Outflow Tract Name Value Normal LVOT 2D LVOT Diameter 2.24 cm LVOT Doppler
[2023-07-08 05:29] LABS: NT Pro B Type Natriuretic Pept 931 pg/mL (19.9-100)
[2023-07-08 05:38] LABS: Anion Gap 7 mmol/L (8-16); Blood Urea Nitrogen 22 mg/dL (9-20); Calcium 8.9 mg/dL (8.4-10.2); Carbon Dioxide 27 mmol/L (22-30); Chloride 104 mmol/L (98-107); Estimated CRCL calculation 76 ml/min; Estimated Glomerular Filt Rate 56; Glucose 96 mg/dL (65-110); Potassium 4.1 mmol/L (3.4-5.0); Sodium 138 mmol/L (137-145)
--- NOTE | 2023-07-08 07:40 | PM.IMPN ---
Progress Note: A&P Assessment and Plan (1) Hx of CABG: Code(s): Z95.1 - Presence of aortocoronary bypass graft Status: Acute (2) Elevated troponin: Code(s): R77.8 - Other specified abnormalities of plasma proteins Status: Acute (3) Chronic systolic heart failure: Code(s): I50.22 - Chronic systolic (congestive) heart failure Status: Acute (4) Atrial fibrillation with RVR: Code(s): I48.91 - Unspecified atrial fibrillation Status: Acute (5) A-fib: Code(s): I48.91 - Unspecified atrial fibrillation Status: Acute (6) GERD (gastroesophageal reflux disease): Code(s): K21.9 - Gastro-esophageal reflux disease without esophagitis Status: Acute (7) Persistent atrial fibrillation: Code(s): I48.19 - Other persistent atrial fibrillation Status: Resolved (8) Encounter to establish care: Code(s): Z76.89 - Persons encountering health services in other specified circumstances Status: Acute (9) Decreased GFR: Code(s): R94.4 - Abnormal results of kidney function studies Status: Acute (10) CHF (congestive heart failure): Code(s): I50.9 - Heart failure, unspecified Status: Acute Plan 1. Afib rvr Start amiodarone bolus and drip When his rate goes down, then we can get an echo On therapeutic lovenox for stroke prevention/ AC- continue If rate does not go down when he is on drip or he does not convert, start digoxin can continue entresto bid Hold lasix until bp improves- borderline Can use IV pushes of metoprol for afib HR >120 if SBP>120 and DBP>80, 5 mg ivp q6 hr prn. Can transition him to low dose po metop if it works. 07/08: restart amio drip/bolus. may need use digoxin if this fails as well. increase metop to 50 mg bid tartrate. Give IVF 500 ml over 5 hrs. F/u echo start eliquis and stop lovenox after today 2. Hx of Systolic CHF repeat echo when afib rate down may have to start digoxin, currently will use amiodarone ct entresto bid failed BB previously, most likely because of R sided heart failure. He probably needs aggressive diuresis when his afib rvr is controlled and his BP can tolerate it. f/u bnp 07/08: BNP 900 but much reduced from the 7000 he had previously 3. Elevated troponin minimal elevation most likely demand ischemia from CHF and afib rvr trend on asa 81 and therapeutic lovenox 120 mg q12 4. Hx of CAD and hx of CABG in 2019 ct asa and entresto, 5. Hx of gastritis ct protonix 40 qd (on omeprazole at home) Full code Inpt/IMU About 30 min hr was spent doing this evaluation and admission and discussion with pt Subjective Date/time seen: 07/08/23 07:40 Interval history: PT is reporting feeling dehydrated. Reports no other symptoms. Went into SR around 7 pm yesterday. Amio drip was stopped and pt was placed on PO amio 200 mg bid. He went back into afib sometime during the shift nurse manager but no amio drip was restarted. Amio drip has been restarted this morning with bolus, and echo will be done this morning. Review of Systems Review of Systems: no other sx Exam Narrative: Gen: normal appearing male, NAD HEENT: unremarkable Lungs: Decreased bs at bases L>R CV: tachy, irregular rate, LV heave at L chest gone, no murmur appreciated, s4 gone Abd: soft nt, nd bs+ Ext: trace LE edema Neuro psych: normal, no focal deficits Objective Data Vital Signs Vital Signs: Vital Signs - 24 hr 07/07/23 08:00 07/07/23 08:00 07/07/23 08:00 Temperature 97.3 F L Pulse Rate 136 H 134 H Respiratory Rate 16 Blood Pressure 119/94 H Pulse Oximetry 99 Oxygen Delivery Room Air 07/07/23 10:00 07/07/23 11:36 07/07/23 12:00 Temperature 96.5 F L Pulse Rate 89 48 L Respiratory Rate 16 Blood Pressure 126/72 Pulse Oximetry 97 Oxygen Delivery Room Air 07/07/23 12:00 07/07/23 14:00 07/07/23 16:00 Temperature 97.7 F Pulse Rate 98 91 88 Respiratory Rate 20 Blood P
[2023-07-08] MEDS: SODIUM CHLORIDE 0.9% IV 500 ML 100 ML IV CONT (08:10)
[2023-07-08] MEDS: AMIODARONE 150 MG/D5W 100 ML 150 MG/100 ML BAG 600 MG IV CONT (08:10)
[2023-07-08] MEDS: ATORVASTATIN 40 MG TABLET PO (08:11)
[2023-07-08] MEDS: ASPIRIN 81 MG ENTERIC TABLET PO (08:11)
[2023-07-08] MEDS: AMIODARONE 360 MG/D5W 200 ML 360 MG/200 ML BAG 33.33 MG IV CONT (08:11)
[2023-07-08] MEDS: METOPROLOL TARTRATE 50 MG TAB PO ×2 (08:11→21:43)
[2023-07-08] MEDS: SACUBITRIL/VALSARTAN 24-26 MG TABLET 1 TAB PO ×2 (08:11→21:43)
[2023-07-08] MEDS: APIXABAN 5 MG TABLET PO ×2 (08:11→21:43)
[2023-07-08] MEDS: ENOXAPARIN 120 MG/0.8 ML SYRINGE SUB-Q ×2 (08:11→22:16)
[2023-07-08] MEDS: PERFLUTREN LIPID MICROSPHERES 1.5 ML VIAL DILUTED TO 10 ML TOTAL VOLUME IV PUSH (10:10)
[2023-07-08] MEDS: AMIODARONE 360 MG/D5W 200 ML 360 MG/200 ML BAG 16.67 MG IV CONT (13:59)
[2023-07-09] VITALS (32 sets, daily range): BP systolic 78–131; BP diastolic 41–96; PULSE 34–117; RESP 11–24; TEMP 36.3–36.8; O2SAT 95–100
[2023-07-09 07:28] LABS: Anion Gap 7 mmol/L (8-16); Blood Urea Nitrogen 18 mg/dL (9-20); Calcium 8.7 mg/dL (8.4-10.2); Carbon Dioxide 25 mmol/L (22-30); Chloride 106 mmol/L (98-107); Estimated CRCL calculation 77 ml/min; Estimated Glomerular Filt Rate 56; Glucose 95 mg/dL (65-110); Potassium 3.9 mmol/L (3.4-5.0); Sodium 138 mmol/L (137-145)
--- NOTE | 2023-07-09 07:56 | PM.IMPN ---
Progress Note: A&P Assessment and Plan (1) Hx of CABG: Code(s): Z95.1 - Presence of aortocoronary bypass graft Status: Acute (2) Elevated troponin: Code(s): R77.8 - Other specified abnormalities of plasma proteins Status: Acute (3) Chronic systolic heart failure: Code(s): I50.22 - Chronic systolic (congestive) heart failure Status: Acute (4) Atrial fibrillation with RVR: Code(s): I48.91 - Unspecified atrial fibrillation Status: Acute (5) A-fib: Code(s): I48.91 - Unspecified atrial fibrillation Status: Acute (6) GERD (gastroesophageal reflux disease): Code(s): K21.9 - Gastro-esophageal reflux disease without esophagitis Status: Acute (7) Persistent atrial fibrillation: Code(s): I48.19 - Other persistent atrial fibrillation Status: Resolved (8) Encounter to establish care: Code(s): Z76.89 - Persons encountering health services in other specified circumstances Status: Acute (9) Decreased GFR: Code(s): R94.4 - Abnormal results of kidney function studies Status: Acute Plan 1. Afib rvr Start amiodarone bolus and drip When his rate goes down, then we can get an echo On therapeutic lovenox for stroke prevention/ AC- continue If rate does not go down when he is on drip or he does not convert, start digoxin can continue entresto bid Hold lasix until bp improves- borderline Can use IV pushes of metoprol for afib HR >120 if SBP>120 and DBP>80, 5 mg ivp q6 hr prn. Can transition him to low dose po metop if it works. 07/08: restart amio drip/bolus. may need use digoxin if this fails as well. increase metop to 50 mg bid tartrate. Give IVF 500 ml over 5 hrs. F/u echo start eliquis and stop lovenox after today 07/09: Unable to get out of afib with amio drip and oral metop. HR 70's, BP 110/60. Recommend dc cardioversion. Does not meet indications for digoxin with normal rate now. Will place cardiology consult and discuss with popcorn attendant. on eliquis now. Has been anticoagulated since admission. 2. Hx of Systolic CHF repeat echo when afib rate down may have to start digoxin, currently will use amiodarone ct entresto bid failed BB previously, most likely because of R sided heart failure. He probably needs aggressive diuresis when his afib rvr is controlled and his BP can tolerate it. f/u bnp 07/08: BNP 900 but much reduced from the 7000 he had previously 07/09: CAD with hx of CABG needs to be evaluated as the cause. Concern that a nuclear medicine perfusion/echo scan would trigger uncontrolled afib again. May need outpt coronary angiography. Will place cardiology consult and discuss with popcorn attendant. 3. Elevated troponin minimal elevation most likely demand ischemia from CHF and afib rvr trend on asa 81 and therapeutic lovenox 120 mg q12 4. Hx of CAD and hx of CABG in 2019 ct asa and entresto, 5. Hx of gastritis ct protonix 40 qd (on omeprazole at home) Full code Inpt/IMU About 45 min hr was spent doing this evaluation and admission and discussion with pt Time Spent With Patient Time: 45 min Subjective Date/time seen: 07/09/23 07:56 Interval history: no symptoms of chest pain radiating to neck. trace LE edema. Has been in bed mostly. Review of Systems Review of Systems: no other complaints. Exam Narrative: Gen: normal appearing male, NAD HEENT: unremarkable Lungs: bl bs improved CV: regular rate, irregular rhythm, LV heave at L chest gone, no murmur appreciated, s4 gone Abd: soft nt, nd bs+ Ext: trace LE edema Neuro psych: normal, no focal deficits Objective Data Vital Signs Vital Signs: Vital Signs - 24 hr 07/08/23 08:00 07/08/23 08:00 07/08/23 10:00 Temperature Pulse Rate 125 H 69 Respiratory Rate Blood Pressure Pulse Oximetry Oxygen Delivery Room Air 07/08/23 11:36 07/08/23 12:00 07/08/23 12:00 Temperature 98.1 F Pulse Rate 65 76 Respiratory Rate 18
[2023-07-09] MEDS: ATORVASTATIN 40 MG TABLET PO (09:44)
[2023-07-09] MEDS: METOPROLOL TARTRATE 50 MG TAB PO (09:44)
[2023-07-09] MEDS: SACUBITRIL/VALSARTAN 24-26 MG TABLET 1 TAB PO (09:44)
[2023-07-09] MEDS: APIXABAN 5 MG TABLET PO ×2 (09:44→20:58)
[2023-07-09] MEDS: ASPIRIN 81 MG ENTERIC TABLET PO (09:44)
--- NOTE | 2023-07-09 11:04 | IVDEFINITY ---
Prior to administration of IV Definity the patient was educated on the risks and benefits of the imaging enhancing agent including potential adverse side effects. The patient verbalized understanding. Allergies were verified. No exclusion criteria were identified and at least one of the following inclusion criteria were met: 1) physician request, 2) patient technically difficult to image (per the [place] [employer] guidelines of two or more segments not discernable within the apical view), or 3) questionable left ventricular function. ?
--- NOTE | 2023-07-09 11:11 | PM.CNCAR ---
Assessment and Plan Assessment and plan (1) Chronic systolic heart failure: Code(s): I50.22 - Chronic systolic (congestive) heart failure Status: Acute Assessment and Plan: Patient has mild acute on chronic systolic congestive heart failure. Likely worsened by atrial fibrillation with rapid ventricular response. (2) Atrial fibrillation with RVR: Code(s): I48.91 - Unspecified atrial fibrillation Status: Acute Assessment and Plan: On amiodarone and beta-goran. Will discontinue both his he does have a history bradycardia and heart rates in the 50s while in sinus rhythm. He does have a history of left atrial appendage ligation which greatly mitigates risk of thrombus. Continue anticoagulation for now and at least for the next month as the patient will likely undergo elective cardioversion later today or tomorrow. His ejection fraction has improved significantly in the past well maintaining sinus rhythm. (3) Cardiomyopathy: Code(s): I42.9 - Cardiomyopathy, unspecified Status: Acute Assessment and Plan: Severe. Possibly related atrial with RVR on top of underlying ischemic cardiomyopathy. He did have underlying chest pain also upon presentation. Will keep NPO after midnight for Lexiscan perfusion study tomorrow (4) CAD (coronary artery disease): Code(s): I25.10 - Atherosclerotic heart disease of [place] coronary artery without angina pectoris Status: Acute Assessment and Plan: Continue aspirin, statin, Entresto, furosemide and potassium supplement History of Present Illness History of Present Illness Consult date/time: 07/09/23 11:11 Requesting physician: Ran Ruiz MD Consult reason: atrial fibrillation Reason For Visit: A-Fib w/RVR Narrative: Reason for consultation: Atrial fibrillation Date of service 07/09/2023 Requesting provider: Dr. Ruiz History: Patient is a 62-year-old male who has a history of coronary disease underwent coronary bypass graft in 2019. He also has history of atrial fibrillation dating back to March 2022 whenever he presented with decompensated heart failure and a ejection fraction 20-25%. He had an outpatient echo in June 2022 while in sinus rhythm showed which showed improvement of his ejection fraction back up to 45%. He presented to the hospital because of some bilateral upper arm, neck and chest pain. It felt similar but not nearly as severe as his myocardial infarction pain. He did not feel any palpitations. He came to the hospital was found to be in atrial fibrillation with rapid ventricular response. With slowing his heart rate with diltiazem in the ER, his symptoms did improve. He was started on Lovenox and as well as some amiodarone and metoprolol. Despite these efforts, he remains in atrial fibrillation and cardiology consultation was requested. Patient has had some lower extremity swelling which is worse over the past couple of weeks. He denies any significant shortness of breath. No syncope, presyncope, paroxysmal nocturnal dyspnea orthopnea. At the time of his presentation in 2019 patient had an acute inferior myocardial infarction due to a distally occluded RCA. He underwent plain old balloon angioplasty of the RPDA and PL branches he was found to have significant left coronary disease also. He was transferred [facility] had a PATEL to the LAD a radial artery graft to the OM and SVG to the PDA. He also underwent a Maze procedure and excision of left atrial appendage at that time. EF was 45% Review of Systems Review of Systems: All systems reviewed & are unremarkable except as noted in HPI and below Constitutional: Constitutional: Denies body ache(s) Eyes: Eyes: Denies blurry vision ENT: Reports Normal hearing present Cardiovascular: Cardiovascular: Reports chest pain and Reports leg edema Respiratory: Respiratory: Denies chest congestion Gastrointestinal: Gastrointestinal: Denies abdominal pain
--- NOTE | 2023-07-09 12:43 | WPDMODSED ---
Moderate Sedation Note-Pt Data Patient Data Diagnosis: Atrial fibrillation Present Complaint: atrial fibrillation Procedure to be performed/Plan: Electrical Cardioversion Moderate sedation Allergies Allergy/AdvReac Type Severity Reaction Status Date / Time No Known Allergies Allergy Mild Verified 02/13/23 09:17 Home Medications Medication Instructions Recorded Confirmed Type atorvastatin 40 mg tablet 40 mg PO DAILY 03/23/22 07/07/23 History aspirin 81 mg chewable tablet 81 mg PO DAILY@0800 #30 tabs 03/29/22 07/07/23 Rx (Children's Aspirin) furosemide 20 mg tablet (Lasix) 20 mg PO DAILY #30 tabs 03/29/22 07/07/23 Rx potassium chloride 10 mEq 10 meq PO DAILY@0800 #30 tabs 03/29/22 07/07/23 Rx tablet,extended release (K-Tab) sacubitril 24 mg-valsartan 26 mg 1 tab PO Q12HR #60 tabs 03/29/22 07/07/23 Rx tablet (Entresto) omeprazole 40 mg capsule,delayed 40 mg PO DAILY 1 month #30 caps 01/12/23 07/07/23 Rx release Current Medications: Active Medications Amiodarone HCl (Amiodarone Hcl 200 Mg Tablet) 200 mg PO BID [facility] Last Admin: 07/07/23 20:57 Dose: 200 mg Apixaban (Apixaban 5 Mg Tablet) 5 mg PO Q12HR [facility] Last Admin: 07/09/23 09:44 Dose: 5 mg Aspirin (Aspirin 81 Mg Enteric Tablet) 81 mg PO QAM [facility] Last Admin: 07/09/23 09:44 Dose: 81 mg Atorvastatin Calcium (Atorvastatin 40 Mg Tablet) 40 mg PO DAILY [facility] Last Admin: 07/09/23 09:44 Dose: 40 mg Metoprolol Tartrate (Metoprolol Tartrate Inj 5 Mg/5 Ml Vial) 5 mg IV PUSH Q6H PRN PRN Reason: tachycardia Sacubitril/Valsartan (Sacubitril/Valsartan 24-26 Mg Tablet) 1 tab PO Q12HR [facility] Last Admin: 07/09/23 09:44 Dose: 1 tab Sedation/Anesthesia: No previous sedation/anesthesia problems (including family history). [facility] Past Medical History Medical History MILKA (acute kidney injury) Atrial flutter by electrocardiogram CHF (congestive heart failure) Elevated troponin GERD (gastroesophageal reflux disease) Heart attack Persistent atrial fibrillation Surgical History Surgical History Hx of CABG S/P triple vessel bypass Family History Family History Father ALS (amyotrophic lateral sclerosis) Mother Hypertension Acute myocardial infarction CAD (coronary artery disease) Other Unknown family medical history Social History Social History Smoking status: Never smoker Alcohol intake: never Substance use: never Substance use type: does not use Lack of Transportation: No Lack of Food: Never True Current Housing: I Have Housing Concerned About Future Housing: No Difficulty Paying Gas/Electric Bills: No Difficulty Paying for Meds: No Currently Unemployed: No Education: High School Diploma/GED Difficulty w/ Childcare or Family Care: No Living arrangements: alone Gender identity (if verbalized by the patient): Male Spiritual care concerns: No Mod Sed Physical Exam Physical Exam Pre Procedural Exam: Normal: Appearance, Eyes, Ears, Nose, Neck, Throat, Airway, Lungs, Heart Size, Heart Rate, Neuro Exam, Abdomen and Skin and Variation: Heart Rhythm (Irregular irregular) and Extremities (Mild edema) Hours since solid foods: 12 Hours since liquid intake: 12 Mallampati Classification: class II Internal Medicine - PN: Obj Da Vital Signs Vital Signs: Vital Signs - 24 hr 07/08/23 14:00 07/08/23 15:44 07/08/23 16:00 Temperature 36.6 C Pulse Rate 75 69 Respiratory Rate 19 Blood Pressure 106/67 Pulse Oximetry 96 Oxygen Delivery Room Air 07/08/23 16:00 07/08/23 18:00 07/08/23 19:33 Temperature 36.7 C Pulse Rate 60 60 95 Respiratory Rate 98 H Blood Pressure 116/78 Pulse Oximetry 16 L Oxygen Delivery 07/09/23 00:00 07/08/23 20:00
--- NOTE | 2023-07-09 13:07 | ECG_ITS ---
Measurements Intervals [place] Rate: 40 P: OK: 0 QRS: 100 QRSD: 158 T: 14 QT: 545 QTc: 446 Interpretive Statements SLOW JUNCTIONAL RHYTHM ATRIAL PREMATURE COMPLEXES RIGHT BUNDLE BRANCH BLOCK ABNORMAL ECG COMPARED TO ECG 07/06/2023 22:51:21 SLOW JUNCTIONAL RHYTHM NOW PRESENT Electronically Signed On 07-09-2023 14:26:05 CDT by Steve De La Garza D.O.
--- NOTE | 2023-07-09 13:12 | WPDCARDVER ---
Cardioversion Cardioversion Date of procedure: 07/09/23 Procedure: Elective electrical cardioversion Moderate sedation Pre-op diagnosis: Atrial fibrillation Post-op diagnosis: Same Indications: Atrial fibrillation Description of procedure: After discussing risks, benefits alternate seizure patient agreeable via verbal and written informed consent. Risks discussed include , shocked into more problematic heart rhythm, adverse reaction to anesthesia, stroke, skin irritation or burn. Amiodarone had previously been stopped as his metoprolol was also previously stopped because of known sinus bradycardia when in sinus rhythm. After time-out was taken after establishing continues classroom monitor, pulse oxygenation serial blood pressure assessments, procedure was initiated instead Procedure start time 1:00 p.m. Procedure stop time 1:10 p.m. Complications: None Blood loss: None Medications given: 3 mg of Versed IV total given in divided dosages as well as 50 mcg of fentanyl IV. Atropine 0.5 mg IV x1 Medications were administered patient was monitored by Lidia Polanco RN After confirming atrial fibrillation, 150 joules of biphasic synchronized energy was used to restore sinus rhythm/sinus bradycardia. Patient does have baseline bradycardia but heart rate was in the lower 30s and 0.5 mg of atropine IV was given x1 with response heart rate into the upper 30s to 50s. Patient also has sleep apnea which also worsening bradycardia when awake, heart rate was more elevated Sedation: As detailed above a total of 3 mg of Versed IV as well as 50 mcg of fentanyl IV Findings: 1. Successful christian of sinus rhythm/sinus bradycardia using 150 joules of biphasic synchronized energy Conclusion: 1. Successful christian of sinus rhythm/sinus bradycardia using 150 joules of biphasic synchronized energy 2. Moderate sedation
--- NOTE | 2023-07-09 14:08 | SUR.PHASEII ---
Dr. Paiz at bedside to review clerical and office support workers and BP. Pts HR between 30-40 with PVCs and PACs. BP 88/57, discussing plan of care for patient placement. NNO at this time.
[2023-07-09] MEDS: GLUCAGON FOR INJ 1 MG VIAL IV PUSH (15:45)
--- NOTE | 2023-07-09 16:00 | WPDMODSED ---
Moderate Sedation Note-Pt Data Patient Data Diagnosis: Bradycardia Present Complaint: Bradycardia Procedure to be performed/Plan: Placement of temporary transvenous pacer Allergies Allergy/AdvReac Type Severity Reaction Status Date / Time No Known Allergies Allergy Mild Verified 02/13/23 09:17 Home Medications Medication Instructions Recorded Confirmed Type atorvastatin 40 mg tablet 40 mg PO DAILY 03/23/22 07/07/23 History aspirin 81 mg chewable tablet 81 mg PO DAILY@0800 #30 tabs 03/29/22 07/07/23 Rx (Children's Aspirin) furosemide 20 mg tablet (Lasix) 20 mg PO DAILY #30 tabs 03/29/22 07/07/23 Rx potassium chloride 10 mEq 10 meq PO DAILY@0800 #30 tabs 03/29/22 07/07/23 Rx tablet,extended release (K-Tab) sacubitril 24 mg-valsartan 26 mg 1 tab PO Q12HR #60 tabs 03/29/22 07/07/23 Rx tablet (Entresto) omeprazole 40 mg capsule,delayed 40 mg PO DAILY 1 month #30 caps 01/12/23 07/07/23 Rx release Current Medications: Active Medications Apixaban (Apixaban 5 Mg Tablet) [address] [facility] Last Admin: 07/09/23 09:44 Dose: 5 mg Aspirin (Aspirin 81 Mg Enteric Tablet) [address] [facility] Last Admin: 07/09/23 09:44 Dose: 81 mg Atorvastatin Calcium (Atorvastatin 40 Mg Tablet) [address] [facility] Last Admin: 07/09/23 09:44 Dose: 40 mg Sacubitril/Valsartan (Sacubitril/Valsartan 24-26 Mg Tablet) [address] [facility] Last Admin: 07/09/23 09:44 Dose: 1 tab Sedation/Anesthesia: No previous sedation/anesthesia problems (including family history). ON LICENSE OF [facility] Past Medical History Medical History MILKA (acute kidney injury) Atrial flutter by electrocardiogram CHF (congestive heart failure) Elevated troponin GERD (gastroesophageal reflux disease) Heart attack Persistent atrial fibrillation Surgical History Surgical History Hx of CABG S/P triple vessel bypass Family History Family History Father ALS (amyotrophic lateral sclerosis) Mother Hypertension Acute myocardial infarction CAD (coronary artery disease) Other Unknown family medical history Social History Social History Smoking status: Never smoker Alcohol intake: never Substance use: never Substance use type: does not use Lack of Transportation: No Lack of Food: Never True Current Housing: I Have Housing Concerned About Future Housing: No Difficulty Paying Gas/Electric Bills: No Difficulty Paying for Meds: No Currently Unemployed: No Education: High School Diploma/GED Difficulty w/ Childcare or Family Care: No Living arrangements: alone Gender identity (if verbalized by the patient): Male Spiritual care concerns: No Mod Sed Physical Exam Physical Exam Pre Procedural Exam: Normal: Appearance, Neuro Exam, Extremities and Skin and Variation: Heart Rate (Sinus bradycardia ) and Heart Rhythm (Sinus bradycardia ) Hours since solid foods: 15 Hours since liquid intake: 8 Mallampati Classification: class III Internal Medicine - PN: Obj Da Vital Signs Vital Signs: Vital Signs - 24 hr 07/08/23 18:00 07/08/23 19:33 07/09/23 00:00 Temperature 36.7 C 36.8 C Pulse Rate 60 95 81 Respiratory Rate 98 H 18 Blood Pressure 116/78 121/96 H Pulse Oximetry 16 L 97 Oxygen Delivery Oxygen Flow Rate 07/08/23 20:00 07/09/23 00:00 07/09/23 04:00 Temperature 36.8 C Pulse Rate 81 81 80 Respiratory Rate 18 18 18 Blood Pressure 106/57 L Pulse Oximetry 97 97 98 Oxygen Delivery Room Air Room Air Oxygen Flow Rate 07/09/23 04:00 07/08/23 20:00 07/08/23 22:00 Temperature Pulse Rate 80 82 95 Respiratory Rate 18 Blood Pressure Pulse Oximetry 98 Oxygen Delivery Room Air Oxygen Flow Rate 07/09/23 00:00 07/09/23 02:00 07/09/23 04:00 Temperature Pulse Rate 71
--- NOTE | 2023-07-09 16:05 | P.PCNCC_ITS ---
Cardiac Cath Procedure Note Date of procedure:: 07/09/23 Performing physician:: CATHETERIZATION LABORATORY REPORT Procedure Date: 07/09/2023 Professional Services Manager: Daniela Matias M.D., [facility]? Referring Physician: Leeroy Paiz M.D. ? Anesthesia: IV Sedation was not administered for this procedure. Procedure start time: 16:13 Procedure end time: 16:26 Total procedural time: 13 minutes RN For Procedure: Juliana Osuna Pre-op Diagnosis: Significant sinus / junctional bradycardia after cardioversion Post-op Diagnosis: Successful placement of temporary transvenous pacer Procedure(s): Ultrasound guided access of the right femoral vein Placement of temporary transvenous pacer Access Site: Right femoral vein Brief History and Clinical Indications: Patient is a 62 year old male who is referred for temporary transvenous pacer after significant sinus / junctional bradycardia after cardioversion All risks, benefits and alternatives to temporary transvenous pacer was discussed at length with the patient. Risk of complications including but not limited to bleeding, infection, arrhythmia, stroke, blood loss, groin hematoma, emergency surgery, and even were discussed with the patient and all questions were answered. The patient understood and wished to proceed. Time out called, patient name, date of , medical record number, allergies, procedure performed, identify Professional Services Manager, patient and staff member concurred with accurate data, procedure carried on. Description of Procedure: Informed consent signed and placed in the chart. Patient transferred to lab animal technologist room. Prepped and draped in usual sterile fashion. 2% lidocaine injected subcutaneously in right groin area. Right femoral vein was accessed using micropuncture technique under ultrasound guidance. 6-FR sheath placed. 5F pacer wire advanced into the RV. There was appropriate capture and pacing. Ventricular rate set at 40bpm. Loses capture at 0.4mA. Sheath was sutured in place. ? Assessment: Successful placement of temporary transvenous pacer Post Operative Condition: Stable No significant blood loss Disposition: ICU Plan: The patient will be transferred to the ICU The above findings were discussed with the referring physician. Obtain daily CXR while pacer is in place to confirm position. Daniela Matias M.D. Interventional Cardiology
[2023-07-09] MEDS: SODIUM CHLORIDE 0.9% IV 500 ML IV CONT ×2 (20:25→21:30)
--- NOTE | 2023-07-09 21:05 | PC.NURSE ---
Addendum entered by Marc Quintero RN 07/10/23 00:01: This note was saved by mistake and was supposed to remain as a draft. Any grammatical errors have not had a chance to be rectified. Dr. Bansal was on the phone with this RN during the change to the pacer settings and the time of the phone call was 2038. Dr. Espinoza was called at 1999. Dr. Ruiz was spoken to in person. The general content of the note is correct. The last sentence should read that an attempt was made unsuccessfully to place a central line by Dr. Ruiz. Patient's BP is improving with new pacer settings. See chart for labs and chest XR. Original Note: Patient has had concerning BP since around 1829 with Maps running between 55-65 mostly since then, maliha. Dr. Espinoza was notified along with the hospitalist Dr. Ruiz. 500 ml bolus was ordered and Oroskar initially prepared for central line placement. This RN then called Dr. Bansal who is the on-call partnership development manager who order labs and a change to the temporary pacemaker settings. Per Dr. Bansal check BMP and Mg and assess for the need for electrolyte replacement and/or continuous fluids. The pacemaker settings were changed to HR 60 and V-Output changed to 3.5 ma. Currently attempting lab draw all other orders have been carried out. The patient's BP improved after changingand Dr. Ruiz
[2023-07-09] MEDS: SODIUM CHLORIDE 0.9% IV 250 ML 999 ML IV CONT (22:33)
[2023-07-09 23:23] LABS: Anion Gap 15 mmol/L (8-16); Blood Urea Nitrogen 21 mg/dL (9-20); Calcium 8.8 mg/dL (8.4-10.2); Carbon Dioxide 13 mmol/L (22-30); Chloride 113 mmol/L (98-107); Estimated CRCL calculation 67 ml/min; Estimated Glomerular Filt Rate 48; Glucose 83 mg/dL (65-110); Magnesium 2.1 mg/dL (1.6-2.3); Potassium 5.1 mmol/L (3.4-5.0); Sodium 141 mmol/L (137-145)
[2023-07-09] MEDS: OXYMETAZOLINE HCL 0.05% NAS 15 ML BTL (*BKC) 2 SPRAY NASAL (23:54)
[2023-07-09] MEDS: MORPHINE SULFATE (*CRX) 2 MG/ML INJ IV PUSH (23:58)
[2023-07-10] VITALS (11 sets, daily range): BP systolic 116–134; BP diastolic 70–98; PULSE 43–61; RESP 18–22; TEMP 36.2–37.1; O2SAT 84–100
[2023-07-10 04:47] LABS: Anion Gap 5 mmol/L (8-16); Blood Urea Nitrogen 22 mg/dL (9-20); Calcium 8.3 mg/dL (8.4-10.2); Carbon Dioxide 21 mmol/L (22-30); Chloride 109 mmol/L (98-107); Estimated CRCL calculation 77 ml/min; Estimated Glomerular Filt Rate 56; Glucose 84 mg/dL (65-110); Potassium 4.1 mmol/L (3.4-5.0); Sodium 135 mmol/L (137-145)
[2023-07-10] MEDS: MORPHINE SULFATE (*CRX) 2 MG/ML INJ IV PUSH ×2 (07:21→10:01)
--- NOTE | 2023-07-10 08:34 | PM.PNCARD ---
Progress Note: A&P Assessment and Plan (1) Chronic systolic heart failure: Code(s): I50.22 - Chronic systolic (congestive) heart failure Status: Acute (2) A-fib: Code(s): I48.91 - Unspecified atrial fibrillation Status: Acute Plan Will leave the temporary pacing wire in place for a little while this morning backup heart rate of 30. Observe his rhythm for the next couple of hours. If he has no further significant [place] arrhythmias will then pull the transvenous wire. This patient appears to need a device implantation for effective management of his rhythm and his cardiomyopathy. Given his low ejection fraction that would consist of ICD implantation. If his baseline rhythm is stable enough following washout of amiodarone and beta-blockers this does not necessarily have to mandate transfer for electrophysiology care. For the moment it appears his heart rate is improving as the medications are washing out. Jt Benoit MD [facility] Subjective Date/time seen: Date of service: 07/10/23 08:34 Interval history: Follow-up visit in this 62-year-old man with: Coronary artery disease with ischemic cardiomyopathy status post CABG and paroxysmal atrial fibrillation. Patient admitted with an episode of recurrent atrial fibrillation with decompensated CHF. Ejection fraction found again to be very low in AFib. Patient was initially treated with beta-blockers and amiodarone and electrically converted to sinus rhythm yesterday. He was very bradycardic following cardioversion and a temporary transvenous wire was placed last evening. The heart rate this morning is mid 40s with sinus rhythm alternating between junctional rhythm some runs of AIVR are also noted. He is asymptomatic Exam Narrative: Awake alert oriented appears to be in no acute distress and appears stated Const: General: comfortable and no acute distress; No confusion Orientation/consciousness: No confusion HENMT: Face/Nose/Sinus: Normal nares present Mouth: Yes moist mucous membranes Eyes: General: appearance normal, both eyes and all related structures Sclera: sclerae normal Neck: Neck: supple and no JVD Carotids: no bruits Chest: Other: No reproducible chest wall pain to palpation Resp: Effort & Inspection: normal respiratory effort Auscultation: clear to auscultation bilaterally Cardio: Rate: regular rate Rhythm: abnormal rhythm irregularly irregular Heart sounds: no murmurs GI: Inspection: non-distended Auscultation: normal bowel sounds Skin: General skin exam: normal color Neuro: General: No confusion Cranial nerves: Yes Normal hearing present Speech: normal speech Sensory Exam: normal sensation Extrem: General: edema Other: Very mild lower extremity edema bilaterally Psych: Mental Status: mental status grossly normal Affect: normal affect Objective Data Vital Signs Vital Signs: Vital Signs - 24 hr 07/09/23 10:00 07/09/23 11:20 07/09/23 13:20 Temperature 36.3 C L Pulse Rate 83 66 40 L Respiratory Rate 16 19 Blood Pressure 99/60 L 106/62 Pulse Oximetry 98 98 Oxygen Delivery Room Air Oxygen Flow Rate 07/09/23 13:00 07/09/23 13:05 07/09/23 13:10 Temperature Pulse Rate 97 85 37 L Respiratory Rate 21 H 20 24 H Blood Pressure 131/92 H 100/69 127/69 Pulse Oximetry 99 97 95 Oxygen Delivery Nasal Cannula Nasal Cannula Nasal Cannula Oxygen Flow Rate 3 3 3 07/09/23 13:30 07/09/23 13:45 07/09/23 14:00 Temperature Pulse Rate 42 L 39 L 34 L Respiratory Rate 20 22 H 18 Blood Pressure 98/65 L 90/58 L 88/57 L Pulse Oximetry 97 97 97 Oxygen Delivery Room Air Room Air Room Air Oxygen Flow Rate 07/09/23 14:15 07/09/23 14:15 07/09/23 12:00 Temperature Pulse Rate 34 L 72 Respiratory Rate 16 Blood Pressure 84/53 L Pulse Oximetry 98 98 Oxygen Delivery Room Air Room Air Oxygen Flow Rate 07/09/23 12:00 07/09/23 14:30 07/09/23 14:45 Temperature
--- NOTE | 2023-07-10 08:36 | PC.NURSE ---
Dr. Benoit and Dr. Espinoza to bedside, rate reduced to 30 beats/minute.
[2023-07-10] MEDS: SACUBITRIL/VALSARTAN 24-26 MG TABLET 1 TAB PO (08:42)
[2023-07-10] MEDS: ATORVASTATIN 40 MG TABLET PO (08:43)
[2023-07-10] MEDS: ASPIRIN 81 MG ENTERIC TABLET PO (08:43)
[2023-07-10] MEDS: APIXABAN 5 MG TABLET PO ×2 (08:43→20:29)
--- NOTE | 2023-07-10 09:46 | WPDCNINT ---
Assessment and Plan Assessment and plan (1) Bradycardia: Code(s): R00.1 - Bradycardia, unspecified Status: Acute Assessment and Plan: Likely related to cardioversion, amiodarone and or metoprolol. Temporary pacemaker was inserted on 07/09/2023 -temporary pacing rate has been decreased to 30 patient's intrinsic rate is 40 to 50s bmp (this is where he normally lives.) -cardiology following the patient, will keep the pacing rate at 30 for couple of hours, if no significant [place] arrhythmias occur, transvenous pacer will be removed. -patient may require a device implantation for his cardiomyopathy, likely ICD due to his low EF (2) A-fib: Code(s): I48.91 - Unspecified atrial fibrillation Status: Acute Assessment and Plan: Currently in sinus rhythm, continue to monitor (3) Chronic systolic heart failure: Code(s): I50.22 - Chronic systolic (congestive) heart failure Status: Acute Assessment and Plan: Chronic systolic heart failure, continue apixaban, Entresto, aspirin and Lipitor (4) Hypotension: Code(s): I95.9 - Hypotension, unspecified Status: Acute Assessment and Plan: Resolved, continue to monitor Plan DVT prophylaxis: Apixaban Stress ulcer prophylaxis: Not indicated Nutrition: Currently NPO, will start heart healthy diet when he is able to sit up Code Status: Full code Critical Care Time Spent: 49 minutes Discussed with cardiology. Due to a high probability of clinically significant, life threatening deterioration, the patient required my highest level of preparedness to intervene emergently and I personally spent this critical care time directly and personally managing the patient. This critical care time included obtaining a history; examining the patient; pulse oximetry; ordering and review of studies; arranging urgent treatment with development of a management plan; evaluation of patient's response to treatment; frequent reassessment; and discussions with other providers. It was exclusive of separately billable procedures and treating other patients and teaching time. Please see Assessment and Plan section and the rest of the note for further information on patient assessment and treatment This dictation may have been done utilizing a voice recognition system. Attempts have been made to correct errors. However, there may be uncorrected grammatical, spelling, and recognitions errors present. Fire Eater Consult Note Consult date: 07/10/23 Reason for consult: Bradycardia bradycardia post cardioversion for AFib, temporary pacemaker placement, hypotension HPI: Papa Fields is a 62 year old male with past medical history of acute kidney injury, atrial flutter/fibrillation status post Maze procedure and excision of the left atrial appendage in 2019, CHF, CAD status post his CABG in 2019, cardiomyopathy, GERD, persistent atrial fibrillation presented the ED with bilateral upper arm, neck and chest pain. Patient found to be in atrial fibrillation with rapid ventricular response, patient was started on diltiazem in the ER and therapeutic Lovenox. His symptoms did not improve on the diltiazem, patient was placed on amiodarone infusion and metoprolol. He continued to be in atrial fibrillation. Cardiology was consulted and evaluated him in the intermediate Unit. Patient was also noted to have lower extremity swellings which had worsened over the last couple of weeks. 07/09: Cardioversion was performed: He did convert to sinus rhythm with bradycardic in the 20s and 30s with hypotension, temporary venous pacemaker was inserted at rate of 40 bpm 07/10: Patient seen examined the ICU, is awake, alert, oriented. Complains of discomfort laying flat in bed. Overnight patient was hypotensive, was given IV fluid bolus, cardiology increased the rate on the pacemaker to 60 bpm with improvement in his blood pressures. Patient is afebrile, urine output has been adequate,
--- NOTE | 2023-07-10 11:52 | PC.NURSE ---
Dr. Alamo updated Dr. Benoit on patient heart rhythm.
--- NOTE | 2023-07-10 12:10 | PC.NURSE ---
Dr. Benoit to bedside.
[2023-07-10 12:11] LABS: Glucose Point of Care 74 mg/dl (65-105)
--- NOTE | 2023-07-10 16:36 | PC.NURSE ---
Updated [facility] call center on patient condition and vitals.
[2023-07-10 18:18] LABS: Glucose Point of Care 75 mg/dl (65-105)
--- NOTE | 2023-07-10 22:00 | PC.NURSE ---
Pt to transfer to [facility] room [id number] ([phone]), for electrophysiology evaluation. Dr. Guzman accepting physician. Report called to AMADEO Lyles. [facility] ETA [id number]. Pt's family aware of transfer.
--- NOTE | 2023-07-10 22:32 | PC.NURSE ---
Pt transferred to [facility] via [facility].
--- NOTE | 2023-07-11 11:21 | PM.TDS ---
Transfer Discharge Sum: Prov Provider Date of admission: 07/07/23 07:48 Primary care physician: Holger Whitley DO Admitting clinician: Li Zuniga DO Consults: 07/09/23 Consult to Physician Routine Comment: Consulting Provider: Nuno Paiz call center nurse/MD group to consult: Cardiology. Reason for consultation: dc cardioversion. uncontrolled afib. Has provider been notified: Yes DS: Admitting Diagnosis Discharge Date 07/10/23 Admitting Diagnosis AFib Transfer Discharge Sum: Med Medications Active and Home Medications: Home Medications atorvastatin 40 mg tablet 40 mg PO DAILY 03/23/22 [History Confirmed 07/07/23] aspirin 81 mg chewable tablet (Children's Aspirin) 81 mg PO DAILY@0800 #30 tabs 03/29/22 [Rx Confirmed 07/07/23] furosemide 20 mg tablet (Lasix) 20 mg PO DAILY #30 tabs 03/29/22 [Rx Confirmed 07/07/23] potassium chloride 10 mEq tablet,extended release (K-Tab) 10 meq PO DAILY@0800 #30 tabs 03/29/22 [Rx Confirmed 07/07/23] sacubitril 24 mg-valsartan 26 mg tablet (Entresto) 1 tab PO Q12HR #60 tabs 03/29/22 [Rx Confirmed 07/07/23] omeprazole 40 mg capsule,delayed release 40 mg PO DAILY 1 month #30 caps 01/12/23 [Rx Confirmed 07/07/23] Transfer Discharge Sum: Hosp Hospital Course Hospital course: Papa Fields is a 62 year old male who presented to the ER with EKG with RVR started on diltiazem and therapeutic Lovenox. Patient symptoms did wanted was placed on amiodarone infusion and metoprolol. Cardiology was consulted and underwent cardioversion with conversion to sinus rhythm but went bradycardic and 20s to 30s with hypotension. Which temporary venous pacemaker was inserted. He was then subsequently transferred to ICU for further care. Patient was subsequently transferred to [facility] for EP evaluation. He also has underlying cardiomyopathy and hence will need AICD placement. I did not see the patient but was assigned to me on the day of transfer Time Spent with Patient Time attestation: Total time spent providing and/or coordinating transfer services: 5 minutes for documentation DS: Data Data Completed and Pending Labs on day of discharge: Labs from last 24 hours 07/10/23 07/10/23 18:04 12:08 POC Capillary Glucose 75 74 Imaging Radiologist's impression: ITS Impressions Chest X-Ray 07/06/23 21:19 Impression: 1: Bilateral airspace disease, left greater than right. These findings are not significantly changed from prior examination and may reflect chronic asymmetric scarring/atelectasis or atypical pneumonia. Chest X-Ray 07/09/23 23:50 Impression: 1: Cardiomegaly with mild interstitial edema. 2: Small left pleural effusion.
--- NOTE | 2023-07-19 19:07 | PM.IMPN ---
Subjective Date/time seen: 07/09/23. From 7-9 pm. When I was in the ICU to see my last 2 patients around 6:30 pm, I was asked by one of the ICU nurses about assistance with Mr. Fields in the ICU. This patient was my patient on this today, i.e. he was on my census. I had taken care of him earlier that day and he was scheduled for a cardioversion procedure by Dr. Leeroy Paiz for his afib which was not able to be chemically converted over the past 2 days with diltiazem and amiodarone infusion. His main nurse in the ICU told me the pt was hypotensive. I assessed the pt and saw that he was in complete heart block and his pacemaker was firing at 40 bpm, with a BP around 80's/40's mmHg, with a MAP in the low 50's mmHg. This blood pressure is not sustainable with life. The MAP needs to be at least 60-65 mm Hg, on the lower end if the pt has an appropriate diastolic blood pressure or appropriately calculated coronary perfusion pressure.? First, I told the ICU to call the overnight research associate policy to increase his pacemaker settings to raise the BP. This worked partially. The overnight research associate policy raised the pacemaker settings to 60, and the blood pressure increased, but then fluctuated between 90-100's, SBP, and 60's SBP. Some MAP's taken were concerning. Hence I discussed with the ICU nurse about different steps that could be taken. Since the pt was technically in cardiogenic shock/in complete heart block with a temporary pacemaker, I suggested dopamine. However, this medicine is supposed to be given through a central line. It can be given temporarily through a peripheral line.? I was on the fence about this and took a few minutes to assess this pt's blood pressure. However, it did not rise as much as expected to good normotensive numbers. In addition, the pt still had not made any urine, which is a sign of inadequate perfusion and shock. Hence, I made the decision to place a central line. My backup plan was to do peripheral dopamine infusion and have this run overnight if the pt needed it.? I prepped the pt for a R IJ central line, prepared and checked the ultrasound machine, checked for visualization of the IVC by ultrasound, chloroprepped the pt's central line site, and obtained and set up the central line kit in a sterile field. I did a time-out as well with the pt. The pt's main nurse was my bedside food and beverage assistant manager. After injection of local lidocaine, I attempted insertion of the central line into the R-IJ, but I was not able to get blood return into the main needle. The blood was very coagulopathic and slow moving, presumably because of the pt's blood pressure and also perhaps any medications that may have been given during the cardioversion procedure during the day. After a few passes into the R-IJ, I was not successful getting flash blood return into the main needle. I then told the nurse and pt that we were abandoning the procedure, and we would be using dopamine infusion if necessary through the peripheral line to raise the pt's blood pressure. At the conclusion of this unsuccessful procedure, first, I held direct pressure on the insertion site for at least 5 min to make sure that there was complete hemostasis. Then I cleaned up the entire station, and threw away all the equipment that was sharp in the sharps container, and any blood stained garb into the biohazard container. Then I ordered a stat CXR to make sure the pt did not have a pneumothorax. After the XR tech came and performed the CXR, I found the number of the overnight radiologist (Dr. Jd Murphy). He read both XR's taken and confirmed to me over the phone there was no pneumothorax. While this process was occurring, I called the overnight pharmacist and re-affirmed that dopamine infusion would be given temporarily overnight through the peripheral line. He confirmed that this would be ok, as long as it was temporary. I let him know that the ICU doctor would place a central line in the morning if necessary. T
== END 2023-07-10 22:32 | disposition short-term general hospital (02) | DRG 177 ==
LOC: ANHED 07-07 00:30 → ANHIMU 07-07 01:02 → ANHICU 07-09 16:49
PROVIDERS: Internal Medicine; Internal Medicine Cardiovascular Disease; Admitting Provider Internal Medicine; Emergency Provider Emergency Medicine; PCP Internal Medicine; Visit Provider Internal Medicine
PROC: 5A2204Z Restoration of Cardiac Rhythm, Single (ICD-10-PCS; principal; 2023-07-09 12:15)
PROC: 02HK3JZ Insertion of Pacemaker Lead into Right Ventricle, Percutaneous Approach (ICD-10-PCS; CPT 33210; principal; 2023-07-09 16:00)
DX: I48.19 Other persistent atrial fibrillation (principal); I24.89 Other forms of acute ischemic heart disease; R00.1 Bradycardia, unspecified; I11.0 Hypertensive heart disease with heart failure; I50.22 Chronic systolic (congestive) heart failure; I95.9 Hypotension, unspecified; I25.5 Ischemic cardiomyopathy; E86.0 Dehydration; K29.70 Gastritis, unspecified, without bleeding; I25.10 Atherosclerotic heart disease of native coronary artery without angina pectoris; K21.9 Gastro-esophageal reflux disease without esophagitis; K44.9 Diaphragmatic hernia without obstruction or gangrene; Z95.1 Presence of aortocoronary bypass graft; I25.2 Old myocardial infarction; Z79.82 Long term (current) use of aspirin
CPT/HCPCS: 33210; 36415; 71045; 71046; 80048; 80053; 82948; 83690; 83735; 83880; 84484; 85025; 85610; 85730; 92960; 93005; 96372; 96374; 99285; A9270; C1751; C1894; C8929; J0282; J1610; J1644; J1650; J2250; J2270; J2405; J3010; J7030; J7040; J7050; Q9957

== ENCOUNTER 2023-08-03 12:32 | Outpatient (CLI) | payer OTHER, SELFPAY ==
--- NOTE | ~2023-08-03 | US_ITS ---
EXAMINATION: US venous doppler UE DATE: 08/03/2023 14:08 INDICATION: Pacemaker placed 2 weeks ago. TECHNIQUE: Belle scale images with and without compression and Doppler images of the left upper extrem ity veins were obtained. COMPARISON: None. FINDINGS: The left internal jugular vein, subclavian vein, axillary vein, brachial veins, radial vein, and ulna r vein are patent. There is superficial venous thrombosis of the left basilic and cephalic veins. IMPRESSION: 1. Superficial venous thrombosis of the left basilic and cephalic veins. Reviewed, dictated and finalized at location B. COORDINATOR
== END 2023-08-03 12:33 | disposition home or self-care (01) ==
LOC: ANHIMG 12:33
PROVIDERS: PCP Internal Medicine; Visit Provider Clinical Nurse Specialist
DX: M79.89 Other specified soft tissue disorders (principal); I82.622 Acute embolism and thrombosis of deep veins of left upper extremity
CPT/HCPCS: 93971

== ENCOUNTER 2024-07-26 18:06 | Emergency (ER) | payer OTHER, SELFPAY ==
--- NOTE | ~2024-07-26 | XR_ITS ---
CHEST RADIOGRAPH, PA AND LATERAL CLINICAL HISTORY: palpitations. HX TRIPLE BYPASS . COMPARISON: 07/06/2023 TECHNIQUE: PA and lateral views of the chest. FINDINGS Sternal wires and mediastinal clips are identified, the wires are midline and intact. The left mid lung is partially obscured due to AICD generator. Wires project over the right atrium, coronary sinus and right ventricle. The remainder of the cardiomediastinal silhouette is otherwise unremarkable. Blunting of the left costophrenic sulcus, unchanged from prior. The right hemithorax is clear. Visualized osseous structures and soft tissues are unremarkable. IMPRESSION: Small left-sided pleural effusion without focal infiltrate Reviewed, dictated and finalized at location A. ER FRAMER
--- NOTE | 2024-07-26 18:07 | ECG_ITS ---
Test Date: 2024-07-26 18:20:56 Measurements Intervals [place] Rate: 124 P: 0 [place]: 0 QRS: 74 QRSD: 158 T: 0 QT: 362 QTc: 521 Interpretive Statements ATRIAL FLUTTER/TACHYCARDIA WITH RAPID VENTRICULAR RESPONSE RIGHT BUNDLE BRANCH BLOCK CONSIDER INFERIOR INFARCT, AGE INDETERMINATE ABNORMAL ECG No previous ECG available for comparison Electronically Signed On 07-26-2024 20:33:23 DIRECTOR OF DIAGNOSTIC IMAGING by Steve De La Garza D.O.
[2024-07-26 18:47] VITALS: BP 116/98; PULSE 125; RESP 16; TEMP 36.7; O2SAT 98
[2024-07-26 18:48] LABS: Basophils Absolute Auto 0.1 K/mm3 (0.0-0.1); Basophils Percent Auto 0.8 % (0.2-1.2); Eosinophils Absolute Auto 0.3 K/mm3 (0-0.3); Hematocrit 41.7 % (42.0-52.0); Hemoglobin 14.3 g/dL (14.0-18.0); Immature Granulocyte Absolute 0.01 K/mm3 (0.00-0.031); Immature Granulocyte Percent A 0.2 % (0-0.5); Lymphocytes Absolute Auto 1.34 K/mm3 (0.9-3.2); Mean Corpuscular HGB Conc 34.3 g/dl (32-36); Mean Corpuscular Hemoglobin 31.8 pg (26-34); Mean Corpuscular Volume 92.9 fl (80-100); Mean Platelet Volume 11.1 fl (7.4-10.4); Monocytes Absolute Auto 0.6 K/mm3 (0.1-0.6); Monocytes Percent Auto 9.3 % (2.6-8.5); Neutrophils Absolute Auto 4.1 K/mm3 (1.3-6.7); Neutrophils Percent Auto 63.7 % (45.5-73.1); Platelet Count Result 146 k/mm3 (150-375); Red Blood Count 4.49 M/mm3 (4.6-6.20); White Blood Count 6.4 K/mm3 (4.5-10.0)
[2024-07-26 18:54] VITALS: PULSE 125
[2024-07-26] MEDS: ASPIRIN 81 MG CHEWABLE TABLET 324 MG PO (18:54)
[2024-07-26] MEDS: METOPROLOL TARTRATE INJ 5 MG/5 ML VIAL IV PUSH ×2 (18:54→19:31)
[2024-07-26 18:57] LABS: Alanine Aminotransferase 39 U/L (6-50); Albumin Level 4.1 g/dL (3.5-5.1); Alkaline Phosphatase 85 U/L (38-126); Anion Gap 6 mmol/L (4-12); Aspartate Amino Transferase 37 U/L (17-59); Blood Urea Nitrogen 23 mg/dL (9-20); Calcium 8.8 mg/dL (8.4-10.2); Carbon Dioxide 27 mmol/L (22-30); Chloride 104 mmol/L (98-107); Estimated Glomerular Filt Rate 56; Glucose 106 mg/dL (65-110); Lipase 149 U/L (23-300); Potassium 3.8 mmol/L (3.4-5.0); Sodium 137 mmol/L (137-145)
[2024-07-26 18:59] LABS: INR 1.1; Prothrombin Time 14.5 Seconds (11.1-14.7)
[2024-07-26 19:00] LABS: Partial Thromboplastin Time 27.1 Seconds (22.3-36.8)
--- NOTE | 2024-07-26 19:06 | ED_ITS ---
HPI - Arrhythmia/Palpitations General Chief Complaint: Arrhythmia/Palpitations Stated Complaint: I might be having a heart attack Time Seen by Provider: 07/26/24 18:12 History of Present Illness HPI narrative: Patient is a 63-year-old male who presents ER with heart palpitations. Re ports he got home this evening and received a phone call from the pacemaker company telling him that his heart rate was too high. He has been having no chest pain. No racing heart. No shortness of breath. Reports he has had a cold over last couple days in took some cold medicine today at 11:30 a.m.. It was [place]Bl[place] plus severe cold and flu. Patient takes metoprolol 25 mg daily. He did not bring the OTC medicine with him but they Google search shows that it likely consent pains phenylephrine. Related Data Home Medications Medication Instructions Recorded Confirmed atorvastatin 40 mg tablet 40 mg PO DAILY 03/23/22 01/13/24 apixaban 5 mg tablet (Eliquis) 5 mg PO BID 08/03/23 01/13/24 metoprolol succinate 25 mg 25 mg PO DAILY 08/03/23 01/13/24 tablet,extended release 24 hr kdlhnypcabkk-wpb-pheql acid-vit 1 tablet PO DAILY 08/03/23 01/13/24 K-lycop 400 mcg-20 mcg-370 mcg tablet (Men's 50 Plus Multivitamin) Allergies Allergy/AdvReac Type Severity Reaction Status Date / Time No Known Allergies Allergy Mild Verified 07/26/24 18:06 Review of Systems Review of Systems: All systems reviewed & are unremarkable except as noted in HPI and below Constitutional: Constitutional: Reports no additional constitutional complaints Cardiovascular: Cardiovascular: Reports no additional cardiovascular complaints Respiratory: Respiratory: Reports no additional respiratory complaints Gastrointestinal: Gastrointestinal: Reports no additional gastrointestinal complaints Musculoskeletal: Musculoskeletal: Reports no additional musculoskeletal complaints [facility] Past Medical History Medical History Acute exacerbation of CHF (congestive heart failure) Acute systolic heart failure Adenomatous colon polyp MILKA (acute kidney injury) Atrial flutter by electrocardiogram Bradycardia Chest pain CHF (congestive heart failure) DVT prophylaxis Dysphagia Elevated troponin GERD (gastroesophageal reflux disease) Heart attack Hyperbilirubinemia Hypotension Medication monitoring encounter Persistent atrial fibrillation ST elevation (STEMI) myocardial infarction Surgical History Surgical History Hx of CABG S/P triple vessel bypass Family History Family History Father ALS (amyotrophic lateral sclerosis) Mother Hypertension Acute myocardial infarction CAD (coronary artery disease) Other Unknown family medical history Social History Social History Smoking status: Never smoker Alcohol intake: never Substance use: never Substance use type: does not use Lack of Transportation: No Lack of Food: Never True Current Housing: I Have Housing Concerned About Future Housing: No Difficulty Paying Gas/Electric Bills: No Difficulty Paying for Meds: No Currently Unemployed: No Education: High School Diploma/GED Difficulty w/ Childcare or Family Care: No Living arrangements: alone Gender identity (if verbalized by the patient): Male Spiritual care concerns: No Exam Narrative: GENERAL: Well-appearing, well-nourished, and in no acute distress. HEAD: Normocephalic, atraumatic. ENT: Mucous membranes moist. NECK: Supple. CHEST: Clear to auscultation. No respiratory distress. HEART: Tachycardic and regular. Normal peripheral pulses. ABDOMEN: Soft, nontender, nondistended. EXTREMITIES: Normal range of motion. No edema. SKIN: Warm, dry, no rash. NEURO: Alert and oriented x3. PSYCH: Normal mood and affect. Course Course Emergency Course: Discussed with Dr. Paiz, your patient received metoprolol 10 mg IV. Heart rate is better controlled in the 90s. Has occasional pacer spikes. Patient is asymptomatic. Symptoms are likely from taking a stimulant cold medication. it is recommended to place the patient on apixaban short term since he was in flutter has a chadsVasc2 score of 3. Patient verbalized understanding treatment plan. Discharge home. Vital Signs Vital signs: Vital Signs Temperature 98.1 F 07/26/24 18:47 Pulse Rate 125 H 07/26/24 18:47 Respiratory Rate 16 07/26/24 18:47 Blood Pressure 116/98 H 07/26/24 18:47 Pulse Oximetry 98 07/26/24 18:47 Temperature 98.1 F 07/26/24 18:47 Pulse Rate 128 H 07/26/24 19:31 Respiratory Rate 19 07/26/24 19:21 Blood Pressure 116/98 H 07/26/24 18:47 Pulse Oximetry 100 07/26/24 19:21 MDM - Arrhythmia/Palpitations Lab Data 07/26/24 18:43 07/26/24 18:43 Labs: Lab Results 07/26/24 Range/Units 18:43 WBC 6.4 (4.5-10.0) K/mm3 RBC 4.49 L (4.6-6.20) M/mm3 Hgb 14.3 (14.0-18.0) g/dL Hct 41.7 L (42.0-52.0) % MCV 92.9 (80-100) fl MCH 31.8 (26-34) pg MCHC 34.3 (32-36) g/dl RDW 13.0 (11.5-14.5) % Plt Count 146 L (150-375) k/mm3 MPV 11.1 H (7.4-10.4) fl Immature Gran % (Auto) 0.2 (0-0.5) % Neut % (Auto) 63.7 (45.5-73.1) % Lymph % (Auto) 21.0 (18.3-44.2) % [place] % (Auto) 9.3 H (2.6-8.5) % Eos % (Auto) 5.0 H (0-4.4) % Baso % (Auto) 0.8 (0.2-1.2) % Lymph # (Auto) 1.34 (0.9-3.2) K/mm3 [place] # (Auto) 0.6 (0.1-0.6) K/mm3 Eos # (Auto) 0.3 (0-0.3) K/mm3 Baso # (Auto) 0.1 (0.0-0.1) K/mm3 Abs Immat Gran (auto) 0.01 (0.00-0.031) K/mm3 Absolute Neuts (auto) 4.1 (1.3-6.7) K/mm3 Absolute Nucleated RBC 0.000 (0.0-0.012) K/mm3 Nucleated RBC % 0.0 (0.0-0.2) % PT 14.5 (11.1-14.7) Seconds INR 1.1 APTT 27.1 (22.3-36.8) Seconds Sodium 137 (137-145) mmol/L Potassium 3.8 (3.4-5.0) mmol/L Chloride 104 (98-107) mmol/L Carbon Dioxide 27 (22-30) mmol/L Anion Gap 6 (4-12) mmol/L BUN 23 H (9-20) mg/dL Creatinine 1.30 (0.7-1.3) mg/dL Estim Creat Clear Calc Not Reportable Estimated GFR 56 L (59 - ) Glucose 106 (65-110) mg/dL Calcium 8.8 (8.4-10.2) mg/dL Total Bilirubin 2.0 H (0.2-1.3) mg/dL AST 37 (17-59) U/L ALT 39 (6-50) U/L Alkaline Phosphatase 85 (38-126) U/L Troponin I < 0.012 (0.000-0.034) ng/mL Total Protein 7.0 (6.3-8.2) g/dL Albumin 4.1 (3.5-5.1) g/dL Lipase 149 (23-300) U/L Imaging Data Radiologist's impression: ITS Impressions Chest X-Ray 07/26/24 18:47 IMPRESSION: Small left-sided pleural effusion without focal infiltrate ECG Data EKG #1: ECG completion date: 07/26/24 ECG completion time: 18:20 EKG Interpretation: tachycardia (124), atrial flutter, RBBB and NL axis Discharge Plan Discharge Clinical Impression: Atrial flutter with rapid ventricular response Patient Disposition: Home, Self-Care Condition: Stable Instructions: Atrial Flutter (ED) Additional Instructions: You had an elevated heart rate related to cold medicine that you are taking. Discontinue the cold medicine. Continue your home metoprolol. Your being restarted on apixaban which is a blood thinner. Follow-up with your timing adjuster. Prescriptions: New Eliquis 5 mg tablet 5 mg PO BID Qty: 20 0RF No Action Men's 50 Plus Multivitamin 400-20-370 mcg tablet 1 tablet PO DAILY metoprolol succinate 25 mg tablet extended release 24 hr 25 mg PO DAILY Eliquis 5 mg tablet 5 mg PO BID omeprazole 40 mg capsule,delayed release(DR/EC) 40 mg PO DAILY 90 Days Qty: 90 3RF atorvastatin 40 mg tablet 40 mg PO DAILY potassium chloride [K-Tab] 10 mEq Tablet Extended Release 10 meq PO DAILY@0800 Qty: 30 0RF aspirin [Children's Aspirin] 81 mg Tablet,Chewable 81 mg PO DAILY@0800 Qty: 30 0RF Entresto 24-26 mg Tablet 1 tab PO Q12HR Qty: 60 0RF furosemide [Lasix] 20 mg tablet 20 mg PO DAILY Qty: 30 0RF Follow-up/Referrals: Jt Benoit MD [Physician] - 3 Days Holger Whitley DO [Primary Care Provider] - 1 Week
[2024-07-26 19:10] LABS: Troponin I < 0.012 ng/mL (0.000-0.034)
--- NOTE | 2024-07-26 19:10 | ECG_ITS ---
Test Date: 2024-07-26 19:14:55 Measurements Intervals [place] Rate: 103 P: 0 NE: 0 QRS: 64 QRSD: 152 T: -3 QT: 374 QTc: 491 Interpretive Statements ATRIAL FLUTTER/TACHYCARDIA WITH RAPID VENTRICULAR RESPONSE WITH VARIABLE BLOCK ELECTRONIC VENTRICULAR PACEMAKER COMPLEXES RIGHT BUNDLE BRANCH BLOCK CONSIDER INFERIOR INFARCT, AGE INDETERMINATE BASELINE ARTIFACT- I, III, AVL ABNORMAL ECG Compared to ECG 07/26/2024 18:20:56 NO SIGNIFICANT CHANGE Electronically Signed On 07-26-2024 20:27:30 METER MAKER by Steve De La Garza D.O.
[2024-07-26 19:21] VITALS: PULSE 128; RESP 19; O2SAT 100
[2024-07-26 19:31] VITALS: PULSE 128
[2024-07-26] MEDS: APIXABAN 2.5 MG TABLET 5 MG PO (21:06)
[2024-07-26 21:17] VITALS: BP 141/79; PULSE 102; RESP 16; TEMP 37; O2SAT 100
== END 2024-07-26 21:18 | disposition home or self-care (01) ==
PROVIDERS: Emergency Medicine; Emergency Provider Emergency Medicine; PCP Internal Medicine
DX: I48.92 Unspecified atrial flutter (principal); I50.21 Acute systolic (congestive) heart failure; I25.2 Old myocardial infarction; I48.19 Other persistent atrial fibrillation; K21.9 Gastro-esophageal reflux disease without esophagitis; Z95.1 Presence of aortocoronary bypass graft; Z95.0 Presence of cardiac pacemaker; Z86.0101 Personal history of adenomatous and serrated colon polyps; Z79.01 Long term (current) use of anticoagulants; Z79.82 Long term (current) use of aspirin; Z79.899 Other long term (current) drug therapy; I45.10 Unspecified right bundle-branch block
CPT/HCPCS: 36415; 71046; 80053; 83690; 84484; 85025; 85610; 85730; 93005; 96374; 96376; 99284; A9270

== ENCOUNTER 2024-08-02 01:17 | Day surgery (SDC) | payer OTHER, SELFPAY ==
[2024-08-01 10:49] VITALS: BMI 22.5
[2024-08-02] VITALS (10 sets, daily range): BP systolic 93–117; BP diastolic 52–94; PULSE 52–124; RESP 11–23; TEMP 36.3; O2SAT 97–100; BMI 34.9
--- NOTE | 2024-08-02 | ECG_ITS ---
Test Date: 2024-08-02 10:43:42 Measurements Intervals [place] Rate: 53 P: 146 [place]: 175 QRS: 146 QRSD: 154 T: -3 QT: 488 QTc: 459 Interpretive Statements ELECTRONIC ATRIAL PACEMAKER ELECTRONIC VENTRICULAR PACEMAKER BASELINE ARTIFACT- I, II, III, V1-V3 NO FURTHER INTERPRETATION IS POSSIBLE ATYPICAL ECG Compared to ECG 08/02/2024 08:42:41 Atrial flutter no longer present Electronically Signed On 08-02-2024 12:04:25 TICKET COUNTER by Steve De La Garza D.O.
--- NOTE | 2024-08-02 09:15 | ECG_ITS ---
Test Date: 2024-08-02 08:42:41 Measurements Intervals [place] Rate: 125 P: 0 CT: 0 QRS: 95 QRSD: 158 T: -18 QT: 356 QTc: 513 Interpretive Statements ATRIAL FLUTTER/TACHYCARDIA WITH RAPID VENTRICULAR RESPONSE RIGHT BUNDLE BRANCH BLOCK CONSIDER INFERIOR INFARCT, AGE INDETERMINATE ABNORMAL ECG Compared to ECG 07/26/2024 19:14:55 HEART RATE HAS INCREASED Electronically Signed On 08-02-2024 09:52:49 CRACKER DOUGH MIXER by Steve De La Garza D.O.
[2024-08-02 09:25] LABS: Anion Gap 7 mmol/L (4-12); Blood Urea Nitrogen 23 mg/dL (9-20); Calcium 8.9 mg/dL (8.4-10.2); Carbon Dioxide 24 mmol/L (22-30); Chloride 107 mmol/L (98-107); Estimated CRCL calculation 77 ml/min; Estimated Glomerular Filt Rate 56; Glucose 105 mg/dL (65-110); Magnesium 2.1 mg/dL (1.6-2.3); Potassium 4.1 mmol/L (3.4-5.0); Sodium 138 mmol/L (137-145)
[2024-08-02] MEDS: PERFLUTREN LIPID MICROSPHERES 1.5 ML VIAL DILUTED TO 10 ML TOTAL VOLUME (10:20)
--- NOTE | 2024-08-02 10:49 | P.SEDATION_ITS ---
Moderate Sedation Note-Pt Data Patient Data Diagnosis: Atrial flutter with RVR Present Complaint: Atrial flutter with RVR Procedure to be performed/Plan: PHANI, Synchronized electrical cardioversion Allergies Allergy/AdvReac Type Severity Reaction Status Date / Time No Known Allergies Allergy Mild Verified 08/02/24 08:59 Home Medications Medication Instructions Recorded Confirmed Type atorvastatin 40 mg tablet 40 mg PO DAILY 03/23/22 08/01/24 History aspirin 81 mg chewable tablet 81 mg PO DAILY@0800 #30 tabs 03/29/22 08/02/24 Rx (Children's Aspirin) furosemide 20 mg tablet (Lasix) 20 mg PO DAILY #30 tabs 03/29/22 08/01/24 Rx potassium chloride 10 mEq 10 meq PO DAILY@0800 #30 tabs 03/29/22 08/01/24 Rx tablet,extended release (K-Tab) sacubitril 24 mg-valsartan 26 mg 1 tab PO Q12HR #60 tabs 03/29/22 08/02/24 Rx tablet (Entresto) metoprolol succinate 25 mg 25 mg PO DAILY 08/03/23 08/02/24 History tablet,extended release 24 hr xyuplvydqmym-wow-xuyve acid-vit 1 tablet PO DAILY 08/03/23 08/01/24 History K-lycop 400 mcg-20 mcg-370 mcg tablet (Men's 50 Plus Multivitamin) apixaban 5 mg tablet (Eliquis) 5 mg PO BID #20 tabs 07/26/24 08/02/24 Rx omeprazole 40 mg capsule,delayed 40 mg PO DAILY 3 months #90 caps 07/28/24 08/01/24 Rx release Sedation/Anesthesia: No previous sedation/anesthesia problems (including family history). [facility] Past Medical History Medical History Acute exacerbation of CHF (congestive heart failure) Acute systolic heart failure Adenomatous colon polyp MILKA (acute kidney injury) Atrial flutter by electrocardiogram Bradycardia Chest pain CHF (congestive heart failure) DVT prophylaxis Dysphagia Elevated troponin Encounter to establish care Excessive cerumen in right ear canal GERD (gastroesophageal reflux disease) Heart attack Hyperbilirubinemia Hypotension Left arm swelling Medication monitoring encounter Persistent atrial fibrillation ST elevation (STEMI) myocardial infarction Surgical History Surgical History Hx of CABG S/P triple vessel bypass Family History Family History Father ALS (amyotrophic lateral sclerosis) Mother Hypertension Acute myocardial infarction CAD (coronary artery disease) Other Unknown family medical history Social History Social History Smoking status: Never smoker Alcohol intake: never Substance use: never Substance use type: does not use Lack of Transportation: No Lack of Food: Never True Current Housing: I Have Housing Concerned About Future Housing: No Difficulty Paying Gas/Electric Bills: No Difficulty Paying for Meds: No Currently Unemployed: No Education: High School Diploma/GED Difficulty w/ Childcare or Family Care: No Living arrangements: alone Gender identity (if verbalized by the patient): Male Spiritual care concerns: No Mod Sed Physical Exam Physical Exam Pre Procedural Exam: Normal: Appearance, Lungs, Neuro Exam, Extremities and Skin and Variation: Heart Rate (Atrial flutter with RVR) and Heart Rhythm (Atrial flutter with RVR) Hours since solid foods: 12 Hours since liquid intake: 8 Mallampati Classification: class III Internal Medicine - PN: Obj Da Vital Signs Vital Signs: Vital Signs - 24 hr 08/02/24 08:30 Temperature 36.3 C L Pulse Rate 124 H Respiratory Rate 20 Blood Pressure 117/80 Pulse Oximetry 99 Oxygen Delivery Room Air Intake/Output Intake/Output: Intake & Output 07/30/24 07/31/24 08/01/24 08/02/24 23:59 23:59 23:59 23:59 Intake Total 0 Balance 0 Labs 08/02/24 08:56 Labs: Laboratory Results - last 24 hr 08/02/24 08:56 Sodium 138 Potassium 4.1 Chloride 107 Carbon Dioxide 24 Anion Gap 7 BUN 23 H Creatinine 1.30 Estim Creat Clear Calc 77 Estimated GFR 56 L Glucose 105 Calcium 8.9 Magnesium 2.1 ASA Classification/Sedation ASA Classification/Sedation ASA Class: II Emergent: No Risks: Risks, benefits and alternatives explained and patient/family accepted plan for sedation. Patient re-evaluated immediately prior to sedation.
--- NOTE | 2024-08-02 10:49 | WPDHPUPDATE1 ---
History and Physical Update Update Date/Time: 08/02/24 10:49 History and Physical has been reviewed, including an updated exam of the patient. There are NO changes in the patient's condition. Risks, benefits, and alternatives have been discussed and questions answered. Patient agrees to proceed with procedure.
--- NOTE | 2024-08-02 10:51 | P.PCNTEECA_ITS ---
PHANI with Cardioversion Date of procedure: 08/02/24 Procedure Type: Date Of Procedure: 08/02/2024 Brief History Of Present Illness: Patient is a pleasant 63 year old male who is referred for PHANI-guided DCCV for atrial flutter with RVR. Indication: Atrial flutter with RVR Procedure In Detail: After verbal and written informed consent was obtained, the patient risks, benefits, and alternatives explained in detail. The patient agreed to proceed with the plan of care as outlined above.?The patient was evaluated at bedside in [facility].?The posterior oropharynx, neck, and jaw angle all within normal limits on examination. Lungs were clear to auscultation. See pre-sedation note for further details. The patient was then placed in the appropriate 30 to 45 degree angle supine position at a slight left lateral decubitus position.?Patient was monitored throughout the study with telemetry, oxygen saturation, end-tidal CO2 monitoring, blood pressure, heart rate, and respirations.?The posterior hypopharynx was then locally anesthetized using repeated administration of Hurricaine spray as well as gargled viscous lidocaine. After local anesthetic of the posterior hypopharynx was achieved and the oral bite block placed, moderate sedation was administered.?After confirmation of adequate moderate sedation, the transesophageal echocardiogram probe was advanced through the oral bite block into the posterior hypopharynx and into the esophagus easily and without complication.?Multiple, multiplanar echocardiographic images were obtained in multiple standard re- projections.?Definity was administered for better visualization.?At the conclusion of the study, the transesophageal echocardiogram probe was removed easily and without complication. The patient tolerated the procedure well without difficulty. Moderate Sedation / Anesthesia Administration: Procedure / sedation start time: 10:22AM Procedure / sedation end time: 10:38AM Total procedure time: 16 minutes Total of IV Versed 3mg and Fentanyl 75mg was administered by RN for PHANI. Total of 30mg of Propofol was administered by me prior to DCCV. PHANI FINDINGS: Patient with known history of left atrial appendage ligation. PHANI shows that there is no visible left atrial appendage stump or remnant. Smoke noted within the left atrium, however, no visible thrombus in left atrium or near the site of where the left atrial appendage would be. Definity was administered to definitively rule out thrombus. CARDIOVERSION: Defibrillator pads placed in an AP position. Propofol 30mg IV administered by me. Once patient was adequately sedated, synchronized electrical cardioversion was performed with 1 shock at 250 joules, which converted patient to an atrial paced ventricular paced rhythm. CONCLUSION: SUCCESSFUL CARDIOVERSION TO AN ATRIAL PACED VENTRICULAR PACED RHYTHM. Complications: None
--- NOTE | 2024-08-02 11:12 | IVDEFINITY ---
Prior to administration of IV Definity the patient was educated on the risks and benefits of the imaging enhancing agent including potential adverse side effects. The patient verbalized understanding. Allergies were verified. No exclusion criteria were identified and at least one of the following inclusion criteria were met: 1) physician request, 2) patient technically difficult to image (per the [employer] Echocardiography guidelines of two or more segments not discernable within the apical view), or 3) questionable left ventricular function. ?
== END 2024-08-02 11:45 | disposition home or self-care (01) ==
PROVIDERS: PCP Internal Medicine; Visit Provider Internal Medicine
PROC: (CPT 93312; principal; 2024-08-02 10:00)
PROC: 5A2204Z Restoration of Cardiac Rhythm, Single (ICD-10-PCS; 2024-08-02 10:00)
DX: I48.92 Unspecified atrial flutter (principal); I25.10 Atherosclerotic heart disease of native coronary artery without angina pectoris; I25.5 Ischemic cardiomyopathy; I45.10 Unspecified right bundle-branch block; R94.31 Abnormal electrocardiogram [ECG] [EKG]; K21.9 Gastro-esophageal reflux disease without esophagitis; R00.1 Bradycardia, unspecified; I50.21 Acute systolic (congestive) heart failure; I95.9 Hypotension, unspecified; I25.2 Old myocardial infarction; Z79.01 Long term (current) use of anticoagulants; Z79.82 Long term (current) use of aspirin; Z98.890 Other specified postprocedural states; Z95.1 Presence of aortocoronary bypass graft; Z95.0 Presence of cardiac pacemaker; Z86.0100 Personal history of colon polyps, unspecified; Z86.79 Personal history of other diseases of the circulatory system; Z86.718 Personal history of other venous thrombosis and embolism; Z82.49 Family history of ischemic heart disease and other diseases of the circulatory system
CPT/HCPCS: 36415; 80048; 83735; 92960; 93312; 93320; 93325; C8925; C8929; J2250; J2704; J3010; J7050; Q9957

== ENCOUNTER 2025-02-06 09:11 | Outpatient (CLI) | payer MEDICAID, SELFPAY ==
--- NOTE | ~2025-02-06 | US_ITS ---
Limited Abdominal Sonogram: Real-time sonographic imaging of the right upper quadrant was performed. Clinical History: Nonalcoholic steatohepatitis Findings: The liver appears echogenic, with no evidence of mass lesion or bile duct dilatation. Main portal vein demonstrates normal direction of flow. The gallbladder is well distended, and appears no rmal with no evidence of gallstone or wall thickening. The common bile duct measures 4 mm. The visua lized pancreas, aorta, and IVC are unremarkable. Impression: Diffuse fatty infiltration of the liver. Reviewed, dictated and finalized at location M. Impression: Diffuse fatty infiltration of the liver.
--- OUTSIDE RECORDS SUMMARY | 2025-02-06 09:27 | XMS_ITS | Referral Summary ---
Author Organization [facility] [address] Address [address] [place] [address] Care Team Providers Care Tool Grinder Operator Surface Name Role Phone Jt Benoit MD Unavailable [phone] Peter Devine MD Unavailable [phone] Gauri Carrasquillo NP Primary Care Provider [phone] Encounters Date Type Department Care Team Description 01/17/2025 7:30 AM CDT Ancillary Procedure [facility] Cardiology [address] [facility] [address] [place] [id number] Ischemic cardiomyopathy; History of atrial flutter from Last 3 Months Allergies No known active allergies Medications omeprazole (PriLOSEC) 40 mg capsule Take 1 capsule (40 mg total) by mouth daily 90 capsule 1 4 Active kwbeqiys-vzx-n olic-vit K-lycop 400-20-370 mcg tablet Take by mouth daily Active atorvastatin (LIPITOR) 40 mg tablet TAKE 1 TABLET BY MOUTH EVERY DAY 90 tablet 2 4 Active Entresto 24-26 mg tablet TAKE 1 TABLET BY MOUTH EVERY 12 HOURS 60 tablet 8 4 Active Eliquis 5 mg tablet Take 1 tablet (5 mg total) by mouth 2 (two) times a day 180 tablet 1 5 Active potassium chloride ER 10 mEq CR tablet TAKE 1 TABLET BY MOUTH EVERY DAY AT 8AM 30 tablet 5 5 Active furosemide (LASIX) 20 mg tablet TAKE 1 TABLET BY MOUTH EVERY DAY 90 tablet 1 5 Active metoprolol XL (TOPROL-XL) 25 mg extended release tablet TAKE 1 TABLET (25 MG TOTAL) BY MOUTH DAILY. 90 tablet 1 5 02/02/20 26 Active aspirin 81 mg enteric coated tablet TAKE 1 TABLET BY MOUTH EVERY DAY 30 tablet 5 5 Active aspirin 81 mg enteric coated tablet TAKE 1 TABLET BY MOUTH EVERY DAY 30 tablet 5 4 02/02/20 25 Discontinued furosemide (LASIX) 20 mg tablet TAKE 1 TABLET BY MOUTH EVERY DAY 90 tablet 1 4 01/24/20 25 Discontinued metoprolol XL (TOPROL-XL) 25 mg extended release tablet Take 1 tablet (25 mg total) by mouth daily 90 tablet 1 4 02/02/20 25 Discontinued Active Problems Problem Noted Date Diagnosed Date Morbid (severe) obesity due to excess calories 0 02/23/2024 Biventricular implantable ca rdioverter-defibrillator in situ 07/14/2023 Overview (07/14/2023): [employer] WEB SITE MANAGER-D. Dx; ICM-NICM, Tachy/Tunde, Paroxysmal Afib/Aflutter. DOI 07/13/2023-[place]. [place]. [place] remote. Acute on chronic combined sy stolic and diastolic congestive heart failure 07/11/2023 Atrial fibrillation with RVR 07/11/2023 Bradycardia 07/11/2023 Hyperbilirubinemia 07/11/2023 Assessment & Plan (09/08/2023 11:02 AM FERMENTATION MANAGER): Chronic, recent US liver from hospital stay (07/10/23) showed: IMPRESSION: No evidence of cholelithiasis or acute cholecystitis. Borderline hepatomegaly with steatosis. Borderline extrahepatic biliary distention. Correlate with liver chemistries and consider MRCP. Per review, GI consulted on patient and plan as follows: -- Hyperbilirubinemia: Indirect hyperbilirubinemia. LFTs normal. Liver ultrasound showed no evidence of cholelithiasis or acute cholecystitis. Borderline hepatomegaly with steatosis. Borderline extrahepatic biliary distention. Consulted GI [place] to be sec to Gilbert's syndrome. No further work up recommended. T.bili 2.2 now. Open wound of skin 07/11/2023 Hx of CABG 08/19/2022 Assessment & Plan (09/08/2023 11:02 AM FERMENTATION MANAGER): Follows with Cardiology. Ischemic cardiomyopathy 08/19/2022 Hematuria 07/18/2020 Diffuse CAD in nikolai artery 06/13/2020 STEMI (ST elevation myocardial infarction) 06/13 Dysphagia 06/13/2020 Hepatitis 06/13/2020 Coronary artery disease invo lving nikolai heart without angina pectoris 06/12/2020 Overview (06/13/2020): Added automatically from request for surgery [id number] Acute ST elevation myocardia l infarction (STEMI) involving left anterior descending (LAD) coronary artery Resolved Problems Problem Noted Date Diagnosed Date Resolved Date Bladder mass 07/18/2020 07/18/2020 Immunizations Immunization Administration Dates Next Due Influenza, Quadrivalent, Hali l Culture-based MDCK, Preservative Free, Antibiotic Free, Intramuscular 08/08/2022 Influenza, Quadrivalent, Spl it, Preservative Free, Intramuscular 07/15/2021 Influenza, Unspecified 09/07/2023(Deferr ed: Patient Refused),09/07/2022(Deferred: Patient Refused) Pfizer SARS-CoV-2 Monovalent Vaccination (12+ Yrs) PURPLE 11/06/2020 Social History Tobacco Use Types Packs/Day Years Used Date Smoking Tobacco: Never Passive Smoke Exposure: Never Smokeless Tobacco: Never Tobacco Cessation:Counseling Given: Not Answered Alcohol Use Standard Drinks/Week Comments Not Currently 0 (1 standard drink = 0.6 oz pur e alcohol) [facility] Utilities Answer Date Recorded In the past 12 months has [employer], [employer], oil, or water [employer] threatened to shut off services in your home? No 07/13/2023 Social Connection and Isolat ion Panel [NHANES] Answer Date Recorded In a typical week, how many times do you talk on the phone with family, friends, or neighbors? More than three times a week 07/13/2023 How often do you get togethe r with friends or relatives? More than three times a week 07/13/2023 How often do you attend [facility] or orthodoxy services? Never 07/13/2023 Do you belong to any clubs o r organizations such as taoism groups, unions, fraternal or athletic groups, or school groups? No 07/13/2023 How often do you attend meet ings of the clubs or organizations you belong to? Never 07/13/2023 Are you , , di vorced, , never , or living with a partner? Never 07/13/2023 AUDIT-C Answer Date Recorded Frequency of Alcohol Consumption Not on file 07/11/2023 Q2: How many drinks containi ng alcohol do you have on a typical day when you are drinking? Patient does not drink Frequency of Binge Drinking Not on file 12/2022 Overall Financial Resource Strain (CARDIA) Answe r Date Recorded How hard is it for you to pa y for the very basics like food, housing, medical care, and heating? Not very hard 07/13/2023 PHQ-2 Answer Date Recorded PHQ-2 Total Score (If total score is 3 or more points, staff should administer the PHQ-9) 0 09/08/2023 Hunger Vital Sign Answer Date Recorded Within the past 12 months, y ou worried that your food would run out before you got the money to buy more. Never true 07/13/20 23 Within the past 12 months, t he food you bought just didn't last and you didn't have money to get more. Never true 07/13/2023 PRAPARE - Transportation Answer Date Re corded In the past 12 months, has l ack of transportation kept you from medical appointments or from getting medications? No 02/2023 In the past 12 months, has l ack of transportation kept you from meetings, work, or from getting things needed for daily living? No 07/13/2023 Housing Stability Vital Sign Answer Justin e Recorded In the last 12 months, was t here a time when you were not able to pay the mortgage or rent on time? No 07/13/2023 In the last 12 months, how many places have you lived? 1 07/13/2023 In the last 12 months, was t here a time when you did not have a steady place to sleep or slept in a long-term (including now)? No 07/13/2023 Personal Safety Answer Date Recorded Have you ever been in or are you currently in a harmful physical or emotional relationship or is someone making you feel afraid or unsafe? Denies 07/10/2023 Sex and Gender Information Value Date Recorded Sex Assigned at Not on file Legal Sex Male 1:32 PM CDT Gender Identity Not on file Sexual Orientation Not on file Last Filed Vital Signs Vital Sign Reading Time Taken Comments Blood Pressure 110/62 09/22/2024 1:05 PM FERMENTATION MANAGER Pulse 51 09/22/2024 1:05 PM FERMENTATION MANAGER Temperature 36.6 C (97.8 F) 09/08/2023 10:22 AM FERMENTATION MANAGER Respiratory Rate 14 04/26/2024 9:01 AM CDT Oxygen Saturation 97% 09/22/2024 1:05 PM FERMENTATION MANAGER Inhaled Oxygen Concentration - - Weight 127.9 kg (282 lb) 09/22/2024 1:05 PM FERMENTATION MANAGER Height 190.5 cm (6' 3) 09/22/2024 1:05 PM FERMENTATION MANAGER Body Mass Index 35.25 09/22/2024 1:05 PM FERMENTATION MANAGER Plan of Treatment Not on file Medical Devices Implanted Type Area Police Or Patrol Park Officer Device Identifier Shelf Expiration Date Model / Serial / Lot [employer] Durata 6.8fr 65cm True Bipolar Active Fixation Extendable 1 Coil 7122q/65 - [id number] - [id number] Implanted:Qty: 1 on 07/13/2023 by Peter Devine MD at [facility] Right: Ventricle [employer] 05/07/2026 7122Q/65 / [id number] / [employer] Quartet 4.7fr 86cm Quadripolar Is-4 Llll Connector 8 Curve Low 1456q/86 - [id number] - [id number] Implanted:Qty: 1 on 07/13/2023 by Peter Devine MD at [facility] Lead [employer] 03/06/2026 1456Q/86 / [id number] / [employer] Tendril Sts 6fr 52cm Is-1 Connector Active Fixation Bipolar Soft 2087tc/ - [id number] - [id number] Implanted:Qty: 1 on 07/13/2023 by Peter Devine MD at [facility] Lead [employer] 05/07/2026 2088TC/52 / [id number] / Atricure [id number] Device Closure Atriclip Nitinol Titanium Polyester 45 D L45mm L6cm Flexible Shaft Plunger [employer] Weaver Left Atrial Appendage Exclusion System - [id number] Implanted:Qty: 1 on 06/15/2020 by Silvestre Valdes MD at [facility] Heart [employer] 03/07/2023 [id number] / / [id number] [employer] Defib Cardiac [id number] [place] Hf Df4 Is-4 Is-1 Cnctr [id number] - [id number] - [id number] Implanted:Qty: 1 on 07/13/2023 by Peter Devine MD at [facility] [employer] [id number] 05/07/2025 CDHFA 500Q / [id number] / Procedures Procedure Name Priority Date/Time Associated Diagnosis Comments COLONOSCOPY Routine 07/08/2022 HEPATITIS C ANTIBODY Routine 06/15/2020 6:30 PM CDT from Last 3 Months or Most Recently Relevant to Health Maintenance Results * COLONOSCOPY (07/08/2022) Historical Provider HEALTH MAINTENANCE Final Result * Hepatitis C antibody (06/15/2020 6:30 PM CDT) Hep C Ab Nonreactive Nonreactive MARK Comment: Interpretive Data Nonreactive: Antibodies to HCV not detected. Does NOT exclude the possibility of recent exposure to HCV. Equivocal: Equivocal for HCV antibodies. Supplemental molecular testing will be automatically performed to determine infection status in accordance with current CDC screening recommendations. Reactive: Positive for HCV antibodies. This may represent current or past HCV infection. Supplemental molecular testing will be automatically performed to determine current infection status in accordance with current CDC screening recommendations. Interpretive data was last revised on 2019. Blood specimen (specimen) 06/15/2020 6:30 PM CDT 06/15/2020 6:50 PM CDT us Notinfile Unknown LAB MICROBIOLOGY - GENERAL [place] [id number] [address] [place] [address] from Last 3 Months or Most Recently Relevant to Health Maintenance Insurance [facility] Member Subscriber Plan / Payer (Ef fective 2020-Present) Name:DonniePapa negrete Relation to Subscriber:Self Name:Donnie Papa Payer ID:[id number] (NAIC) Group ID:Not on file Type:MEDICAID RISK OTHER Address: [address] [place], [place] [id number] [place] [address] [facility] Advance Directives For more information, please contact: [phone] Documents on File Type Date Recorded Patient Professor Of Engineering Expl anation ADVANCE DIRECTIVE 06/22/2020 1:13 PM ARISTEO R OF MEDICAL TRANSCRIPTION EDITOR-MEDICAL * Full Code (Latest Code Status on File) Date Activated Date Inactivated Comments 07/11/2023 1:09 AM 07/14/2023 7:46 PM * Full Code Date Activated Date Inactivated Comments 06/15/2020 4:04 PM 06/28/2020 6:42 PM * Full Code Date Activated Date Inactivated Comments 06/12/2020 8:30 PM 06/15/2020 4:04 PM Care Teams Tool Grinder Operator Surface Relationship Specialty Start Date End Date Gauri Carrasquillo NP [address] [place] [address] PCP - General Cardiovascular Disease 07/28/24 Jt Benoit MD [address] [place] [address] Consulting Physician Cardiology 09/08/23 Peter Devine MD [address] [facility] [address], [place] [address] Consulting Physician Cardiology 09/08/23
--- OUTSIDE RECORDS SUMMARY | 2025-02-06 09:27 | XMS_ITS | Clinical Summary ---
Author Organization [facility] [place] [address] Address [address] [place] [address] Care Team Providers Care Coordinate Measuring Machine Programmer Name Role Phone Jt Benoit MD Unavailable [phone] Peter Devine MD Unavailable [phone] Gauri Carrasquillo NP Primary Care Provider + [phone] Allergies No known active allergies Medications omeprazole (PriLOSEC) 40 mg capsule Take 1 capsule (40 mg total) by mouth daily 90 capsule 1 4 Active vagovang-qeq-c olic-vit K-lycop 400-20-370 mcg tablet Take by [...] ca rdioverter-defibrillator in situ 07/14/2023 Overview (07/14/2023): Selam Rodriguez CHASER APPRENTICE-D. Dx; ICM-NICM, Tachy/Tunde, Paroxysmal Afib/Aflutter. DOI 07/13/2023-Kahanda. [place]. Brick remote. Acute on chronic combined sy stolic and diastolic congestive heart failure 07/11/2023 Atrial fibrillation with RVR 07/11/2023 Bradycardia 07/11/2023 Hyperbilirubinemia 07/11/2023 Assessment & Plan (09/08/2023 11:02 AM MOLASSES AND CARAMEL OPERATOR): Chronic, recent US liver from hospital stay [...] steatosis. Borderline extrahepatic biliary distention. Consulted [facility] [place] to be sec to Gilbert's syndrome. No further work up recommended. T.bili 2.2 now. Open wound of skin 07/11/2023 Hx of CABG 08/19/2022 Assessment & Plan (09/08/2023 11:02 AM MOLASSES AND CARAMEL OPERATOR): Follows with Cardiology. Ischemic cardiomyopathy 08/19/2022 Hematuria 07/18/2020 Diffuse CAD in hughes artery 06/13/2020 STEMI (ST elevation myocardial infarction) 06/13 Dysphagia 06/13/2020 Hepatitis 06/13/2020 Coronary artery disease invo lving hughes heart without angina pectoris 06/12/2020 Overview (06/13/2020): Added automatically from request for surgery [id number] Acute ST elevation myocardia l infarction (STEMI) involving left anterior descending (LAD) coronary artery Resolved Problems Problem Noted Date Diagnosed Date Resolved Date Bladder mass 07/18/2020 07/18/2020 Encounters Date Type Department Care Team Description 01/17/2025 7:30 AM CDT Ancillary Procedure [facility] Cardiology [address] [place] [id number] Ischemic cardiomyopathy; History of atrial flutter from Last 3 Months Immunizations Immunization Administration Dates Next Due Influenza, Quadrivalent, Hali l Culture-based MDCK, Preservative Free, Antibiotic Free, Intramuscular 08/08/2022 Influenza, Quadrivalent, Spl it, Preservative Free, Intramuscular 07/15/2021 Influenza, Unspecified 09/07/2023(Deferr ed: Patient Refused),09/07/2022(Deferred: Patient Refused) Pfizer SARS-CoV-2 Monovalent Vaccination (12+ Yrs) PURPLE 11/06/2020 Surgical History Surgery Date Site/Laterality Comments CORONARY ARTERY BYPASS GRAFT IBANEZ-MAZE MICROWAVE ABLATION HEART SURGERY Left atrial appendage excision Medical History Medical History Date Comments Coronary artery disease Dysphagia CHF (congestive heart failure) ([facility]) A-fib (HCC) Hypotension On Sotalol Bradycardia On Sotalol Gastritis NM (myocardial infarction) ([facility]) Family History Medical History Relation Name Comments Heart attack Father's Brother Heart attack Maternal Grandfather Heart attack Mother Heart disease Mother Relation Name Status Comments Father's Brother Maternal Grandfather Mother Alive Social History Tobacco Use Types Packs/Day Years Used Date Smoking Tobacco: Never Passive Smoke Exposure: Never Smokeless Tobacco: Never Tobacco Cessation:Counseling Given: Not Answered Alcohol Use Standard Drinks/Week Comments Not Currently 0 (1 standard drink = 0.6 oz pur e alcohol) [facility] Utilities Answer Date Recorded In the past 12 months has e [employer], gas, oil, or water [employer] threatened to shut off services in your [...] week 07/13/2023 How often do you attend chur ch or spiritism services? Never 07/13/2023 Do you belong to any clubs o r organizations such as orthodoxy groups, unions, fraternal or athletic groups, or [...] place to sleep or slept in a snf (including now)? No 07/13/2023 Personal Safety Answer [...] on file Sexual Orientation Not on file Obstetrics History Last Filed Vital Signs Vital Sign Reading Time Taken Comments Blood Pressure 110/62 09/22/2024 1:05 PM MOLASSES AND CARAMEL OPERATOR Pulse 51 09/22/2024 1:05 PM MOLASSES AND CARAMEL OPERATOR Temperature 36.6 C (97.8 F) 09/08/2023 10:22 AM MOLASSES AND CARAMEL OPERATOR Respiratory Rate 14 04/26/2024 9:01 AM CDT Oxygen Saturation 97% 09/22/2024 1:05 PM MOLASSES AND CARAMEL OPERATOR Inhaled Oxygen Concentration - - Weight 127.9 kg (282 lb) 09/22/2024 1:05 PM MOLASSES AND CARAMEL OPERATOR Height 190.5 cm (6' 3) 09/22/2024 1:05 PM MOLASSES AND CARAMEL OPERATOR Body Mass Index 35.25 09/22/2024 1:05 PM MOLASSES AND CARAMEL OPERATOR Plan of Treatment Health Maintenance Due Date Last Done Comments Prostate Cancer Screening-PSA 1962 DTaP/Tdap/Td Vaccine (1 - Tdap) 1973 Hepatitis B Screening 1980 Pneumococcal vaccine <65 (1 of 2 - PCV) 1981 Zoster Vaccine (1 of 2) 2012 02/04/2025 Covid-19 Vaccine ( - season) 2024 08/08/2022, 11/28/2020, 11/06/2020 Depression Screening 09/08/2024 09/08/2023 Regular Well Visit/Exam 18-64 09/08/2024 09/08/2023 Influenza Vaccine (Season Ended) 2025 08/08/20 22, 07/15/2021 Colon Cancer Screening-Colonoscopy 07/08/20272021 Hepatitis C Screening Completed 06/15/2020 Medical Devices Implanted Type Area Aircraft Assembler Device Identifier Shelf Expiration Date Model / Serial / Lot [employer] Durata 6.8fr 65cm True Bipolar Active Fixation Extendable 1 Coil 7122q/65 - [id number] - [id number] Implanted:Qty: 1 on 07/13/2023 by Peter Devine MD at [facility] Lead Right: Ventricle [employer] 05/07/2026 7122Q/65 / [id number] / [employer] Quartet 4.7fr 86cm Quadripolar Is-4 Llll Connector 8 Curve Low 1456q/86 - [id number] - [id number] Implanted:Qty: 1 on 07/13/2023 by Peter Devine MD at [facility] Lead [employer] 03/06/2026 1456Q/86 / [id number] / [employer] Tendril Sts 6fr 52cm Is-1 Connector Active Fixation Bipolar Soft 2087tc/52 - [id number] - [id number] Implanted:Qty: 1 on 07/13/2023 by Peter Devine MD at [facility] Lead [employer] 05/07/2026 2088TC/52 / [id number] / Atricure [id number] Device Closure Atriclip Nitinol Titanium Polyester 45 D L45mm L6cm Flexible Shaft Plunger Commercial Banker Left Atrial Appendage Exclusion System - [id number] Implanted:Qty: 1 on 06/15/2020 by Silvestre Valdes MD at [facility] Heart [employer] 03/07/2023 [id number] / / [id number] [employer] Defib Cardiac [id number] [place] Hf Df4 Is-4 Is-1 Cnctr [id number] - [id number] - [id number] Implanted:Qty: 1 on 07/13/2023 by Peter Devine MD at [facility] [employer] [id number] 05/07/2025 [facility] 500Q / [id number] / Procedures Procedure Name Priority Date/Time Associated Diagnosis Comments COLONOSCOPY Routine 07/08/2022 HEPATITIS C ANTIBODY Routine 06/15/2020 6:30 PM CDT from Last 3 Months or Most Recently Relevant to Health Maintenance Results * COLONOSCOPY (07/08/2022) Historical Provider HEALTH MAINTENANCE Final Result * Hepatitis C antibody (06/15/2020 6:30 PM CDT) Hep C Ab Nonreactive Nonreactive MARK LITTLE Comment: Interpretive Data Nonreactive: Antibodies to HCV [...] 6:30 PM CDT 06/15/2020 6:50 PM CDT Notinfile Unknown LAB MICROBIOLOGY - GENERAL ORD ERABLES Final Result MARK [id number] Selam Aguayo Department [place] [address] from Last 3 Months or Most Recently Relevant to Health Maintenance Insurance [facility] [id number] [place] [address] [address] [place] [address] [facility] Advance Directives For more information, please contact: [phone] Documents on File Type Date Recorded Patient Nurses Medical Assistants Phlebotomists Expl anation ADVANCE DIRECTIVE 06/22/2020 1:13 PM ARISTEO R OF BOILER TESTING TECHNICIAN-MEDICAL * Full Code (Latest Code Status on File) Date Activated Date Inactivated Comments 07/11/2023 1:09 AM 07/14/2023 7:46 PM * Full Code Date Activated Date Inactivated Comments 06/15/2020 4:04 PM 06/28/2020 6:42 PM * Full Code Date Activated Date Inactivated Comments 06/12/2020 8:30 PM 06/15/2020 4:04 PM Care Teams Coordinate Measuring Machine Programmer Relationship Specialty Start Date End Date Gauri Carrasquillo NP [address] [place] [address] PCP - General Cardiovascular Disease 07/28/24 Jt Benoit MD [address] [place] [address] Consulting Physician Cardiology 09/08/23 Peter Devine MD [address] [facility] [address] [place], [place] [id number] Consulting Physician Cardiology 09/08/23
== END 2025-02-06 09:12 | disposition home or self-care (01) ==
PROVIDERS: PCP Clinical Nurse Specialist; Visit Provider Nurse Practitioner
DX: K75.81 Nonalcoholic steatohepatitis (NASH) (principal)
CPT/HCPCS: 76705

== ENCOUNTER 2025-02-27 10:34 | Outpatient (CLI) | payer MEDICAID, SELFPAY ==
[2025-02-27 10:58] LABS: Hematocrit 45.9 % (42.0-52.0); Hemoglobin 15.4 g/dL (14.0-18.0); Mean Corpuscular HGB Conc 33.6 g/dl (32-36); Mean Corpuscular Hemoglobin 30.5 pg (26-34); Mean Corpuscular Volume 90.9 fl (80-100); Mean Platelet Volume 11.2 fl (7.4-10.4); Platelet Count Result 170 k/mm3 (150-375); Red Blood Count 5.05 M/mm3 (4.6-6.20); Red Cell Distribution Width 12.9 % (11.5-14.5); White Blood Count 6.5 K/mm3 (4.5-10.0)
[2025-02-27 11:05] LABS: Alanine Aminotransferase 46 U/L (6-50); Albumin Level 4.3 g/dL (3.5-5.1); Alkaline Phosphatase 94 U/L (38-126); Aspartate Amino Transferase 44 U/L (17-59); Bilirubin,Total 2.2 mg/dL (0.2-1.3); Total Protein 7.6 g/dL (6.3-8.2)
[2025-02-27 11:13] LABS: INR 1.2
[2025-02-27 11:58] LABS: Erythrocyte Sedimentation Rate 13 mm/hr (0-20)
[2025-02-28 02:28] LABS: Alpha-1-Antitrypsin, QN 125 mg/dL (83-199)
[2025-03-01 06:58] LABS: Immunoglobulin A 207 mg/dL (70-320); TTG IGA AB <1.0 U/mL
[2025-03-02 11:14] LABS: LKM 1 Antibody <=20.0 U (<=20.0)
== END 2025-02-27 10:35 | disposition home or self-care (01) ==
PROVIDERS: PCP Clinical Nurse Specialist; Visit Provider Nurse Practitioner
DX: K75.81 Nonalcoholic steatohepatitis (NASH) (principal)
CPT/HCPCS: 36415; 80076; 81596; 82103; 82607; 82728; 82784; 83520; 84443; 85027; 85610; 85652; 86376

== ENCOUNTER 2025-07-25 10:45 | Emergency (ER) | payer MEDICAID, SELFPAY ==
--- NOTE | 2025-07-25 10:47 | ED_ITS ---
HPI - URI/Sore Throat General Chief Complaint: Upper Respiratory Infection Stated Complaint: Sinus Infection Symptoms Time Seen by Provider: 07/25/25 11:03 Source: patient, RN notes reviewed and old records reviewed Mode of arrival: ambulatory Limitations: no limitations History of Present Illness HPI Narrative: a 64-year-old male presents to the [facility] with sinus congestion, headache, sore throat that started yesterday. No treatment prior to arrival. Denies fevers. Denies chest pain or shortness of breath Related Data Home Medications ?Medication ?Instructions ?Recorded ?Confirmed ?Last Taken ?Type atorvastatin 40 mg tablet 40 mg PO DAILY 03/23/2202/0608/01/24 History fjofwsjhmaak-cls-onyhq acid-vit 1 tablet PO DAILY 07/0902/27/25 08/01/24 History K-lycop 400 mcg-20 mcg-370 mcg tablet (Men's 50 Plus Multivitamin) amiodarone 200 mg tablet mg 07/25/25 Unknown History metoprolol succinate 50 mg mg PO 07/25/25 Unknown His tory tablet,extended release 24 hr Allergies Allergy/AdvReac Type Severity Reaction Status Date / Time No Known Allergies Allergy Mild Verified 07/25/25 10:47 Review of Systems Review of Systems: All systems reviewed & are unremarkable except as noted in HPI and below Constitutional: Constitutional: Reports no additional constitutional complaints ENT: Reports as per HPI Cardiovascular: Cardiovascular: Reports no additional cardiovascular complaints, Denies chest pain and Denies dyspnea Respiratory: Respiratory: Reports no additional respiratory complaints, Denies chest congestion, Denies cough and Denies dyspnea Musculoskeletal: Musculoskeletal: Reports no additional musculoskeletal complaints Integumentary/Breasts: Skin/Breast: Reports system reviewed and no additional complaints, except as docu PMFSH Past Medical History Medical History Adenomatous colon polyp Excessive cerumen in right ear canal Left arm swelling GERD (gastroesophageal reflux disease) Encounter to establish care Heart attack CHF (congestive heart failure) Hypotension Bradycardia Medication monitoring encounter Acute systolic heart failure Persistent atrial fibrillation Atrial flutter by electrocardiogram MILKA (acute kidney injury) Elevated troponin Acute exacerbation of CHF (congestive heart failure) Hyperbilirubinemia DVT prophylaxis Dysphagia ST elevation (STEMI) myocardial infarction Chest pain Surgical History Surgical History Hx of CABG S/P triple vessel bypass Family History Family History Father ALS (amyotrophic lateral sclerosis) Mother Hypertension Acute myocardial infarction CAD (coronary artery disease) Other Unknown family medical history Social History Social History Smoking status: Never smoker Alcohol intake: never Substance use: never Substance use type: does not use Lack of Transportation: No Lack of Food: Never True Current Housing: I Have Housing Concerned About Future Housing: No Difficulty Paying Gas/Electric Bills: No Difficulty Paying for Meds: No Currently Unemployed: No Education: High School Diploma/GED Difficulty w/ Childcare or Family Care: No Living arrangements: alone Gender identity (if verbalized by the patient): Male Spiritual care concerns: No Comments At the time of my signature, I reviewed and agree with the nursing past medical, surgical, social, and family history. There is no relevant family history pertinent to the patient complaint. Exam Const: General: cooperative, healthy appearing, comfortable, no acute distress, well developed, alert and well nourished Nutritional Appearance: well nourished and obese Orientation/consciousness: patient oriented x3 Limitations: no limitations HENMT: Head: normal to inspection Ears: hearing grossly normal bilaterally, external ears normal, TM's normal bilaterally, EAC's normal, mastoids normal and no periauricular adenopathy Face/Nose/Sinus: Normal external nose present, Normal nasal mucous membranes and turbinates present and Other nasal findings present ( clear rhinorrhea) Mouth: Yes Normal oral and palatal mucosa present, Yes lip normal, Yes tongue normal and Yes moist mucous membranes Throat: posterior oropharynx normal, uvula midline, postnasal drainage and no uvular edema Eyes: General: appearance normal, both eyes and all related structures Alignment and Position: alignment normal Neck: Neck: normal visual inspection, full ROM, no lymphadenopathy and no meningeal signs Chest: Chest palpation & inspection: normal inspection of the chest Resp: Effort & Inspection: normal respiratory effort and able to speak in complete sentences Auscultation: clear to auscultation bilaterally, no crackles, no rales, no rhonchi and no wheezes Cardio: Rate: regular rate Skin: General skin exam: normal color and no rashes or lesions noted Neuro: General: patient oriented x3, gait normal, moves all extremities and no meningeal signs Cognition (Neuro): normal cognition Speech: normal speech Gait exam (Neuro): Normal gait present Extrem: General: normal to inspection, full ROM, capillary refill normal and normal gait Psych: Appearance: grossly normal and well kempt Mental Status: mental status grossly normal Speech and movement: Normal speech and movement present and Clear speech present Affect: normal affect Attitude: cooperative Course Course Level of Care: Express Care Visit Vital Signs Vital signs: Vital Signs Temperature 97.4 F L 07/25/25 11:01 Pulse Rate 50 L 07/25/25 11:01 Respiratory Rate 16 07/25/25 11:01 Blood Pressure 143/75 H 07/25/25 11:01 Pulse Oximetry 100 07/25/25 11:01 Temperature 97.4 F L 07/25/25 11:01 Pulse Rate 50 L 07/25/25 11:01 Respiratory Rate 16 07/25/25 11:01 Blood Pressure 143/75 H 07/25/25 11:01 Pulse Oximetry 100 07/25/25 11:01 Reviewed MDM - URI/Sore Throat MDM Narrative Medical decision making narrative: patient sitting comfortably in exam room. Patient is nontoxic, vitals stable. Patient presents with 1 day history of URI symptoms. Flu COVID and strep were all negative patient has not taken any medication states that he tried taking Sudafed once in at send him into AFib. Discussed OTC medications, stressed the importance of talking with pharmacist if he has ever concerned. No acute findings other than clear rhinorrhea noted on exam patient is appropriate for outpatient treatment with close follow-up Discharge instructions reviewed with patient, as well as provided in writing per nursing staff. The instructions also include specific and strict return/GO TO THE ER as well as f/u information. All questions have been answered, and the patient deny any further questions with discharge and discharge plan. Some parts of this dictation were generated by voice recognition software and may contain typographical and/or grammatical inaccuracies. Differential Diagnosis Differential diagnosis: Likely upper respiratory infection, otitis media, sinusitis, viral infection, bronchitis, influenza and pharyngitis Lab Data Labs: Lab Results 07/25/25 Range/Units 11:11 POC Influenza A Ag Negative (Negative) POC Influenza B Ag Negative (Negative) POC SARS CoV-2 Ag Negative (Negative) POC Grp A Strep Screen Negative (Negative) reviewed Critical Care Time Critical Care Time Critical Care Time: No Discharge Plan Discharge Clinical Impression: Sinusitis Qualifiers: Sinusitis location: pansinusitis Chronicity: acute Recurrence: not specified as recurrent Qualified Code(s): J01.40 - Acute pansinusitis, unspecified Patient Disposition: Home Condition: Stable Instructions: Sinusitis (ED), Viral Syndrome (ED) Additional Instructions: Your rapid strep swab was negative today at [facility]. A throat culture will be sent to the laboratory for further testing. If the test is positive, you will receive a phone call within 48 hours and an appropriate antibiotic will be initiated at that time. Your rapid COVID test were negative Your rapid flu test was negative please talk with a pharmacist to make sure that qjfh-kte-qzeqbyu medications are safe with your prescribed medications. Your symptoms are likely due to a viral illness, which is not treated with antibiotics. Typically viral infections last 7-10 days, can linger for couple of weeks. It is very important to treat your symptoms. Drink plenty of water, Gatorade, Pedialyte, ice pops or Jell-O. - take Tylenol per package directions for fever or pain. -Antihistamine medication such as Claritin during the day can help improve symptoms. -doing daily nasal irrigations can help relieve pressure your sinuses. Things like a Neti pot -Use Flonase twice a day for 5 days then daily to help reduce the inflammation and dry up your sinuses. -You can also use Coricidin HBP. Be sure to drink plenty of water with this medication at least 8 ounces with every dose and it is important to drink 8 to 10 glasses of water per day. Water is a natural decongestant -Eat and drink things that are easy to swallow, like tea or soup, or popsicles. -Oral rinses such as: Salt water gargles and/or may use topical anesthetic (eg. Chloraseptic spray) or lozenges to relieve dryness or throat pain). -Frequent hand washing or hand lead radiologic technologist is one of the best ways to prevent spread of infection. -Using a vaporizer or humidifier at night will also help thin secretions and help with coughing up phlegm. -Follow up with primary care provider in 7-10 days if condition is not improving - For new or worsening symptoms go directly to the nearest ER Patient Language: Bahamian Prescriptions: No Action amiodarone 200 mg tablet metoprolol succinate 50 mg tablet extended release 24 hr PO Men's 50 Plus Multivitamin 400-20-370 mcg tablet 1 tablet PO DAILY Rezdiffra 100 mg tablet 100 mg PO DAILY Qty: 90 3RF omeprazole 40 mg capsule,delayed release(DR/EC) 40 mg PO DAILY 90 Days Qty: 90 3RF atorvastatin 40 mg tablet 40 mg PO DAILY potassium chloride [K-Tab] 10 mEq Tablet Extended Release 10 meq PO DAILY@0800 Qty: 30 0RF aspirin [Children's Aspirin] 81 mg Tablet,Chewable 81 mg PO DAILY@0800 Qty: 30 0RF Entresto 24-26 mg Tablet 1 tab PO Q12HR Qty: 60 0RF furosemide [Lasix] 20 mg tablet 20 mg PO DAILY Qty: 30 0RF Eliquis 5 mg tablet 5 mg PO BID Qty: 20 0RF Follow-up/Referrals: Gauri Carrasquillo, RACK ROOM WORKER, HOUSE CLEANER SUPERVISOR-C [Primary Care Provider, Internal Medicine] - 1 Week Clinical Impression: Sinusitis Time of Disposition: 11:19
[2025-07-25 11:01] VITALS: BP 143/75; PULSE 50; RESP 16; TEMP 36.3; O2SAT 100
[2025-07-25 11:14] LABS: EDCOVIDSCREEN Negative (Negative); EDINFLUASCREEN Negative (Negative); EDINFLUBSCREEN Negative (Negative); EDSTREPNEGPOS1 Negative (Negative)
== END 2025-07-25 11:25 | disposition home or self-care (01) ==
PROVIDERS: Emergency Provider Nurse Practitioner; PCP Clinical Nurse Specialist
DX: J01.40 Acute pansinusitis, unspecified (principal); Z20.822 Contact with and (suspected) exposure to COVID-19; K21.9 Gastro-esophageal reflux disease without esophagitis; I25.2 Old myocardial infarction; I50.9 Heart failure, unspecified; I48.19 Other persistent atrial fibrillation; Z95.1 Presence of aortocoronary bypass graft
CPT/HCPCS: 87081; 87426; 87804; 87880; 99213; G0463